=== PATIENT | female | born 1965 | race Caucasian/White ===

== ENCOUNTER 2023-11-13 01:41 | Inpatient (IN) | payer OTHER, SELFPAY ==
[2023-11-12 18:39] VITALS: BP 144/93
[2023-11-12 18:53] LABS: % Basophils 0.9 % (0-2); % Eosinophils 2.1 % (0-6); % Immature Granulocytes 0.8 % (0-0.5); % Lymphocytes 21.2 % (20.5-51.1); % Monocytes 11.8 % (1.7-9.3); % Neutrophils 63.2 % (42.2-75.2); Absolute Basophils 0.1 10^3/uL (0-0.2); Absolute Eosinophils 0.1 10^3/uL (0-0.7); Absolute Immature Granulocytes 0.1 10^3/uL (0-0.05); Absolute Lymphocytes 1.4 10^3/uL (1.2-3.4); Absolute Monocytes 0.8 10^3/uL (0.1-0.6); Absolute Neutrophils 4.2 10^3/uL (1.4-6.5); Hemoglobin 12.1 g/dL (12.0-16.0); Mean Corp Hgb Conc. 35.6 g/dL (33.0-37.0); Mean Platelet Volume 9.4 fL (7.4-10.4); Nucleated Red Blood Cells % 0 %; Platelet Count 152 10^3/uL (130-400); Red Blood Cell Count 3.27 10^6/uL (4.20-5.40); Red Cell Dist. Width 13.5 % (11.5-14.5); White Blood Cell Count 6.6 10^3/uL (4.8-10.8)
[2023-11-12 19:04] LABS: INR 1.05; PT 13.7 Sec (11.4-14.6)
[2023-11-12 19:05] LABS: APTT 31.3 Sec (23.4-35.0)
[2023-11-12 19:12] LABS: ALT (SGPT) 29 U/L (0-35); AST (SGOT) 185 U/L (14-36); Albumin 4.9 g/dl (3.5-5.0); Alkaline Phosphatase 318 U/L (38-126); Blood Urea Nitrogen 14 mg/dl (7-17); Calcium 9.2 mg/dl (8.4-10.2); Carbon Dioxide 23 mmol/L (22-30); Glucose 118 mg/dl (70-99); Total Bilirubin 2.2 mg/dl (0.2-1.3); Total Protein 7.8 g/dl (6.3-8.2); eGFR > 60.00
[2023-11-12 19:33] LABS: Chloride 90 mmol/L (98-107); Potassium 3.8 mmol/L (3.5-5.1); Sodium 135 mmol/L (135-145)
--- NOTE | 2023-11-12 20:15 | ED.GENMED ---
History of Present Illness
General
Chief Complaint: Cough
Source: patient
Exam Limitations: none
Time Seen by Provider: 11/12/23 19:28
Travel History
Have you had any contact with someone who has COVID-19?: No
Do you have any symptoms of coronavirus? Fever > 100 degrees, chills, cough, shortness of breath, sore throat, loss of taste or smell, muscle aches, or headache?: No
History of Present Illness
History of Present Illness:
This is a 58 year old female that comes in with c/o coughing up blood. States that around 2:30pm she started to cough and it was a wet cough from her throat. States that she started to spit out blood. State that this lasted for about 2.5 hours.
States that t was mixed with mucous. States that there was also some blood from her nose. Denies any fever, chills, chest pain, SOB, abd pain, nausea, vomiting, diarrhea, headache, dizziness, urinary burning.
Past History
Past History
ED Past Medical History: Cancer (Mouth cancer, ) and Psychiatric (depression)
ED Past Surgical History: Other (Mouth cancer with removal of Lymph nodes, some of the right jaw removed, )
Social History
Tobacco: Former smoker
Alcohol: Occasional
Personal:
Living: with family
Employment: Employed
Family History
Family History: Other
Review of Systems
Review of Systems
All Other Systems: ROS reviewed and negative except as documented in HPI and ROS
Constitutional: Reports no symptoms; Denies fever or chills
EENT: Reports no symptoms
Respiratory: Reports hemoptysis; Denies trouble breathing
ABD/GI: Reports no symptoms; Denies abdominal pain, nausea, vomiting or diarrhea
: Reports no symptoms; Denies dysuria, frequency or urgency
Musculoskeletal: Reports no symptoms
Skin: Reports no symptoms
Neurological: Reports no symptoms; Denies dizzy or headache
Psychiatric: Reports no symptoms
Phy Exam
General Physical Exam
General Presentation: no apparent distress
General age: appears stated age
General Skin: warm and dry
General Habitus: normal
General Mental: alert
General Hydration: appears well hydrated
ENT Exam
ENT Exam: TM's normal, pharynx normal and neck supple
Eye Exam
Eye Exam: EOMI
Cardiovascular Exam
Cardiovascular Exam: regular rate/rhythm, no edema, normal peripheral pulses and other (Murmur)
Pulmonary Exam
Pulmonary Exam: no respiratory distress, chest non tender, no rhonchi, no wheezing, no cough and other (Fine crackles at bases)
Gastrointestinal Exam
Gastrointestinal Exam: normal bowel sounds, non tender, soft, no organomegaly, no pulsatile mass and non distended
Musculoskeletal Exam
Musculoskeletal Exam: full ROM and no edema
Skin Exam
Skin Exam: normal color, warm/dry, no rash and no petechia
Psychiatric Exam
Psychiatric Exam: normal mood/affect
Course
Orders/Labs/Results
Orders:
Orders
11/12/23 18:46
Alcohol Urgent
Complete Blood Count/With Diff Urgent
Comprehensive Metabolic Panel Urgent
Protime/PTT Urgent
11/12/23 20:14
CT Chest Pe Study Urgent
Comment: HISTORY OF MOUTH CANCER
Reason For Exam: cOUGHING UP BLOOD,
11/12/23 20:15
0.9% Sodium Chloride 500 ml [Nss] 500 ml IV BOLUS
11/12/23 20:23
Add On- LAB Urgent
Tests Added?: alcohol
Pantoprazole [Protonix IV] 40 mg IV NOW STA
11/13/23 01:25
Admit/Transfer Patient As Directed
Co-Sign Provider:
Level of Care: Inpatient admission
Assign to:: IMU- Intermediate Care
Physician / Group: Franki
Diagnosis: Hemoptysis
Reason for Hospitalization: Hemoptysis
Expected length of stay greater than two midnights?: Yes
ELOS- Estimated Length of Stay in days: 2
I certify the patient meets the requirements for IP care: Yes
Lorazepam [Ativan] 0.5 mg IV NOW STA
11/13/23 01:26
Code Status As Directed
Resuscitation Status: Full Code
11/13/23 01:30
COVID-19 Antigen Urgent
Source: Nasal Swab
11/13/23 02:00
Flush (0.9% Sodium Chloride) [Flush (Nss)] See Dose Instructions IV PER PROTOCOL
11/13/23 02:42
0.9% Sodium Chloride 1000 ml [Nss] 1,000 ml IV 125 mls/hr
0.9% Sodium Chloride [Nss (Preservative Free)] See Protocol IV PRN PRN
Acetaminophen [Tylenol] 650 mg PO Q4HPRN PRN
Doxycycline Hyclate [Vibramycin] 100 mg 0.9% Sodium Chloride 250 ml [Nss] 250 ml IV Q12H
FOLic ACID [Folvite] 1 mg 0.9% Sodium Chloride 50 ml [Nss] 50 ml IV DAILYPRN
Lorazepam [Ativan] 1 mg IV Q1HPRN PRN
Lorazepam [Ativan] 1 mg PO Q2HPRN PRN
Lorazepam [Ativan] 2 mg IV Q1HPRN PRN
Ondansetron Injectable [Zofran] 4 mg IV Q6HPRN PRN
Pantoprazole [Protonix IV] 40 mg IV Q12H
11/13/23 02:42
Case Management Consult Once
Case Management Consult: Other
Comment: Substance abuse counseling
Consult Notification Routine
Specialty to Notify: Pulmonary
DIETARY CONSULT Routine
Reason for Consult: Nutrition support, possible refeeding guidelines
PULMONARY CONSULT Routine
Consulting Provider: Andrew Fox
Was physician already notified: No
Reason for consult: Hemoptysis
Ferritin Routine
Iron Routine
Total Iron Binding Routine
Vitamin B12 Routine
Activity As Directed
Activity Level: Bedrest
EKG with chest pain [ECG as needed] As Directed
ECG as needed for:: Chest Pain
I/O [Intake/ Output] As Directed
Frequency: Per unit guidelines
MSAS SCORE As Directed
MSAS Score 0-4: Repeat MSAS every 2 hours until 0-4 for three consecutive assessments, then every 4 hours x 48
hours.
MSAS Score 5-7: For MILD withdrawl symptoms. Repeat MSAS and RASS every 2 hours
MSAS Score 8-11: For MODERATE withdrawal symptoms. Repeat MSAS and RASS every 1 hour. Consider ICU or IMU
level of care.
MSAS Score > 11: For SEVERE withdrawal symptoms. Repeat MSAS and RASS every 1 hour. Notify provider, consider
ICU level of care.
MSAS Additional Instructions: If no improvement or no decrease in score from severe to moderate within 12
hours, consult psychiatry
MSAS Notify Provider: Notify provider if patient requires more than 10 mg of Lorazepam in eight hour period.
Orthostatic Vital Signs As Directed
Orthostatic VS Frequency: BID
Pneumatic Compression Sleeves As Directed
Type: Knee high
Precautions As Directed
Type of Precautions: Aspiration
Quantify Hemopytsis As Directed
Vital Signs As Directed
Frequency: Per unit guidelines
Oxygen Therapy [O2 Therapy] [RESP] Routine
Titrate/Wean O2 to maintain O2 sat greater than (%): 94
DX Deep Vein Thrombosis Video Routine
11/13/23 06:00
Basic Metabolic Panel IN AM
Complete Blood Count/No Diff IN AM
11/13/23 08:00
FOLic ACID [Folvite] 1 mg PO DAILY
Thiamine Injection 200 mg IV Q12
11/13/23 22:00
Mirtazapine [Remeron] 30 mg PO HS
11/14/23 Breakfast
NPO
Allow oral meds: Yes
Allow clear liquids: Sips of Clears
11/16/23 08:00
Thiamine HCl [Vitamin B1] 100 mg PO BID
Abnormal Lab Results
11/12/23
18:46
RBC 3.27 L 10^6/uL
(4.20-5.40)
Hct 34.0 L %
(37.0-47.0)
MCV 104.0 H fL
(81.0-99.0)
MCH 37.0 H pg
(27.0-31.0)
Abs Immat Gran (auto) 0.1 H 10^3/uL
(0-0.05)
Absolute Monos (auto) 0.8 H 10^3/uL
(0.1-0.6)
Immature Gran % 0.8 H %
(0-0.5)
Monocytes % 11.8 H %
(1.7-9.3)
Chloride 90 L mmol/L
(98-107)
Creatinine 0.4 L mg/dL
(0.6-1.0)
Glucose 118 H mg/dl
(70-99)
Total Bilirubin 2.2 H mg/dl
(0.2-1.3)
AST 185 H U/L
(14-36)
Alkaline Phosphatase 318 H U/L
(38-126)
11/12/23 18:46
11/12/23 18:46
Anemia, Chloride low, glucose nonfasting. total chuy elevation. AST elevation. Alk phos elevation. PT 13.7 with INR 1.05, PTT 31.3 Alcohol 64,
Vital Signs
Initial and Last Documented VS:
Initial Vital Signs
Temp Pulse Resp BP Pulse Ox
98.2 F 103 18 144/93 97
11/12/23 18:39 11/12/23 18:39 11/12/23 18:39 11/12/23 18:39 11/12/23 18:39
Last Documented Vital Signs
Temp Pulse Resp BP Pulse Ox
98.2 F 88 21 110/72 98
11/12/23 18:39 11/13/23 02:15 11/13/23 02:15 11/13/23 02:00 11/12/23 20:24
MDM/Problems Addressed
Differential Diagnosis Includes:
PNA, PE, Metastatic disease
MDM/Problems Addressed:
This is a 58 year old female that comes in with c/o coughing up blood. states that she just started about 2:30pm with a wet cough that was blood and mixed with mucous. States that this lasted for about 2.5 hours and now seems to have stopped.
Will get labs and CT chest
Back to see patient and was going to discharge but patient started cought up clots of blood. Will admit. Hospitalist notified.
Chronic conditions affecting care: Cancer
Acute Exacerbation and/or Progression of Chronic Illness: Cancer
*Radiology
Radiology exam reviewed: radiology read reviewed (CT-No CT evidence for pulmonary embolism. No aortic dissection. Stable exam of the lungg. No adenopathy. Fatty infiltration of the liver. )
*Pulse Oximetry
Patient hypoxic: no
*EKG
Interpreted by ED Provider?: NA
Rate: EKG- N/A
*Independent Freight Agent Interpretation
Rate: Independent Freight Agent- N/A
*Critical Care Note
Total Time (30-74mins, 75-104mins- exclusive of procedures): Not Applicable
ED Attending Note
-
Portions of this chart may have been created with voice recognition software.� Occasional wrong word or��sound alike� substitutions may have occurred due to the inherent limitations of voice recognition software.
Discharge Plan
Departure
Patient Disposition: Admit
Date of Disposition: 11/12/23
Time of Disposition: 23:56
Admit to: IMU
Presentation/result/management discussed w/ accepting MD/DO: Hospitalist
Patient with high blood pressure during this ER visit?: Yes
Condition: Good
Covid-19: Not Applicable
Discharge Problem:
Hemoptysis
Interventions
Interventions:
*Risk Screen - Suicide Last Done: 11/12/23 18:39
*General Assessment Last Done: 11/12/23 18:39
*Neglect/Abuse Screening Last Done: 11/12/23 18:39
ED- Fall Risk Assessment Last Done: 11/13/23 00:58
*ED COVID-19 Vaccine History Last Done: 11/13/23 02:50
*Nursing Disposition Last Done: 11/13/23 02:48
ED- Pulmonary Assessment Last Done: 11/13/23 00:58
Discharge Date and Time
Discharge Date/Time: 11/13/23 02:49
[2023-11-12 20:24] VITALS: BP 127/84
[2023-11-12] MEDS: PROTONIX IV 40 MG IV (20:44)
[2023-11-12] MEDS: NSS 500 IV (20:45)
[2023-11-12 20:48] LABS: Alcohol 64 mg/dl
[2023-11-13] VITALS (17 sets, daily range): BP systolic 110–156; BP diastolic 72–96; PULSE 80–99; BMI 21.6; BMI 20.9; BMI 20.8
--- NOTE | 2023-11-13 01:34 | HPS.HSE ---
Family Physician
-
Family Physician: Ponce Iyer
Chief Complaint
-
Coughing up blood
History of Present Illness
Patient is a 58y F with PMH significant for squamous cell carcinoma of the mouth who presents to ED complaining of coughing up blood. Patient states that she was feeling fairly well until about 2:30 this afternoon when she developed a 'wet
sounding cough'. Patient states that she started to cough up bright red blood. This went on for roughly 2 1/2 hours during which patient estimates she coughed up 1-2 cups of blood total. She presented initially to an Urgent Care and was then
directed to the ED. Patient had no further coughing or other symptoms during her several hour stay here. CT scan of the chest done in the ED was unremarkable.
Around 12:30 AM, patient again began to cough and again produced significant amounts of bright red blood.
She denies any fevers, chills, chest pain, SOB, N/V/D, etc.
Medical History
Past Medical History
Past Medical History: Reports Other
Additional Past Medical History:
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
Anxiety / Depression
Past Surgical History: Reports Other
Additional Past Surgical History:
Right Head / Neck Dissection and Carcinoma Excision (2020)
Social History
Tobacco: Former Smoker (Quit smoking 10 years ago. Approx 20 pack years total use.)
Alcohol: Occasional (Patient reports about 4 drinks per week.)
Drug: None
Personal:
Living: With Family
Family History
Family History: Hypertension and Other (Father: Blood clots.)
Allergies / Home Medications
Allergies reflects when Allergies were last updated in [facility].
Home Medications with original date entered in [facility]
Allergy/Medication List:
Allergies
Allergy/AdvReac Type Severity Reaction Status Date / Time
Penicillins Allergy Hives Verified 11/12/23 18:41
seasonal Allergy Unknown Uncoded 11/12/23 18:41
Home Medications
mirtazapine 30 mg tablet 30 mg PO HS 11/12/23
Review of Systems
-
History Source: Patient
A 12 point ROS was completed and negative except as noted: Yes
Constitutional: Denies Fever, Fatigue or Chills
EENT: Denies Sore Throat or Runny Nose
Respiratory: Reports Cough and Hemoptysis; Denies Trouble Breathing
Cardiac: Denies Chest Pain or Palpitations
Abdomen/GI: Denies Abdominal Pain, Nausea, Vomiting, Diarrhea, Bloody Stools or Black Stools
: Denies Dysuria, Frequency, Flank Pain or Bleeding
Musculoskeletal: Denies Joint Pain, Joint Swelling or Edema
Neurological: Reports Headache; Denies Dizzy
Psych: Reports Anxiety; Denies Depression
Physical Exam
Vital Signs
Vital Signs
Temp Pulse Resp BP Pulse Ox
98.2 F 76 20 127/84 98
11/12/23 18:39 11/12/23 20:24 11/12/23 20:24 11/12/23 20:24 11/12/23 20:24
Physical Exam
General: Other (58y F in mild distress due to anxiety / cough.)
HEENT: Moist mucous membranes, PERRLA and Other (Post-surgical changes in the mouth - but no mucosal lesions and no appreciated bleeding.)
Respiratory: Other (Focal rales are appreciated at the L base and over the R mid-lung. No other W/R/R.)
Cardiac: S1/S2 and Regular Rhythm; No Murmur
GI: Soft, Non Tender, Non Distended and Normal Bowel Sounds
Musculoskeletal: No Clubbing, No Cyanosis and No Edema
Neuro: AO x 3
Psych: Anxious
Laboratory Results
-
11/12/23 18:46
11/12/23 18:46
Laboratory Results
PT 13.7 Sec (11.4-14.6) 11/12/23 18:46
INR 1.05 11/12/23 18:46
APTT 31.3 Sec (23.4-35.0) 11/12/23 18:46
Total Bilirubin 2.2 mg/dl (0.2-1.3) H 11/12/23 18:46
AST 185 U/L (14-36) H 11/12/23 18:46
ALT 29 U/L (0-35) 11/12/23 18:46
Alkaline Phosphatase 318 U/L (38-126) H 11/12/23 18:46
Impression/Plan
-
A/P: Patient is a 58y F with PMH significant for squamous cell carcinoma of the mouth who presents to ED complaining of hemoptysis.
Hemoptysis
- Admit for further evaluation and treatment.
- CT chest with no acute findings to explain current presentation.
- Infectious etiology / bronchitis remains most likely possibility - will cover with doxycycline for now.
- Pulmonary evaluation for additional work-up / recommendations - though not entirely certain blood is pulmonary in origin.
- Quantify hemoptysis.
- Check COVID status.
- Monitor for any new / worsening symptoms, developing fevers, etc.
- Follow H&H for any changes.
Alcohol Use Disorder
Anxiety / Depression
- Patient with positive alcohol level and abnormal LFTs today in the ED.
- ? if alcohol intake as noted on H&P is understated. Patient notes that her checked into an alcohol rehab center this AM.
- Follow for signs / symptoms of withdrawal and treat with as-needed BZDs.
- Thiamine / folate / MVI replacement.
- IV PPI BID for now.
- Consider GI evaluation if no Pulmonary source of bleeding can be determined.
- Heme test stools.
- Continue HS mirtazapine.
History of Squamous Cell Carcinoma
- Patient s/p head and neck surgery 3 years ago. No adjuvant treatments done at that time.
- Basic oropharyngeal exam in the ED is unremarkable with no evident lesions and no source of bleeding.
- Consider ENT evaluation if other source of bleeding cannot be identified.
DVT Prophylaxis: SCDs
Code Status: Full
[2023-11-13] MEDS: ATIVAN 0.5 MG IV (01:38)
[2023-11-13 01:58] LABS: COVID-19 Antigen Negative (Negative)
[2023-11-13 03:15] LABS: Hematocrit 29.6 % (37.0-47.0); Mean Corp Hgb Conc. 37.2 g/dL (33.0-37.0); Mean Corpuscular Hgb 37.8 pg (27.0-31.0); Mean Corpuscular Volume 101.7 fL (81.0-99.0); Mean Platelet Volume 9.6 fL (7.4-10.4); Platelet Count 127 10^3/uL (130-400); Red Blood Cell Count 2.91 10^6/uL (4.20-5.40); Red Cell Dist. Width 13.5 % (11.5-14.5); White Blood Cell Count 5.7 10^3/uL (4.8-10.8)
[2023-11-13 03:38] LABS: Blood Urea Nitrogen 13 mg/dl (7-17); Calcium 8.4 mg/dl (8.4-10.2); Carbon Dioxide 25 mmol/L (22-30); Chloride 92 mmol/L (98-107); Estimated Creatinine Clearance 93 ml/min; Glucose 92 mg/dl (70-99); Iron 232 ug/dl (37-170); Potassium 3.5 mmol/L (3.5-5.1); Sodium 130 mmol/L (135-145); eGFR > 60.00
[2023-11-13 03:46] LABS: Percent Saturation 111 % (20-50); Total Iron Binding Capacity 208 ug/dl (265-497)
[2023-11-13] MEDS: REMERON 30 MG PO ×2 (04:24→21:45)
[2023-11-13] MEDS: NSS 1000 IV ×3 (04:25→21:45)
[2023-11-13] MEDS: VIBRAMYCIN 260 MG IV ×2 (04:25→15:37)
[2023-11-13 04:47] LABS: Vitamin B12 349 pg/ml (239-931)
--- NOTE | 2023-11-13 05:08 | PTCARENOTE ---
received patient from the ER. ambulated from the stretcher to bed with minimal assist. slightly unsteady on her feet. alert and orientated x3. pleasant and cooperative. pt on room air sats in the high 90's. NS on the monitor. no further episodes of
coughing up blood since shes been on the floor. NPO except for sips of clears and meds. +BS. NSS infusing with ATB's. ambulated to the bathroom with assist without incident. labs pending.
--- NOTE | 2023-11-13 05:10 | PTCARENOTE ---
pt expressed concern to me that she has 4 dogs at home and she doesn't have anyone to take care of them while she is here. will notify the oncoming nurse.
--- NOTE | 2023-11-13 07:43 | CON.INTV ---
Consultation
Consultation Request
Date/Time Consultation Requested: 11/13/2023-7 AM
Date/Time Consultation Performed: 11/13/2023-7:30 AM
Requesting Provider: hospitalist
Performing Provider: Dr. Fox
Reason for Consultation: Hemoptysis
Medical History
-
Chief Complaint: Hemoptysis
History of Present Illness:
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
Patient states that she has never had hemoptysis before. She was to see ENT at [place] in October. She has not had any evidence for recurrence. She quit smoking 10 years ago. She is not on inhalers. She currently denies any chest pain, chest
tightness, pleurisy, abdominal pain, nausea, vomiting, weakness, and admits to drinking 2-3 drinks several times weekly but never been through withdrawal. Her was admitted to rehab yesterday for alcohol use disorder. She has 4 dogs and she
needs someone to take care of them. She is requesting to be discharged soon as possible.
Past Medical History
Past Medical History: None (Head and neck CA-squamous cell 3 years ago stage I-resected [place]. Anxiety. Depression. Frequent alcohol use-denies ever going through withdrawal.)
Social History
Tobacco: Former Smoker (00-xnyc-omci quit 10 years ago)
Alcohol: Daily (Several times weekly)
Drug: None
Personal:
Living: With Family
Occupational Exposures: No known asbestos exposure
Environmental Exposures: No known tuberculosis exposure
Family History
Family History: Reviewed & Not Pertinent and Other (Hypertension and father with 'blood clots')
Allergies / Home Medications
Allergies
Allergy/AdvReac Type Severity Reaction Status Date / Time
Penicillins Allergy Hives Verified 11/12/23 18:41
seasonal Allergy Unknown Uncoded 11/12/23 18:41
Home Medications
Medication Instructions Recorded Confirmed Last Taken Type
mirtazapine 30 mg tablet 30 mg PO HS 11/12/23 11/12/23 11/11/23 History
Review of Systems
-
Unable to Obtain full review of systems at this time due to: Other (Per HPI)
Vitals / Labs / Diagnostic Testing
Vital Signs
Temp Pulse Resp BP Pulse Ox
98.6 F 97 43 119/81 96
11/13/23 04:23 11/13/23 06:15 11/13/23 06:15 11/13/23 06:00 11/13/23 06:15
Lab Data
11/13/23 03:05
11/13/23 03:05
Laboratory Results
11/12/23
18:46
PT 13.7
INR 1.05
APTT 31.3
Diagnostic Testing:
Physical Exam
-
Exam:
Well-nourished and well-developed in no apparent distress
HEENT-atraumatic, normocephalic
Neck-supple, no JVD, no bruit
Heart-regular rate and rhythm-no murmurs, rubs or gallops
Chest-clear to auscultation, no wheezes, crackles
Back-no tenderness
Abdomen-soft, nontender, nondistended, no hepatosplenomegaly
Extremities-no cyanosis, clubbing, edema and good peripheral pulses
Integument-intact, no rashes, lesions or ecchymosis
Neurology-alert and oriented, nonfocal motor and sensory exam
Assessment
-
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
Assessment
Hemoptysis-suspect related to bronchitis-will need ENT evaluation and if persists consider bronchoscopy
Mild zciset-rgjokpojzy-vsarvtgedh 11.0
Mild thrombocytopenia
Mild hyponatremia-serum sodium 130
Elevated total bilirubin
AST elevation
Elevated TSH
Alcohol level 64
Conditions present prior to admission:
Head and neck CA-squamous cell 3 years ago stage I-resected [place].
Anxiety.
Depression.
Fatty liver
Frequent alcohol use-denies ever going through withdrawal-possible alcohol use disorder
Abnormal CT chest-pulmonary nodule-2 mm right upper lobe and 6 mm wedge-shaped opacification, stable for 2.5 years
Plan
Hemoptysis has resolved and etiology unclear
CT chest reviewed and does not reveal etiology of hemoptysis
ENT evaluation with her ENT physician at [facility] recommended
If hemoptysis recurs and no head and neck reasons for hemoptysis then bronchoscopy may be indicated
Not requiring oxygen
Check sputum
Empiric antibiotics
Monitor for alcohol withdrawal and treatment protocol if indicated
admitted to rehab for alcohol abuse yesterday and she reports they have 4 dogs and would like to be discharged to take care of them as her neighbor can no longer take care of them-I relayed this to primary team
Follow hemoglobin
Check B12 and folate levels
Monitor thrombocytopenia
Replace electrolytes
Follow LFTs
Consider repeat TSH as an outpatient or low-dose replacement therapy
DVT prophylaxis-mechanical with hemoptysis
Nutrition
Early mobilization
Outpatient pulmonary exdeek-pf-[id number], monitor hemoptysis, consider yearly low-dose lung cancer screening CT if qualifies
Reviewed with nursing and primary team
Diagnostic data:
CT neck 04/12/2021-site of primary malignancy is not clearly identified on the CT, negative for lymphadenopathy
CT neck 08/05/2023-postoperative changes, no recurrent mass lesion or lymphadenopathy identified
CT chest 09/26/22-6 mm somewhat triangular-shaped opacification right upper lobe [id number]-teeq possibly chronic, no suspicious lymphadenopathy or pleural effusions
CT chest 08/05/2023-no findings suspicious for metastatic disease, interval development of hepatic fatty infiltration, mild right hemidiaphragm elevation
CT chest 11/12/2023-no CT evidence for pulm embolism, no dissection, tiny 2 mm nodule right upper lobe which in retrospect was present on prior exam 2 and half years ago and likely benign, 6 mm wedge-shaped opacification also seen and unchanged
PET scan 04/18/2021-focal region of FDG activity right lateral floor of oral cavity consistent with patient's known oral squamous cell carcinoma SUV max 4.7, delayed 5.3, no PET evidence for metastatic disease
Data Reviewed
-
EKG: Report reviewed by me
Radiology: Report reviewed by me
CT Scan: Image personally visualized and interpreted and Report reviewed by me
Labs: Labs reviewed by me
Old Records: Reviewed
Total Time Spent with Patient (in minutes): 50
--- NOTE | 2023-11-13 08:03 | W.PN.HOSP.TC ---
Today's Communication/Plan
-
Check labs
Echo
Pulmonary consult
Resume diet
Fluid restriction
Assessment / Plan
Assessment / Plan
Gen-AAOx3, NAD
HEENT-NC, AT, anicteric, clear oral mm
Neck-supple
CV-reg, positive M, +S1/S2
Lungs-clear B/L
Abd-soft, NT, ND
Ext-no edema
Musculoskeletal-no cyanosis, clubbing
Skin-warm and dry
Neuro-grossly non-focal
Psych-calm, cooperative
Acute hemoptysis -possibly due to acute tracheobronchitis. No evidence of pneumonia. Not hypoxic. CT chest negative for pulmonary embolism. Doubt malignancy recurrence. Pulmonary consulted.
Acute anemia, macrocytic -hemoglobin 11.0. Possibly acute blood loss anemia due to hemoptysis. Check anemia labs. Hemodynamically stable.
Acute thrombocytopenia -platelet count 127k, possibly due to consumption. Monitor for now.
Hyponatremia -sodium 130. Possibly due to bleeding. Alcohol use may be contributing. Fluid restriction. Check labs.
History of stage I head and neck cancer -resected in 2020 at [facility]. Follow-up with ENT after discharge.
Moderate mitral regurgitation -noted on prior echo from May 2022. Check echocardiogram for follow-up given ongoing murmur.
Alcohol use disorder -recommend cutting down.
Full code
Anticipated Discharge: Within 24 hours
Subjective/Interval History
-
Date of Service: November 13, 2023
Patient seen/examined, Denies further hemoptysis. No shortness of breath. No complaints.
Objective Data
-
Labs:
Laboratory Results
11/13/23
03:05
WBC 5.7
Hgb 11.0 L
Hct 29.6 L
Plt Count 127 L
Sodium 130 L
Potassium 3.5
Chloride 92 L
Carbon Dioxide 25
BUN 13
Creatinine 0.4 L
Glucose 92
Calcium 8.4
Total Bilirubin Pending
AST Pending
ALT Pending
Alkaline Phosphatase Pending
Vital Signs:
Vital Signs
Temp Pulse Resp BP Pulse Ox
98.6 F 97 43 119/81 96
11/13/23 04:23 11/13/23 06:15 11/13/23 06:15 11/13/23 06:00 11/13/23 06:15
Review of Systems
-
History Source: Patient
All other systems: Reviewed and negative
[2023-11-13 08:06] LABS: ALT (SGPT) 24 U/L (0-35); AST (SGOT) 133 U/L (14-36); Albumin 4.1 g/dl (3.5-5.0); Alkaline Phosphatase 270 U/L (38-126); Direct Bilirubin 0.9 mg/dl (0.0-0.4); Total Bilirubin 2.5 mg/dl (0.2-1.3); Total Protein 6.7 g/dl (6.3-8.2)
[2023-11-13] MEDS: FOLVITE 1 MG PO (08:36)
[2023-11-13] MEDS: NSS (PRESERVATIVE FREE) 10 ML IV ×2 (08:36→19:47)
[2023-11-13] MEDS: THIAMINE INJECTION 200 MG IV ×2 (08:37→19:47)
[2023-11-13] MEDS: PROTONIX IV 40 MG IV ×2 (08:37→19:47)
[2023-11-13 08:52] LABS: Cortisol, Random 18.9 ug/dl; TSH 8.26 uIU/ml (0.47-4.68)
[2023-11-13 09:28] LABS: Folate 2.7 ng/ml (2.76-20)
--- NOTE | 2023-11-13 11:09 | CM ---
CM following re: discharge planning.
Discussed in Rounds, reviewed pt's chart, met with pt.
Pt is a 58 year old female, admitted with primary dx of Acute hemoptysis.
Pt reports she lives with in a 2SH, 3 steps to enter, has no children, has 4 dogs. Pt reports her currently at [facility] inpatient residential D&A rehab. Pt admitted to sig h/o alcohol abuse, pt stated she has been
drinking for all her entire life, stopped drinking last year on [place] and relapsed yesterday. Pt reports her drink of choice is vodka and she usually drinks 3-4 glasses of vodka daily. Pt stated her father was alcoholic. Pt reports she feels she
will need to go to inpatient D&A rehab but cannot do it right now because she has to care for dogs at home. Pt reports she will go to inpatient D&A rehab when her returns back home after the completion of his inpatient residential D&A
program. Pt reports she has been receiving counseling services from [facility] D&A program center
CM provided pt with information regarding [facility] and pt stated that [facility] helped her to get to inpatient residential D&A rehab and she expressed her agreement to meet with [facility] team. A referral to [facility] made, spoke to MARCELLE Fuentes and she
will meet with pt today.
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 No VN or SNF history.
PCP: [facility]
Ph[facility]acy: [facility]
D/C plan: home with resumptions of counseling services at [facility] and to follow up with [facility].
CM will follow with discharge plan updates as hospitalization progresses
--- NOTE | 2023-11-13 11:50 | PTCARENOTE ---
Completed assessment done this morning, Pt assisted to bathroom several times today, voiding without difficulty yellow urine. Pt is steady on feet, however pt knows to use her call hunt before she gets up. Pt without any coughing up blood episodes
today. Emesis basin at bedside. HR SR as per monitor, BP stable, sl murmur heard on auscultation. O2 sat= 95% on room air, lobes clear bilat. Pt ate breakfast without any difficulties. Pt able to go to IMU bed when available. Call hunt at her side.
[2023-11-13 14:02] LABS: Osmolality Urine 334 mOsm/kg (300-900)
[2023-11-13 14:04] LABS: Free T4 1.33 ng/dl (0.78-2.19)
[2023-11-13 14:11] LABS: Urine Sodium 90 mmol/L (30-90)
[2023-11-13] MEDS: VITAMIN B-12 1000 MCG PO (14:54)
--- NOTE | 2023-11-13 20:00 | PTCARENOTE ---
Assume care from AM RN. AAOx3. MSAS score 2-3. NSR in the monitor. Lung sounds are clear and diminished at the bases. SaO2 04% RA. Shallow breathing. Frequent urination. GI WNL. Pt appears comfortable in bed and call hunt within reach.
[2023-11-14] VITALS: BP 124/73
[2023-11-14 02:00] VITALS: BP 126/86
[2023-11-14 04:00] VITALS: BP 120/84
[2023-11-14] MEDS: VIBRAMYCIN 260 MG IV (04:12)
[2023-11-14 04:41] LABS: Hemoglobin 9.5 g/dL (12.0-16.0); Mean Corp Hgb Conc. 35.2 g/dL (33.0-37.0); Mean Corpuscular Hgb 36.8 pg (27.0-31.0); Mean Corpuscular Volume 104.7 fL (81.0-99.0); Mean Platelet Volume 10.2 fL (7.4-10.4); Platelet Count 117 10^3/uL (130-400); Red Blood Cell Count 2.58 10^6/uL (4.20-5.40); Red Cell Dist. Width 13.3 % (11.5-14.5); White Blood Cell Count 4.4 10^3/uL (4.8-10.8)
[2023-11-14 04:52] VITALS: BP 125/81
[2023-11-14 05:03] LABS: Blood Urea Nitrogen 8 mg/dl (7-17); Calcium 7.7 mg/dl (8.4-10.2); Carbon Dioxide 26 mmol/L (22-30); Chloride 106 mmol/L (98-107); Estimated Creatinine Clearance 89 ml/min; Glucose 88 mg/dl (70-99); Potassium 3.1 mmol/L (3.5-5.1); Sodium 137 mmol/L (135-145); eGFR > 60.00
[2023-11-14] MEDS: KCL 40 MEQ PO (05:46)
[2023-11-14] MEDS: NSS 1000 IV (05:46)
[2023-11-14 06:00] VITALS: BP 123/86
--- NOTE | 2023-11-14 07:05 | W.PN.PUL.V3 ---
Today's Communication / Plan
-
Monitor hemoptysis-appears to have resolved
Finite course of antibiotics
Outpatient pulmonary follow-up
Assessment
-
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
Assessment
Hemoptysis-suspect related to bronchitis-will need ENT evaluation and if persists consider bronchoscopy
Mild vamywg-npcuavsssu-busdxoqstq 11.0
Mild thrombocytopenia
Mild hyponatremia-serum sodium 130
Elevated total bilirubin
AST elevation
Elevated TSH
Alcohol level 64
Conditions present prior to admission:
Head and neck CA-squamous cell 3 years ago stage I-resected [facility].�
Anxiety.�
Depression.
Fatty liver
Frequent alcohol use-denies ever going through withdrawal-possible alcohol use disorder
Abnormal CT chest-pulmonary nodule-2 mm right upper lobe and 6 mm wedge-shaped opacification, stable for 2.5 years
Plan
Hemoptysis resolved
Note CT chest reviewed and does not reveal etiology of hemoptysis
ENT evaluation with her ENT physician at [facility] recommended
If hemoptysis recurs and no head and neck reasons for hemoptysis then bronchoscopy may be indicated
Supplemental oxygen as needed-currently on room air
Check sputum-unable to produce sputum
Empiric antibiotics-finite course
Monitor for alcohol withdrawal and treatment protocol if indicated
admitted to rehab for alcohol abuse yesterday and she reports they have 4 dogs and would like to be discharged to take care of them as her neighbor can no longer take care of them-I relayed this to primary team
Monitor hemoglobin
Folate 2.7
B12 pending
Random cortisol 18.9
TSH mildly elevated 8.26
Follow thrombocytopenia
Continue to replace electrolytes
Follow LFTs-can be followed up as an outpatient
Consider repeat TSH as an outpatient and consider low-dose replacement therapy if TSH rising
DVT prophylaxis-mechanical with hemoptysis
Nutrition
Increase activity
Outpatient pulmonary [id number]-uu-NEEn, monitor hemoptysis, consider yearly low-dose lung cancer screening CT if qualifies
Stable for proposed discharge
Reviewed with nursing and primary team
Diagnostic data:
CT neck 04/12/2021-site of primary malignancy is not clearly identified on the CT, negative for lymphadenopathy
CT neck 08/05/2023-postoperative changes, no recurrent mass lesion or lymphadenopathy identified
CT chest 09/26/22-6 mm somewhat triangular-shaped opacification right upper lobe jhj-ouya-pobv possibly chronic, no suspicious lymphadenopathy or pleural effusions
CT chest 08/05/2023-no findings suspicious for metastatic disease, interval development of hepatic fatty infiltration, mild right hemidiaphragm elevation
CT chest 11/12/2023-no CT evidence for pulm embolism, no dissection, tiny 2 mm nodule right upper lobe which in retrospect was present on prior exam 2 and half years ago and likely benign, 6 mm wedge-shaped opacification also seen and unchanged
PET scan 04/18/2021-focal region of FDG activity right lateral floor of oral cavity consistent with patient's known oral squamous cell carcinoma SUV max 4.7, delayed 5.3, no PET evidence for metastatic disease
Subjective Data
-
Date of Service:
Date of Service: November 14, 2023
Chief Complaint: Pulmonary Follow Up and Dyspnea Follow Up
Subjective:
Feels better, anxious to be discharged home, no hemoptysis, no shortness of breath, chest pain or abdominal pain
Review of Systems
General: Other (Per HPI)
Objective Data
Data Reviewed
Vital Signs / I&O:
Vital Signs
Temp Pulse Resp BP Pulse Ox
98.2 F 88 18 123/86 94
11/14/23 04:20 11/14/23 06:00 11/14/23 06:00 11/14/23 06:00 11/14/23 04:52
Intake and Output
11/13/23 11/14/23 11/15/23
06:59 06:59 06:59
Intake Total 4815 / 4815
Output Total 1450 / 1450
Balance 3365 / 3365
SaO2: 94
Physical Exam
General: Respiratory Distress (n) and Comfortable
HEENT: Normocephalic, Anicteric and Moist Mucous Membranes
Cardiovascular: Regular Rhythm
Respiratory: Wheeze (n), Crackles (n), Rhonchi, Non-Labored Respirations and Accessory Resp Muscle Use (n)
GI: Soft, Non Distended and Non Tender
Neurology: Awake, Alert and No Motor Deficits
Skin: Warm, Good Color and Cyanosis (n)
Labs/Micro/Reports
Lab Data
11/14/23 04:20
11/14/23 04:20
[2023-11-14] MEDS: VITAMIN B-12 1000 MCG PO (07:39)
[2023-11-14] MEDS: FOLVITE 1 MG PO (07:39)
[2023-11-14] MEDS: THIAMINE INJECTION 200 MG IV (07:40)
[2023-11-14] MEDS: PROTONIX IV 40 MG IV (07:40)
[2023-11-14] MEDS: NSS (PRESERVATIVE FREE) 10 ML IV (07:40)
[2023-11-14 08:00] VITALS: BP 124/83
--- NOTE | 2023-11-14 08:11 | W.PN.HOSP.TC ---
Today's Communication/Plan
-
Discharge
Assessment / Plan
Assessment / Plan
Gen-AAOx3, NAD
HEENT-NC, AT, anicteric, clear oral mm
Neck-supple
CV-reg, positive M, +S1/S2
Lungs-clear B/L
Abd-soft, NT, ND
Ext-no edema
Musculoskeletal-no cyanosis, clubbing
Skin-warm and dry
Neuro-grossly non-focal
Psych-calm, cooperative
Acute hemoptysis -possibly due to acute tracheobronchitis. No evidence of pneumonia. Not hypoxic. CT chest negative for pulmonary embolism. Doubt malignancy recurrence. Appreciate pulmonary input.
Acute anemia, macrocytic -hemoglobin down to 9.5. Possibly acute blood loss anemia due to hemoptysis. Component of dilution from IV fluids possible. B12 and folic acid deficiency noted, likely contributing factor to her anemia. Continue oral
repletion.
Acute thrombocytopenia -platelet count 117k, possibly due to consumption. Monitor for now.
Pancytopenia -as above. Recommend alcohol cessation. Discussed with patient. Monitor CBC after discharge with PCP.
Hyponatremia -sodium 137. Possibly due to bleeding. Alcohol use may be contributing. Fluid restriction.
History of stage I head and neck cancer -resected in 2020 at [facility]. Follow-up with ENT after discharge.
Moderate mitral regurgitation -noted on prior echo from May 2022. Echocardiogram unchanged. Outpatient follow-up.
Alcohol use disorder -recommend cutting down. Discussed with patient.
Full code
Dispo -stable for discharge. Recommend outpatient follow-up with pulmonary. Follow-up with PCP next week. Advised to return to the emergency room with significant hemoptysis.
32 minutes spent in discharge process.
Anticipated Discharge: Today
Subjective/Interval History
-
Date of Service: November 14, 2023
Patient seen and examined. Eager to go home. No more hemoptysis.
Objective Data
-
Labs:
Laboratory Results
11/14/23
04:20
WBC 4.4 L
Hgb 9.5 L
Hct 27.0 L
Plt Count 117 L
Sodium 137
Potassium 3.1 L
Chloride 106
Carbon Dioxide 26
BUN 8
Creatinine 0.4 L
Glucose 88
Calcium 7.7 L
Vital Signs:
Vital Signs
Temp Pulse Resp BP Pulse Ox
98.5 F 88 18 123/86 94
11/14/23 08:10 11/14/23 06:00 11/14/23 06:00 11/14/23 06:00 11/14/23 07:05
I&O
11/13/23 11/14/23 11/15/23
06:59 06:59 06:59
Intake Total 4815 / 4815
Output Total 1450 / 1450
Balance 3365 / 3365
Review of Systems
-
History Source: Patient
All other systems: Reviewed and negative
--- NOTE | 2023-11-14 08:26 | W.DS.TRANS ---
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
-
Discharge Instructions:
Discharge Diagnosis/Procedures Acute bronchitis, hemoptysis, pancytopenia,
elevated liver enzymes
Diet Regular
Activity As tolerated
Driving Restrictions As prior to admission
Bathing Restrictions None
Blood Work CBC and CMP next week with your primary care
doctor
Instructions:
Stand-Alone Forms:
Changes to Home Medications: No
Discharge Medications:
DC Medications w/original date entered in [employer]
mirtazapine 30 mg tablet 30 mg PO HS 11/12/23
cyanocobalamin (vitamin B-12) 1,000 mcg tablet 1,000 mcg PO DAILY #30 tabs 11/14/23
doxycycline monohydrate 100 mg capsule 100 mg PO BID #10 caps 11/14/23
folic acid 1 mg tablet 1 mg PO DAILY #30 tabs 11/14/23
thiamine HCl (vitamin B1) 100 mg tablet 100 mg PO BID #60 tabs 11/14/23
Home Medication Changes
Pending Results: No
--- NOTE | 2023-11-14 08:39 | PTCARENOTE ---
Complete assessment done and documented in chart/worklist. Pt seen by Dr Burger and Dr Fox this morning. Pt OOB, ambulating to BR with minimal assistance. Labs reviewed by Dr Burger. Pt back to bed, eating breakfast, O2 sat=97% on R/A, MSAS=1.
VSS.
--- NOTE | 2023-11-14 09:41 | PTCARENOTE ---
Pt cleared to be discharged to home as per Dr Burger. R FA INT d/c'd. All discharge instructions and med list reviewed and signed by pt. Pt brought to discharge area via wheel chair. Pt walked to [employer] car door. (Sandro, the delivery driver taking pt home)
--- NOTE | 2023-11-14 13:45 | W.DS.TRANS ---
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
-
Discharge Instructions:
Discharge Diagnosis/Procedures Acute bronchitis, hemoptysis, pancytopenia,
elevated liver enzymes
Diet Regular
Activity As tolerated
Driving Restrictions As prior to admission
Bathing Restrictions None
Blood Work CBC and CMP next week with your primary care
doctor
Instructions:
Stand-Alone Forms:
Changes to Home Medications: No
Discharge Medications:
DC Medications w/original date entered in [employer]
mirtazapine 30 mg tablet 30 mg PO HS 11/12/23
cyanocobalamin (vitamin B-12) 1,000 mcg tablet 1,000 mcg PO DAILY #30 tabs 11/14/23
doxycycline monohydrate 100 mg capsule 100 mg PO BID #10 caps 11/14/23
folic acid 1 mg tablet 1 mg PO DAILY #30 tabs 11/14/23
magnesium 250 mg tablet 250 mg PO BID #20 tabs 11/14/23
thiamine HCl (vitamin B1) 100 mg tablet 100 mg PO BID #60 tabs 11/14/23
Home Medication Changes
Pending Results: No
== END 2023-11-14 09:32 | disposition home or self-care (01) | DRG 202 ==
LOC: ICU 01:41
PROVIDERS: Emergency Medicine; Nurse Practitioner Family; ADMITTING PHYSICIAN Hospitalist; ATTENDING PHYSICIAN Hospitalist; CONSULT PHYSICIAN Internal Medicine Critical Care Medicine; EMERGENCY PHYSICIAN Emergency Medicine; FAMILY PHYSICIAN Family Medicine
DX: J20.9 Acute bronchitis, unspecified (principal); D61.818 Other pancytopenia; E87.1 Hypo-osmolality and hyponatremia; R04.2 Hemoptysis; Z87.891 Personal history of nicotine dependence; F32.A Depression, unspecified; F41.9 Anxiety disorder, unspecified; F10.10 Alcohol abuse, uncomplicated; Z85.819 Personal history of malignant neoplasm of unspecified site of lip, oral cavity, and pharynx; E83.42 Hypomagnesemia; Z11.52 Encounter for screening for COVID-19; E53.8 Deficiency of other specified B group vitamins
CPT/HCPCS: 71275; 80048; 80053; 82077; 82248; 82533; 82607; 82728; 82746; 83540; 83550; 83735; 83935; 84300; 84439; 84443; 85025; 85027; 85610; 85730; 87811; 93306; 96361; 96374; 99285; Q9967

== ENCOUNTER 2024-05-11 06:16 | Day surgery (SDC) | payer OTHER, SELFPAY ==
[2024-05-11 08:28] VITALS: BP 99/70
[2024-05-11 08:32] VITALS: BMI 20.4
[2024-05-11 08:58] LABS: % Eosinophils 1.6 % (0-6); % Immature Granulocytes 0.5 % (0-0.5); % Lymphocytes 16.9 % (20.5-51.1); % Monocytes 7.5 % (1.7-9.3); % Neutrophils 72.5 % (42.2-75.2); Absolute Basophils 0.1 10^3/uL (0-0.2); Absolute Eosinophils 0.2 10^3/uL (0-0.7); Absolute Immature Granulocytes 0.1 10^3/uL (0-0.05); Absolute Lymphocytes 1.9 10^3/uL (1.2-3.4); Absolute Monocytes 0.9 10^3/uL (0.1-0.6); Absolute Neutrophils 8.3 10^3/uL (1.4-6.5); Hematocrit 28.4 % (37.0-47.0); Hemoglobin 9.4 g/dL (12.0-16.0); Mean Corp Hgb Conc. 33.1 g/dL (33.0-37.0); Mean Corpuscular Hgb 34.3 pg (27.0-31.0); Mean Corpuscular Volume 103.6 fL (81.0-99.0); Mean Platelet Volume 10.3 fL (7.4-10.4); Nucleated Red Blood Cells % 0 %; Platelet Count 316 10^3/uL (130-400); Red Blood Cell Count 2.74 10^6/uL (4.20-5.40); White Blood Cell Count 11.5 10^3/uL (4.8-10.8)
[2024-05-11 09:08] LABS: PT 16.2 Sec (11.4-14.6)
[2024-05-11 09:20] LABS: ALT (SGPT) 33 U/L (0-35); AST (SGOT) 192 U/L (14-36); Albumin 3.4 g/dl (3.5-5.0); Alkaline Phosphatase 363 U/L (38-126); Blood Urea Nitrogen 3 mg/dl (7-17); Calcium 8.5 mg/dl (8.4-10.2); Carbon Dioxide 26 mmol/L (22-30); Chloride 99 mmol/L (98-107); Estimated Creatinine Clearance 92 ml/min; Glucose 88 mg/dl (70-99); Magnesium 1.4 mg/dl (1.6-2.3); Potassium 3.5 mmol/L (3.5-5.1); Sodium 140 mmol/L (135-145); Total Protein 6.7 g/dl (6.3-8.2); eGFR > 60.00
[2024-05-11 11:03] VITALS: BP 103/73
[2024-05-11 11:15] VITALS: BP 99/72
[2024-05-11 11:20] VITALS: BP 103/76
[2024-05-11 12:00] LABS: Direct Bilirubin 1.2 mg/dl (0.0-0.4); GGTP 1190 U/L (12-43)
[2024-05-11 13:16] LABS: Vitamin B12 727 pg/ml (239-931)
[2024-05-11 13:51] LABS: Folate 6.5 ng/ml (2.76-20)
== END 2024-05-11 11:40 | disposition home or self-care (01) ==
LOC: SDS 06:16
PROVIDERS: Internal Medicine; ATTENDING PHYSICIAN Internal Medicine
DX: Z12.11 Encounter for screening for malignant neoplasm of colon (principal); D12.2 Benign neoplasm of ascending colon; D12.4 Benign neoplasm of descending colon; K63.5 Polyp of colon; K62.1 Rectal polyp; D50.9 Iron deficiency anemia, unspecified; K64.9 Unspecified hemorrhoids; K56.2 Volvulus; K29.70 Gastritis, unspecified, without bleeding; K44.9 Diaphragmatic hernia without obstruction or gangrene; Z86.010 Personal history of colon polyps
CPT/HCPCS: 45385; 43239; 88305; 80053; 82248; 82607; 82728; 82746; 82977; 83735; 85025; 85610; 88342

== ENCOUNTER → 2024-05-30 08:16 | Outpatient (REF) | payer OTHER, SELFPAY | LOC: HWRAD 08:16 | PROVIDERS: ATTENDING PHYSICIAN Internal Medicine; FAMILY PHYSICIAN Physician Assistant Medical | DX: R74.8 Abnormal levels of other serum enzymes (principal) | CPT/HCPCS: 76700 ==

== ENCOUNTER → 2024-06-22 07:35 | Outpatient (REF) | payer OTHER, SELFPAY ==
[2024-06-22 07:50] VITALS: BP 113/77; BP_SYST 103
[2024-06-22 08:45] VITALS: BP 96/72
[2024-06-22 09:17] LABS: Body Fluid Albumin < 1.0 g/dl; Body Fluid Protein < 2.0 g/dl
[2024-06-22 10:32] LABS: Body Fluid Mononuclear 80.2 %; Body Fluid Polymorphonuclear 19.8 %; Body Fluid WBC 96 /CUMM
[2024-06-22 10:42] LABS: Body Fluid Second Tech AMA
== END ==
LOC: RADI 07:35
PROVIDERS: ATTENDING PHYSICIAN Internal Medicine; FAMILY PHYSICIAN Physician Assistant Medical
DX: R18.8 Other ascites (principal)
CPT/HCPCS: 49083; 88305; 82042; 84157; 87015; 87070; 87205; 88112; 88341; 88342; 89051

== ENCOUNTER 2024-06-22 09:14 | Outpatient (RCR) | payer OTHER, SELFPAY ==
[2024-06-22 09:35] VITALS: BP 101/60
[2024-06-22] MEDS: FLEXBUMIN 50 IV (09:35)
[2024-06-22] MEDS: FLEXBUMIN 100 IV (10:27)
[2024-06-22 10:29] VITALS: BP 100/60
== END 2024-06-23 10:48 | disposition home or self-care (01) ==
LOC: OID 09:14
PROVIDERS: ATTENDING PHYSICIAN Internal Medicine; FAMILY PHYSICIAN Physician Assistant Medical
DX: K70.11 Alcoholic hepatitis with ascites (principal); F10.20 Alcohol dependence, uncomplicated; R94.5 Abnormal results of liver function studies; R14.0 Abdominal distension (gaseous); R63.0 Anorexia; Z85.828 Personal history of other malignant neoplasm of skin; Z63.79 Other stressful life events affecting family and household
CPT/HCPCS: 88305; 49083; 82042; 84157; 87015; 87070; 87205; 88112; 89051; 96365; P9047

== ENCOUNTER 2024-07-05 17:18 | Inpatient (IN) | payer OTHER, SELFPAY ==
[2024-07-05] VITALS (11 sets, daily range): BP systolic 92–109; BP diastolic 51–77; BMI 22.6; BMI 22.4
[2024-07-05 14:34] LABS: HCG, Serum Qualitative Screen Negative
[2024-07-05 14:37] LABS: ALT (SGPT) 56 U/L (0-35); AST (SGOT) 292 U/L (14-36); Albumin 3.3 g/dl (3.5-5.0); Alkaline Phosphatase 365 U/L (38-126); Blood Urea Nitrogen 12 mg/dl (7-17); Calcium 8.4 mg/dl (8.4-10.2); Carbon Dioxide 23 mmol/L (22-30); Chloride 74 mmol/L (98-107); Glucose 109 mg/dl (70-99); Lipase 123 U/L (23-300); Potassium 3.6 mmol/L (3.5-5.1); Sodium 114 mmol/L (135-145); Total Bilirubin 13.8 mg/dl (0.2-1.3); Total Protein 7.2 g/dl (6.3-8.2); eGFR > 60.00
--- NOTE | 2024-07-05 15:21 | ED.GENMED ---
History of Present Illness
General
Chief Complaint: Weakness
Source: patient
Exam Limitations: none
Time Seen by Provider: 07/05/24 15:07
Nursing documentation reviewed up to this point in time: agreed with
History of Present Illness
History of Present Illness:
Patient to ED with complaint of weakness, abdominal swelling, BLE edema. States her symptoms started approx 4 weeks ago. Follows with GI here. She had an outpatient abd. US confirming ascites. 2 weeks ago had a paracentesis performed, states 5.3L
fluid was removed. Fluid has since returned. SHe is jaundice. Admits to history of daily vodka consumption - 2 glasses/day. Brought self to ED for eval. States she is not eating or drinking, too weak to ambulate.
Past History
Past History
ED Past Medical History: Cancer (Mouth cancer, ) and Psychiatric (depression)
ED Past Surgical History: Other (Mouth cancer with removal of Lymph nodes, some of the right jaw removed, )
Social History
Tobacco: Former smoker
Alcohol: Occasional
Personal:
Living: with family
Employment: Employed
Family History
Family History: Other
Review of Systems
Review of Systems
Allergies reviewed?: Yes
All Other Systems: ROS reviewed and negative except as documented in HPI and ROS
Constitutional: Reports weight gain (BLe edema, abdominal ascites) and fatigue
EENT: Reports no symptoms
Respiratory: Reports no symptoms
Cardiac: Reports no symptoms
ABD/GI: Reports anorexia and other (ascites)
: Reports no symptoms
Musculoskeletal: Reports edema (BLE)
Skin: Reports other (jaundice)
Neurological: Reports weakness
Psychiatric: Reports depression
Phy Exam
General Physical Exam
General Presentation: moderate distress
General age: appears older than age
General Skin: other (jaundice)
General Habitus: frail
General Mental: other (flat)
Cardiovascular Exam
Cardiovascular Exam: regular rate/rhythm
Pulmonary Exam
Pulmonary Exam: lungs clear and no respiratory distress
Gastrointestinal Exam
Gastrointestinal Exam: normal bowel sounds, non tender, no pulsatile mass and ascites
Neurological Exam
Neurological Exam: oriented x3, CN II-XII intact, no motor deficits, no sensory deficits and speech normal
Musculoskeletal Exam
Musculoskeletal Exam: full ROM, edema (+1BLE) and neuro vasc intact
Skin Exam
Skin Exam: jaundice
Psychiatric Exam
Psychiatric Exam: depressed
Course
Orders/Labs/Results
Orders:
Orders
07/05/24 14:00
Electrocardiogram (*1) Urgent
Reason for Study: Fatigue / Weakness
EKG- Treatment ONCE
Test Result ONCE
07/05/24 14:05
Complete Blood Count/With Diff Urgent
Comprehensive Metabolic Panel Urgent
Ferritin Urgent
Comment: ADD ON
Folate Urgent
Comment: ADD ON
HCG, Serum Qualitative Screen Urgent
Iron Urgent
Comment: ADD ON
Lipase Urgent
Magnesium Urgent
Comment: ADDON
Total Iron Binding Urgent
Comment: ADD ON
Vitamin B12 Urgent
Comment: ADD ON
07/05/24 15:17
US Abdomen Complete/Upper Urgent
Comment:
Reason For Exam: jaundice, elevated Tbili, ascites
07/05/24 15:25
Urine Osmolality Random [Osmolality, Random Urine] Stat
Urine Sodium Urgent
07/05/24 15:30
Add On- LAB Urgent
Tests Added?: ammonia level
07/05/24 15:38
NEPHROLOGY CONSULT Urgent
Consulting Provider: Cesar Mccoy
Was physician already notified: Yes
07/05/24 15:46
Ammonia Routine
Comment: NEEDS TO BE COLLECTED
07/05/24 15:54
Urine Creatinine Routine
07/05/24 16:00
3% Sodium Chloride 500 ml [Sodium Chloride 3%] 500 ml IV ONCE
07/05/24 16:17
Add On- LAB Routine
Tests Added?: magnesium
07/05/24 16:40
Add On- LAB Urgent
Tests Added?: iron ferritiin tibc, b12 folate
Add On- LAB Urgent
Tests Added?: lactic acid, procalcitonin
07/05/24 17:07
Admit/Transfer Patient As Directed
Co-Sign Provider:
Level of Care: Inpatient admission
Assign to:: IMU- Intermediate Care
Physician / Group: prabhakar gabriel
Diagnosis: Hypotension, acute hyponatremia,Etoh abuse
Reason for Hospitalization: Hypotension, acute hyponatremia,Etoh abuse
Expected length of stay greater than two midnights?: Yes
ELOS- Estimated Length of Stay in days: 5
I certify the patient meets the requirements for IP care: Yes
Code Status As Directed
Resuscitation Status: Do not resuscitate
Reached after discussion with pt or family/Healthcare POA: Yes
Based on pt advanced directive or healthcare POA form: Yes
Decision communicated with: Per patient
DNR Bracelet Application ONCE
07/05/24 17:10
PRN Pain Medication Management As Directed
May give lesser potent ordered pain med per pt: Yes
preference::
Protocol:: Medication orders for pain may be administered in a
manner that supports deferring to patient preference
when the pt is:
- Requesting an ordered lesser potent pain medication.
Least to most potent pain medications are defined
as: acetaminophen < NSAID < tramadol < opioids
(morphine, oxycodone, hydromorphone).
- Requesting a lesser dose of the same medication IF
ORDERED.
- Requesting a less intrusive route of administration
if both routes are prescribed by the provider (PO <
IV).
07/05/24 17:39
0.9% Sodium Chloride [Nss (Preservative Free)] See Protocol IV PRN PRN
FOLic ACID [Folvite] 1 mg 0.9% Sodium Chloride 50 ml [Nss] 50 ml IV DAILYPRN
Lorazepam [Ativan] 1 mg IV Q1HPRN PRN
Lorazepam [Ativan] 1 mg PO Q2HPRN PRN
Lorazepam [Ativan] 2 mg IV Q1HPRN PRN
07/05/24 17:39
DIETARY CONSULT Routine
Reason for Consult: Nutrition support, possible refeeding guidelines
Urinalysis Routine
Urine Drug Abuse Screen Routine
Activity As Directed
Activity Level: With Assistance
Intake/ Output As Directed
Frequency: Per unit guidelines
MSAS SCORE As Directed
MSAS Score 0-4: Repeat MSAS every 2 hours until 0-4 for three consecutive assessments, then every 4 hours x 48
hours.
MSAS Score 5-7: For MILD withdrawl symptoms. Repeat MSAS and RASS every 2 hours
MSAS Score 8-11: For MODERATE withdrawal symptoms. Repeat MSAS and RASS every 1 hour. Consider ICU or IMU
level of care.
MSAS Score > 11: For SEVERE withdrawal symptoms. Repeat MSAS and RASS every 1 hour. Notify provider, consider
ICU level of care.
MSAS Additional Instructions: If no improvement or no decrease in score from severe to moderate within 12
hours, consult psychiatry
MSAS Notify Provider: Notify provider if patient requires more than 10 mg of Lorazepam in eight hour period.
Pneumatic Compression Sleeves As Directed
Type: Knee high
Vital Signs As Directed
Frequency: Per unit guidelines
Weight As Directed
Frequency: Daily
Pt Eval And Treat Routine
Activity Level: With Assistance
DX Deep Vein Thrombosis Video Routine
07/05/24 20:00
Magnesium l-Lactate [Mag-Tab Sr] 84 mg PO BID
07/05/24 21:04
Alcohol Urgent
B-Hydroxybutyrate Urgent
Basic Metabolic Panel Routine
GGTP Urgent
PTT Urgent
Phosphorus Urgent
Prothrombin Time Urgent
07/05/24 22:00
Mirtazapine [Remeron] 30 mg PO HS
07/06/24 00:00
Thiamine Injection 200 mg IV Q8
07/06/24 06:00
Cardiovascular Evaluation IN AM
Complete Blood Count/With Diff IN AM
Comprehensive Metabolic Panel IN AM
Levothyroxine [Synthroid] 50 mcg PO DAILY @ 0600
07/06/24 08:00
FOLic ACID [Folvite] 1 mg PO DAILY
07/07/24 06:00
Complete Blood Count/With Diff IN AM
Comprehensive Metabolic Panel IN AM
07/08/24 06:00
Complete Blood Count/With Diff IN AM
Comprehensive Metabolic Panel IN AM
07/08/24 20:00
Thiamine HCl [Vitamin B1] 100 mg PO BID
07/09/24 06:00
Complete Blood Count/With Diff IN AM
Comprehensive Metabolic Panel IN AM
07/10/24 06:00
Complete Blood Count/With Diff IN AM
Comprehensive Metabolic Panel IN AM
Abnormal Lab Results
07/05/24 07/05/24
14:05 15:46
WBC 11.8 H 10^3/uL
(4.8-10.8)
RBC 2.17 L 10^6/uL
(4.20-5.40)
Hgb 8.3 L g/dL
(12.0-16.0)
Hct 21.8 L %
(37.0-47.0)
MCV 100.5 H fL
(81.0-99.0)
MCH 38.2 H pg
(27.0-31.0)
MCHC 38.1 H g/dL
(33.0-37.0)
MPV 10.9 H fL
(7.4-10.4)
Abs Immat Gran (auto) 0.2 H 10^3/uL
(0-0.05)
Absolute Neuts (auto) 9.3 H 10^3/uL
(1.4-6.5)
Absolute Lymphs (auto) 1.1 L 10^3/uL
(1.2-3.4)
Absolute Monos (auto) 1.2 H 10^3/uL
(0.1-0.6)
Immature Gran % 1.5 H %
(0-0.5)
Neutrophils % 78.7 H %
(42.2-75.2)
Lymphocytes % 9.3 L %
(20.5-51.1)
Monocytes % 9.9 H %
(1.7-9.3)
Sodium 114 L* mmol/L
(135-145)
Chloride 74 L mmol/L
(98-107)
Glucose 109 H mg/dl
(70-99)
Magnesium 1.2 L mg/dl
(1.6-2.3)
TIBC 153 L ug/dl
(265-497)
% Saturation 83 H %
(20-50)
Ferritin 1290.0 H ng/ml
(11.1-264.0)
Total Bilirubin 13.8 H mg/dl
(0.2-1.3)
AST 292 H U/L
(14-36)
ALT 56 H U/L
(0-35)
Alkaline Phosphatase 365 H U/L
(38-126)
Ammonia 35 H umol/L
(9-30)
Albumin 3.3 L g/dl
(3.5-5.0)
Vitamin B12 > 1000 H pg/ml
(348-931)
07/05/24 14:05
07/05/24 14:05
Vital Signs
Initial and Last Documented VS:
Initial Vital Signs
Temp Pulse Resp BP Pulse Ox
97.7 F 90 15 109/60 98
07/05/24 13:56 07/05/24 13:56 07/05/24 13:56 07/05/24 13:56 07/05/24 13:56
Last Documented Vital Signs
Temp Pulse Resp BP Pulse Ox
97.7 F 94 33 98/51 92
07/05/24 22:47 07/05/24 22:00 07/05/24 22:00 07/05/24 22:00 07/05/24 22:00
MDM/Problems Addressed
Differential Diagnosis Includes:
Patient to ED with complaint of worsening weakness, abdominal distention, BLE swelling. Symptoms started approx 4 weeks ago. SHe had a paracentesis performed 2 weeks ago for new onset abd. ascities. SHe feels that the fluid is back. She is
jaundice. States this is a new finding. Labs reviewed. LFT elevation, Tbili 13 noted. Sent for US: Advancing hepatomegaly due to worsening fatty infiltrates. CBD normal measurement. No cholecystitis. MIld abd. ascities. Na 114. Dr. Mccoy
consulted and in to see patient. 3%NSS at 30mll/hr initiated. CBC with chronic iron deficiency anemia, worsening. SHe admits to daily alcohol intake, 2glasses vodka. Last drink yesterday. Will admit to hospitalist service.
*Radiology
Radiology exam reviewed: radiology read reviewed
*Pulse Oximetry
Patient hypoxic: no
*Critical Care Note
Total Time (30-74mins, 75-104mins- exclusive of procedures): Not Applicable
Update Note
Update Note:
Na 114. Dr. Mccoy notified. Will initiate 3%NSS at 30ml/hr as per his request.
ED Attending Note
-
Portions of this chart may have been created with voice recognition software.� Occasional wrong word or��sound alike� substitutions may have occurred due to the inherent limitations of voice recognition software.
Discharge Plan
Departure
Patient Disposition: Admit
Date of Disposition: 07/05/24
Time of Disposition: 16:10
Presentation/result/management discussed w/ accepting MD/DO: Hospitalist
Condition: Fair
Covid-19: Not Applicable
Discharge Problem:
Acute hyponatremia, Alcoholic hepatitis, Anemia
Interventions
Interventions:
*Risk Screen - Suicide Last Done: 07/05/24 14:59
*General Assessment Last Done: 07/05/24 14:59
*Neglect/Abuse Screening Last Done: 07/05/24 14:59
ED- Fall Risk Assessment Last Done: 07/05/24 16:34
*ED COVID-19 Vaccine History Last Done: 07/05/24 14:59
*Nursing Disposition Last Done: 07/05/24 18:29
ED- Cardiac Assessment Last Done: 07/05/24 14:59
ED- Neurological Assessment Last Done: 07/05/24 14:59
ED- Pulmonary Assessment Last Done: 07/05/24 14:59
Discharge Date and Time
Discharge Date/Time: 07/05/24 18:29
--- NOTE | 2024-07-05 15:53 | W.CON.NEPH ---
Consultation
-
Date/Time Consultation Requested: 07/05/24 1500
Date/Time Consultation Performed: 07/05/24 1600
Requesting Provider: Dr Zapata
Performing Provider: Dr Mccoy
Reason for Consultation: hyponatremia
Medical History
-
Chief Complaint: Weakness
History of Present Illness:
This is a 58-year-old female who has known alcoholism with cirrhotic liver. She underwent her first large-volume paracentesis 2 weeks ago for 5.3 L. Since then the fluid has already returned. She drinks about 2 glasses of vodka per day by her
report. She has difficult time cutting intake because her is also an alcoholic. In the last several weeks her oral intake has been very poor at most maybe 2 slices of pizza a day. She does drink at least 48 ounces or more of juice not
including the vodka. In the last 2 days her appetite has worsened and she has not eaten anything at all other than the fluids. Because of this she came to the emergency room for evaluation. She was noted to be jaundiced. Her sodium level is 114
she has not had hyponatremia previously by report. She is typically maintained on Lasix and spironolactone for her liver disease and is followed by gastroenterology. She has hypothyroidism controlled on Synthroid therapy.
Past Medical History
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
Alcoholic cirrhosis
Ascites
Hypothyroidism
Reflux
Colonic polyps
Social History
Tobacco: Non-Smoker
Alcohol: Daily
Family History
Family History: Not Pertinent
Allergies / Home Medications
Allergy/AdvReac Type Severity Reaction Status Date / Time
Penicillins Allergy Mild Hives Verified 07/05/24 13:59
seasonal Allergy Unknown Uncoded 07/05/24 13:59
�Medication �Instructions �Recorded �Confirmed �Type
cyanocobalamin (vitamin B-12) 1,000 mcg PO DAILY #30 tabs 11/14/23 07/05/24 Rx
1,000 mcg tablet
folic acid 1 mg tablet 1 mg PO DAILY #30 tabs 11/14/23 07/05/24 Rx
thiamine HCl (vitamin B1) 100 mg 100 mg PO BID #60 tabs 11/14/23 07/05/24 Rx
tablet
magnesium 250 mg tablet 400 mg PO BID 05/11/24 07/05/24 History
mirtazapine 30 mg tablet 30 mg PO HS 05/11/24 07/05/24 History
spironolactone 50 mg tablet 100 mg PO DAILY 06/22/24 07/05/24 History
furosemide 20 mg tablet (Lasix) 20 mg PO DAILYPRN PRN fluid 07/05/24 07/05/24 History
levothyroxine 50 mcg tablet 50 mcg PO DAILY 07/05/24 07/05/24 History
(Synthroid)
Review of Systems
-
Weakness. Decreased appetite. No issues with urination. No diarrhea.
All other systems: Negative unless noted
Physical Exam
Vital Signs
Vital Signs
Temp Pulse Resp BP Pulse Ox
97.7 F 87 18 105/71 98
07/05/24 13:56 07/05/24 15:15 07/05/24 15:15 07/05/24 15:03 07/05/24 15:15
Lab Results
Sodium 114 mmol/L (135-145) L* 07/05/24 14:05
Potassium 3.6 mmol/L (3.5-5.1) 07/05/24 14:05
Chloride 74 mmol/L (98-107) L 07/05/24 14:05
Carbon Dioxide 23 mmol/L (22-30) 07/05/24 14:05
BUN 12 mg/dl (7-17) 07/05/24 14:05
Creatinine 0.7 mg/dL (0.6-1.0) 07/05/24 14:05
eGFR > 60.00 07/05/24 14:05
Glucose 109 mg/dl (70-99) H 07/05/24 14:05
Calcium 8.4 mg/dl (8.4-10.2) 07/05/24 14:05
Albumin 3.3 g/dl (3.5-5.0) L 07/05/24 14:05
Laboratory Tests
05/11/24 07/05/24
08:45 14:05
Hgb 9.4 L
Sodium 140
Chloride 99
Carbon Dioxide 26
Creatinine 0.4 L
Magnesium 1.4 L
Total Bilirubin 2.0 H 13.8 H
AST 292 H
ALT 56 H
Abdominal ultrasound on 07/05/2024
Right kidney 9.4 cm, left kidney 11.3 cm, small volume ascites
IMPRESSION:
1. Hepatomegaly. Increased hepatic echogenicity most consistent with severe fatty infiltration. No suspicious focal hepatic lesion identified sonographically.
2. Small volume of ascites.
3. Diffuse gallbladder wall thickening most likely related to ascites. No abnormal gallbladder dilation. Negative sonographic Gramajo sign.
4. Pancreas not well seen secondary to overlying bowel gas.
Physical Exam
Patient is awake alert oriented and in no distress. Mood and affect were pleasant, insight and judgment were good. Pupils are equal round and reactive to light, extraocular movements are intact, sclera were anicteric. Hearing was normal, ears and
nose are intact. Oropharynx was clear. Neck was supple with trachea midline and no thyromegaly. Heart was regular rate and rhythm without rubs. Lower extremities with 1+ edema. Lungs were clear to auscultation bilaterally and with normal
excursion. Abdomen was soft, nontender, distended, with normal active bowel sounds, and no hepatosplenomegaly. Skin was without rash and with normal turgor.
Data Reviewed
-
Medical Tests (Nuc Med, Echo etc): Image Personally Visualized and interpreted (EKG on 07/05/2024 by my reading shows normal sinus rhythm nonspecific T wave abnormalities) and Report Reviewed by me (Echocardiogram on 11/13/2023 shows ejection
fraction 55%, moderate MR, mild TR)
Labs: Labs Reviewed by me
Old Records: Reviewed
Assessment/Plan
-
Assessment
ESLD
Ascites
Weakness/failure to thrive/poor oral intake
Acute hyponatremia
Jaundice
Hypotension
Hypothyroidism
Plan
3% NaCl
Serial BMP
Check urine osmolality, fractional excretion of sodium
Fluid restriction 40 ounces
Encourage oral intake, increase solute intake
check mag
[2024-07-05 15:56] LABS: % Basophils 0.5 % (0-2); % Eosinophils 0.1 % (0-6); % Immature Granulocytes 1.5 % (0-0.5); % Lymphocytes 9.3 % (20.5-51.1); % Monocytes 9.9 % (1.7-9.3); % Neutrophils 78.7 % (42.2-75.2); Absolute Basophils 0.1 10^3/uL (0-0.2); Absolute Immature Granulocytes 0.2 10^3/uL (0-0.05); Absolute Lymphocytes 1.1 10^3/uL (1.2-3.4); Absolute Monocytes 1.2 10^3/uL (0.1-0.6); Absolute Neutrophils 9.3 10^3/uL (1.4-6.5); Hematocrit 21.8 % (37.0-47.0); Hemoglobin 8.3 g/dL (12.0-16.0); Mean Corp Hgb Conc. 38.1 g/dL (33.0-37.0); Mean Corpuscular Hgb 38.2 pg (27.0-31.0); Mean Corpuscular Volume 100.5 fL (81.0-99.0); Mean Platelet Volume 10.9 fL (7.4-10.4); Nucleated Red Blood Cells % 0.2 %; Platelet Count 164 10^3/uL (130-400); Red Blood Cell Count 2.17 10^6/uL (4.20-5.40); Red Cell Dist. Width 14.1 % (11.5-14.5); White Blood Cell Count 11.8 10^3/uL (4.8-10.8)
[2024-07-05] MEDS: SODIUM CHLORIDE 3% 500 IV (16:12)
--- NOTE | 2024-07-05 16:33 | HPS.HSE ---
Addendum entered and electronically signed by ROXANNE Castano 07/05/24 17:40:
Anxiety
PT reports takes Ativan 1mg hs for anxiety. She does not recall if she took last night
- I checked PDMP and ther is no record of Ativan rx
Addendum entered and electronically signed by Parish Zapata MD 07/05/24 17:36:
This note serves as an addendum to the H&P by ventilation worker XIOMY Maida MIDDLETON
HPI:
58F pw abdominal pain secondary to swelling, weakness and bilateral lower extremity edema over the past 4 weeks.
US Abdomen:
Hepatomegaly increased hepatic echogenicity most consistent with severe fatty infiltration.
No focal hepatic lesion identified Small volume of ascites, diffuse gallbladder wall thickening most likely related to ascites, pancreas not well-seen due to overlying bowel gas
Active issues:
Acute hyponatremia NA 114
- 3% NS
- check urine Osmo, urine sodium, serum Osmo, urine creatinine, ammonia
- BMP q6H
Recurrent abdominal ascites secondary to alcoholic hepatitis
06/22/2024 Paracentesis performed draining 5.3 L of fluid which was negative for malignant cells.
- current US small amount volume of ascites
- cont spironolactone 100 mg daily Lasix 20 mg daily as needed hold if SBP less than 110 bpm
Hyperbilirubinemia-Acute jaundice MELD 27
Acute on chronic transaminitis
T. bili 13.8
AST 292, ALT 56, alk phos 365
- Follow LFTs
- GI consul
DVT Px: SCD
Code: Full
IMU
Original Note:
Family Physician
-
Family Physician: Brielle Boland
Chief Complaint
-
Abdominal pain lower extremity swelling acute jaundice alcohol abuse
History of Present Illness
58-year-old female complaining of abdominal pain secondary to swelling, weakness and bilateral lower extremity edema over the past 4 weeks. She followed with GI had outpatient ultrasound confirming ascites approximately 2 weeks ago with
paracentesis performed draining 5.3 L of fluid which was negative for malignant cells. Showed benign mesothelial cells and macrophages present in background of lymphocytes. She returns today due to reaccumulation of fluid with jaundice and
bilateral +2 lower extremity edema. She states her last drink was 10 PM yesterday 07/04/2024 of vodka 8 ounces. She is typically drinking 1.75 L over a week. She reports she has been drinking that for the last 10 years then prior 750 mL of wine
per night since age 21s.. She reports she is not eating or and she is too weak to ambulate. She denies headache, dizziness, sore throat, cough, shortness breath, chest pain, palpitations, nausea, vomiting, diarrhea, urinary symptoms she had past
medical history of squamous CA of the mouth with removal of lymph nodes and some of the right jaw resection, former smoker, depression, diverticulosis, anxiety, depression, thrombocytopenia due to alcohol abuse.
Medical History
Past Medical History
Past Medical History: Reports Other
Additional Past Medical History:
squamous CA of the mouth with removal of lymph nodes and some of the right jaw resection
former smoker
depression
diverticulosis
anxiety
depression
thrombocytopenia due to alcohol abuse
Past Surgical History: Reports Other
Additional Past Surgical History:
Squamous cell resection from neck
Social History
Tobacco: Former Smoker (10-year 1/2 pack/day H 20-30 quit 27 years ago)
Alcohol: Daily (Vodka daily drinks 1. mL vodka a week x 10 years then 750 mL wine age 41, age 21 to 37 pack of beer with couple shots)
Drug: None
Personal:
Living: With Family ( Camilo)
Employment: Retired
Family History
Family History: Other (Father history of blood clot)
Allergies / Home Medications
Allergies reflects when Allergies were last updated in [facility].
Home Medications with original date entered in [facility]
Allergy/Medication List:
Allergies
Allergy/AdvReac Type Severity Reaction Status Date / Time
Penicillins Allergy Mild Hives Verified 07/05/24 13:59
seasonal Allergy Unknown Uncoded 07/05/24 13:59
Home Medications
cyanocobalamin (vitamin B-12) 1,000 mcg tablet 1,000 mcg PO DAILY #30 tabs 11/14/23
folic acid 1 mg tablet 1 mg PO DAILY #30 tabs 11/14/23
thiamine HCl (vitamin B1) 100 mg tablet 100 mg PO BID #60 tabs 11/14/23
magnesium 250 mg tablet 400 mg PO BID 05/11/24
mirtazapine 30 mg tablet 30 mg PO HS 05/11/24
spironolactone 50 mg tablet 100 mg PO DAILY 06/22/24
furosemide 20 mg tablet (Lasix) 20 mg PO DAILYPRN PRN fluid 07/05/24
levothyroxine 50 mcg tablet (Synthroid) 50 mcg PO DAILY 07/05/24
Review of Systems
-
History Source: Patient
A 12 point ROS was completed and negative except as noted: Yes
Constitutional: Reports Weight Gain; Denies Fever or Chills
EENT: Reports Other (Scleral icterus); Denies Sore Throat or Runny Nose
Respiratory: Denies Cough or Trouble Breathing
Cardiac: Denies Chest Pain, Diaphoresis or Palpitations
Abdomen/GI: Reports Abdominal Pain (Secondary to ascites) and Constipated (Reports only passes pudding-like stool since her colonoscopy in April); Denies Nausea, Vomiting, Diarrhea, Bloody Stools or Black Stools
: Reports Dark Urine; Denies Dysuria, Frequency or Flank Pain
Musculoskeletal: Reports Edema (+2 bilateral lower extremities); Denies Joint Pain
Skin: Reports Other (Scabbed circular area size of quarter to mid upper chest); Denies Itching or Rash
Neurological: Denies Dizzy or Headache
Endocrine: Reports No Symptoms
Hematologic/Lymphatic: Reports No Symptoms
Psych: Reports Calm
Physical Exam
Vital Signs
Vital Signs
Temp Pulse Resp BP Pulse Ox
97.7 F 87 18 105/71 98
07/05/24 13:56 07/05/24 15:15 07/05/24 15:15 07/05/24 15:03 07/05/24 15:15
Physical Exam
General: Comfortable, Conversant and Other (Acute jaundice face, upper chest); No Pain, Fever or Chills
HEENT: NormoCephalic, Anicteric, PERRLA, No Ptosis and Other (Scleral icterus)
Respiratory: Clear; No Wheezes, Rales or Rhonchi
Cardiac: S1/S2, Regular Rhythm and Peripheral Edema (+2 bilateral lower legs); No Murmur, Rub or Gallop
Breast: Deferred by me
GI: Soft, Normal Bowel Sounds and Distended (Diffuse tympany)
Genito-urinary: Deferred by me
Musculoskeletal: No Clubbing, No Cyanosis, Edema, Left Lower Extremity (+2) and Edema, Right Lower Extremity (+2); No Edema, Left Upper Extremity or Edema, Right Upper Extremity
Skin: Warm, Dry and Jaundice (Face, eyes, upper extremity); No Rash
Neuro: AO x 3, No Motor Deficits, Nonfocal/grossly intact, Cranial Nerves Intact, No Sensory Deficits and Other (Patient reports chronic gait dysfunction due to chronic neuropathy in feet); No Slurred Speech, Facial Droop, Tremors or Sedated
Psych: Calm
Laboratory Results
-
07/05/24 14:05
Laboratory Results
Total Bilirubin 13.8 mg/dl (0.2-1.3) H 07/05/24 14:05
AST 292 U/L (14-36) H 07/05/24 14:05
ALT 56 U/L (0-35) H 07/05/24 14:05
Alkaline Phosphatase 365 U/L (38-126) H 07/05/24 14:05
Lipase 123 U/L (23-300) 07/05/24 14:05
Impression/Plan
-
Impression/plan:
Admit to telemetry
#Acute hyponatremia
NA 114
-Consult nephro
-Check urine Osmo, urine sodium, serum Osmo, urine creatinine, ammonia
-3% sodium chloride 30 mL/h
-BMP q6h
#Recurrent abdominal ascites secondary to alcoholic hepatitis
06/22/2024 Paracentesis performed draining 5.3 L of fluid which was negative for malignant cells.
-Current ultrasound only showing small amount volume of ascites
-HOLD spironolactone 100 mg daily Lasix 20 mg daily as needed due to hypotension
-Fluid restrict 40 ounces
Ultrasound abdomen: Hepatomegaly increased hepatic echogenicity most consistent with severe fatty infiltration. No focal hepatic lesion identified
Small volume of ascites
Diffuse gallbladder wall thickening most likely related to ascites
Pancreas not well-seen due to overlying bowel gas
#Hyperbilirubinemia-Acute jaundice
#Acute on chronic transaminitis
T. bili 13.8
AST 292, ALT 56, alk phos 365
-Follow LFTs
#Acute hypotension
BP 93/64
-Hold current spironolactone 100 mg daily, Lasix 20 mg as needed
Echocardiogram on 11/13/2023 shows ejection fraction 55%, moderate MR, mild TR
# Acute alcohol abuse
her last drink was 10 PM yesterday 07/04/2024 of vodka 8 ounces. She is typically drinking 1.75 L over a week
MSAs screen with protocol
IV thiamine, IV folate
-Check magnesium level, ammonia
-Continue vitamin B1 100 mg twice daily,B12 1000 mcg p.o. daily
-Pending INR was 1.3 on 05/11 MELD score 27 using INR from April
#Acute on chronic anemia
#Hx iron deficiency anemia April 2024
Hgb 8.3 prior 9.4 on 05/11/2024
-Will check B12, folate, iron studies
-Type and screen, obtain blood consent and scanned into computer hold on current blood due to no bleeding
Endoscopy 05/11/2024: Gastritis no significant findings
Anemia, 2 cm hiatal hernia, iron deficiency anemia
Colonoscopy 05/11/2024: Hemorrhoids perianal exam. Diverticula found in the left colon. 12 mm polypectomy in the proximal ascending colon which was removed with cold snare 2 polyps found in the sigmoid
and descending colon small in size and resected, multiple hyperplastic rectal polyps
#Hypomagnesemia Hx
-Check mag level, potassium level is 3.6
-Continue magnesium 400 mg twice daily
#Chronic thrombocytopenia in setting of alcohol abuse
-Platelets stable 164
#Hypothyroidism
-Check TSH with free T4 reflex
-Continue levothyroxine 50 mcg p.o. daily
#Former smoker age [age]/2 pack/day stopped 27 years ago
#Squamous CA of the mouth with removal of lymph nodes and some of the right jaw resection
#Depression
-No current medications
#Diverticulosis
# History of polypectomy proximal ascending colon, 2 polyps sigmoid descending colon 05/11/2024
#Anxiety/Depression
-Continue mirtazapine 30 mg at bedtime
#Chronic neuropathy in feet causing chronic gait dysfunction likely due to chronic alcohol abuse
Check B12 level
PT/OT consult
DVT prophylaxis
SCDs
DNR per patient states her Camilo is her emergency contact
[2024-07-05 17:25] LABS: Magnesium 1.2 mg/dl (1.6-2.3)
[2024-07-05 17:33] LABS: Ammonia 35 umol/L (9-30)
[2024-07-05 17:47] LABS: Iron 128 ug/dl (37-170)
[2024-07-05 17:53] LABS: Percent Saturation 83 % (20-50); Total Iron Binding Capacity 153 ug/dl (265-497)
--- NOTE | 2024-07-05 19:25 | PTCARENOTE ---
Patient received into room 3346 from the ED approx 1820. Patient is aaox3, pleasant. SR on monitor. BP stable. +2 LE edema, weak pulses. Lungs clear, on RA. Abdomen distended, round and firm. She reports she is incontinent of bowel, last BM 4 hours
ago and was 'mush.' Pt reports being continent of bladder. She ate half a sandwich for dinner in the ED. Pt reports nausea. Pt had a dime sized scab on chest and small scab on LLQ. Pt oriented to room and call hunt. Pt asked for cup of ice chips.
Report given to nightshift RN.
[2024-07-05 19:47] LABS: Folate 9.4 ng/ml (2.76-20); Vitamin B12 > 1000 pg/ml (239-931)
[2024-07-05] MEDS: MAG-TAB SR 84 MG PO (20:46)
[2024-07-05 21:27] LABS: INR 1.59; PT 19.2 Sec (11.4-14.6)
[2024-07-05 21:28] LABS: APTT 42.3 Sec (23.4-35.0)
[2024-07-05 21:29] LABS: Lactic Acid 3.2 mmol/L (0.7-2.0)
[2024-07-05 21:35] LABS: Alcohol 26 mg/dl; GGTP 610 U/L (12-43); Phosphorus 3.3 mg/dl (2.5-4.5)
[2024-07-05 21:40] LABS: Blood Urea Nitrogen 12 mg/dl (7-17); Carbon Dioxide 27 mmol/L (22-30); Chloride 77 mmol/L (98-107); Estimated Creatinine Clearance 83 ml/min; Glucose 107 mg/dl (70-99); Sodium 117 mmol/L (135-145); eGFR > 60.00
[2024-07-05 21:41] LABS: B-Hydroxybutyrate 0.31 mmol/L (0.02-0.27)
[2024-07-05 21:44] LABS: Procalcitonin 0.44 ng/ml (0.0-0.25)
--- NOTE | 2024-07-05 21:46 | W.PN.UPDATE ---
Update Note
Progress Note Update
lactic acid 3.2, WBC 11.8 that trending up this am to 12.4. abnormal procalcitonin 0.44. Patient afebrile
Around midnight, patient is hypoxic,SPO2 87% on RA, patient was placed on 2 L of O2 and will order chest x-ray.
Covid test orderd and the result (Neg).
blood cultures, urine culture ordered and the result is pending.
[2024-07-05] MEDS: COMPAZINE 5 MG IV (21:54)
[2024-07-05] MEDS: REMERON PO (22:32)
[2024-07-05] MEDS: KCL 40 MEQ PO (22:40)
[2024-07-05] MEDS: THIAMINE INJECTION 200 MG IV (23:08)
--- NOTE | 2024-07-05 23:55 | PTCARENOTE ---
Pt oriented, presents with flat affect. Rec'd pt with 3% saline running at 30msl/hr. This RN notified thin film technician of critical Na result of 117 via TT. Orders placed to reduce rate to 15mls/hr. Gtt adjusted per MD order. Pt able to take oral pills
whole with water without complication. Pt c/o nausea. ROXANNE Beckford notified, OTD compazine given per OCT. Call hunt within reach.
[2024-07-06] VITALS (12 sets, daily range): BP systolic 88–108; BP diastolic 58–76; PULSE 97; O2SAT 94; BMI 22.1
--- NOTE | 2024-07-06 00:49 | PTCARENOTE ---
2L O2 placed for SaO2 drop to 87 while sleeping.
[2024-07-06 03:51] LABS: Urine Albumin Trace (Neg - Trace); Urine Bilirubin 2+ (Negative); Urine Character Clear (Clear); Urine Color Amber; Urine Glucose Negative (Negative); Urine Ketone Negative (Negative); Urine Leukocyte Trace (Negative); Urine Nitrite Positive (Negative); Urine Occult Blood Negative (Negative); Urine Specific Gravity 1.015 (<1.030); Urine Urobilinogen 4+ (Neg - 1+)
[2024-07-06 03:58] LABS: Osmolality Urine 241 mOsm/kg (300-900)
[2024-07-06 04:02] LABS: COVID-19 Antigen Negative (Negative)
[2024-07-06 04:08] LABS: % Basophils 0.4 % (0-2); % Eosinophils 0.4 % (0-6); % Immature Granulocytes 0.8 % (0-0.5); % Lymphocytes 12.6 % (20.5-51.1); % Monocytes 9.7 % (1.7-9.3); % Neutrophils 76.1 % (42.2-75.2); Absolute Basophils 0.1 10^3/uL (0-0.2); Absolute Eosinophils 0.1 10^3/uL (0-0.7); Absolute Immature Granulocytes 0.1 10^3/uL (0-0.05); Absolute Lymphocytes 1.6 10^3/uL (1.2-3.4); Absolute Monocytes 1.2 10^3/uL (0.1-0.6); Absolute Neutrophils 9.4 10^3/uL (1.4-6.5); Hematocrit 20.5 % (37.0-47.0); Hemoglobin 7.6 g/dL (12.0-16.0); Lactic Acid 1.6 mmol/L (0.7-2.0); Mean Corp Hgb Conc. 37.1 g/dL (33.0-37.0); Mean Corpuscular Hgb 38.6 pg (27.0-31.0); Mean Corpuscular Volume 104.1 fL (81.0-99.0); Mean Platelet Volume 10.7 fL (7.4-10.4); Nucleated Red Blood Cells % 0 %; Platelet Count 145 10^3/uL (130-400); Red Blood Cell Count 1.97 10^6/uL (4.20-5.40); Red Cell Dist. Width 13.5 % (11.5-14.5); White Blood Cell Count 12.4 10^3/uL (4.8-10.8)
[2024-07-06 04:09] LABS: Urine Sodium < 5 mmol/L (30-90)
[2024-07-06 04:13] LABS: ALT (SGPT) 49 U/L (0-35); AST (SGOT) 273 U/L (14-36); Albumin 2.9 g/dl (3.5-5.0); Alkaline Phosphatase 369 U/L (38-126); Blood Urea Nitrogen 12 mg/dl (7-17); Calcium 8.1 mg/dl (8.4-10.2); Carbon Dioxide 27 mmol/L (22-30); Chloride 79 mmol/L (98-107); Estimated Creatinine Clearance 83 ml/min; Glucose 104 mg/dl (70-99); HDL Cholesterol 21 mg/dl; LDL Cholesterol, Calculated 219 mg/dl; Potassium 3.8 mmol/L (3.5-5.1); Sodium 118 mmol/L (135-145); Total Bilirubin 13.1 mg/dl (0.2-1.3); Total Cholesterol 271 mg/dl (50-199); Total Protein 6.8 g/dl (6.3-8.2); Triglyceride 157 mg/dl (10-149); Very Low Density Lipoprotein 31 mg/dl (0-30); eGFR > 60.00
[2024-07-06 04:25] LABS: Amphetamines Negative (Negative); Barbiturates Negative (Negative); Benzodiazepines Positive (Negative); Buprenorphine Negative (Negative); Cocaine Negative (Negative); Marijuana Negative (Negative); Methadone Negative (Negative); Methamphetamines Negative (Negative); Opiates Negative (Negative); Phencyclidine Negative (Negative); Tricyclic Antidepressants Negative (Negative)
[2024-07-06 04:34] LABS: Fentanyl, Urine Negative (Negative)
[2024-07-06] MEDS: SYNTHROID 50 MCG PO (05:08)
--- NOTE | 2024-07-06 05:19 | PTCARENOTE ---
Critical Hct of 20.5 and critical Na of 118 reported to ROXANNE Beckford per protocol.
--- NOTE | 2024-07-06 06:39 | CON.GI ---
Addendum entered and electronically signed by Jina Acuna DO 07/06/24 13:24:
The patient was seen and examined by me independently in collaboration with the nurse practitioner.
Past medical history/social history/medications/allergies/family history reviewed.
Lab data and imaging data reviewed.
Gema Ibarra is a 58-year-old female with past medical history of alcoholic liver disease complicated by clinically significant portal hypertension with recent large-volume paracentesis, ascitic fluid profile consistent with portal hypertension,
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 Her LFTs were significantly higher than her most recent set
of labs, Tbili 13.8 (previously 2 in april), AST 273, ALT 49, Alk phos 369, GGT 610. She is actively drinking, last drink was night of presentation. Difficult social siutation as her is an alcoholic, has a difficult time maintaining her
sobriety. I have referred her to social work at recent visits to discuss rehab options-- at her most recent office visit she was amenable to this.
Nutrition has been an ongoing issue- due to her oral surgery, struggles to eat due to alterations in her taste buds. I have also referred her to nutrition, however, she has not followed up.
#Acute on Chronic Alcohol Hepatitis-- she does not have cirrhosis but is certainly headed in that direction; she has clinically significant portal HTN --> her alc hep is ongoing for many months
#Acute Hyponatremia
#Recurrent Ascites
#Malnutrition
#Failure to thrive
#Anemia
#Alcohol abuse
-Calculated DF = 42.3; technically, there is a potential* benefit of steroids, however, complete abstinence from alcohol is crucial to prevent disease progression and enhance effectiveness of treatment
--> steroids can potentially cause hyopnatremia
--> recommend monitoring for another day and focus on her acute hyponatremia and nutrition, will reevaluate tomorrow for initiation of steroids
-3% NS, fluid restriction, per nephrology
-Hold diuretics
-check abdominal dopplers
-Nutrition consult to discuss long-term nutrition
Original Note:
Consultation
-
Date/Time Consultation Requested: 07/05/24 1730
Date/Time Consultation Performed: 07/06/24 0630
Requesting Provider: ROXANNE Castano
Performing Provider: ROXANNE Bower, Carolyn Acuna DO
Reason for Consultation: Etoh liver disease
Medical History
Chief Complaint / HPI
Chief Complaint: weakness, abdominal distention
History of Present Illness:
Pt is a 58yo with hx squamous cell of mouth s/p resection at [facility], ETOH abuse, tobacco abuse, colon polyps with OP follow in GI office as recently as 2 weeks ago with concern for ETOH issues. She was noted with anemia with hbg 9 range and
elevated LFT's with bili 3.6 up from 2 in April and now bili 13.8 on admission with severe hyponatremia with Na 114 and rise in INR to 1.59. She admits to slow wean of ETOH but still drinking 2 glasses of vodka daily. She also admits to
ongoing issue with abdominal distention. She completed para 06/22 for 5350 neg SBP. No hx evaluation with hepatology in past.
At this time patient admits to severe weakness. She complaints of continued issue with LE swelling and abdominal swelling with some upper and lower abdominal pain. She does have some chronic loose stools. She denies dysphagia, GERD, nausea,
vomiting, constipation and occasional rectal bleeding with hemorrhoids. She had recent scopes completed in March with EGD noted HH, mild gastric erythema, colon with looping to cecum and difficulty to see IC valve, hemorrhoid, diverticulosis,
adenomatous and HP polyps.
Past Medical History
Past Medical History: Cancer (squamous cell CA of mouth), Psychiatric (depression) and Other (ETOH and tobacco abuse, colon polyps, diverticulosis, hemorrhoids, thrombocytopenia )
Past Surgical History: Other (CA mouth removal with lymph node and jaw resection)
Social History
Tobacco: Former Smoker (quit 2 years ago)
Alcohol: Chronic Alcoholic (recent 2 vodka drinks daily )
Drug: None
Personal:
Living: With Family
Employment: Employed
Family History
Family History: Other (mother, father and brother with polyps no family hx liver issues )
Allergies / Home Medications
Allergy/AdvReac Type Severity Reaction Status Date / Time
Penicillins Allergy Mild Hives Verified 07/05/24 13:59
seasonal Allergy Unknown Uncoded 07/05/24 13:59
�Medication �Instructions �Recorded
cyanocobalamin (vitamin B-12) 1,000 mcg PO DAILY #30 tabs 11/14/23
1,000 mcg tablet
folic acid 1 mg tablet 1 mg PO DAILY #30 tabs 11/14/23
thiamine HCl (vitamin B1) 100 mg 100 mg PO BID #60 tabs 11/14/23
tablet
magnesium 250 mg tablet 400 mg PO BID 05/11/24
mirtazapine 30 mg tablet 30 mg PO HS 05/11/24
spironolactone 50 mg tablet 100 mg PO DAILY 06/22/24
furosemide 20 mg tablet (Lasix) 20 mg PO DAILYPRN PRN fluid 07/05/24
levothyroxine 50 mcg tablet 50 mcg PO DAILY 07/05/24
(Synthroid)
lorazepam 1 mg tablet (Ativan) 1 mg PO HS 07/05/24
Review of Systems
-
History Source: Patient and Family
Constitutional: Reports Other (wt up and down with fluid then recent para)
EENT: Reports No Symptoms
Respiratory: Reports No Symptoms
Cardiac: Reports No Symptoms
Abdomen/GI: Reports Abdominal Pain, Nausea, Diarrhea and Bloody Stools (occasional with hemorrhoids )
: Reports No Symptoms
Musculoskeletal: Reports Edema
Skin: Reports No Symptoms
Neurological: Reports Weakness and Other (decreased focus )
Endocrine: Reports No Symptoms
Hematologic/Lymphatic: Reports No Symptoms
Vital Signs
Temp Pulse Resp BP Pulse Ox
98.2 F 101 25 96/58 93
07/06/24 05:19 07/06/24 06:00 07/06/24 06:00 07/06/24 06:00 07/06/24 05:21
Physical Exam
Exam
General: Other (noted muscle wasting )
HEENT: Other (jaundice )
Respiratory: Clear
Cardiac: Regular Rhythm and Peripheral Edema
GI: Soft, Tender (diffuse ) and Distended
Musculoskeletal: No Clubbing and No Cyanosis
Skin: Warm and Dry
Neuro: Awake, Alert, AO x 3 and Other (found sleeping in dark room under covers but cooperative for exam)
Psych: Calm
Results
WBC 12.4 10^3/uL (4.8-10.8) H 07/06/24 03:28
Hgb 7.6 g/dL (12.0-16.0) L 07/06/24 03:28
Hct 20.5 % (37.0-47.0) L* 07/06/24 03:28
MCV 104.1 fL (81.0-99.0) H 07/06/24 03:28
Plt Count 145 10^3/uL (130-400) 07/06/24 03:28
Absolute Neuts (auto) 9.4 10^3/uL (1.4-6.5) H 07/06/24 03:28
PT 19.2 Sec (11.4-14.6) H 07/05/24 21:04
INR 1.59 07/05/24 21:04
APTT 42.3 Sec (23.4-35.0) H 07/05/24 21:04
Sodium 118 mmol/L (135-145) L* 07/06/24 03:28
Potassium 3.8 mmol/L (3.5-5.1) D 07/06/24 03:28
Chloride 79 mmol/L (98-107) L 07/06/24 03:28
Carbon Dioxide 27 mmol/L (22-30) 07/06/24 03:28
BUN 12 mg/dl (7-17) 07/06/24 03:28
Creatinine 0.7 mg/dL (0.6-1.0) 07/06/24 03:28
Calcium 8.1 mg/dl (8.4-10.2) L 07/06/24 03:28
Total Bilirubin 13.1 mg/dl (0.2-1.3) H 07/06/24 03:28
AST 273 U/L (14-36) H 07/06/24 03:28
ALT 49 U/L (0-35) H 07/06/24 03:28
Alkaline Phosphatase 369 U/L (38-126) H 07/06/24 03:28
Lipase 123 U/L (23-300) 07/05/24 14:05
Diagnostic Image Results:
07/05/24 US abdomen
1. Hepatomegaly. Increased hepatic echogenicity most consistent with severe fatty infiltration. No suspicious focal hepatic lesion identified sonographically.
2. Small volume of ascites.
3. Diffuse gallbladder wall thickening most likely related to ascites. No abnormal gallbladder dilation. Negative sonographic Gramajo sign.
4. Pancreas not well seen secondary to overlying bowel gas.
Abdominal ultrasound 05/30/2024: Liver is increased in echotexture. Stable simple left hepatic lobe cyst measuring 1.6 cm. The portal and hepatic vessels appear grossly patent. Diffuse gallbladder wall thickening measuring up to 7 mm. No gallstones,
pericholecystic fluid or sonographic Gramajo sign. Small to moderate volume diffuse abdominal ascites.
Abdominal US (2021): Moderate generalized increased echotexture and diminished sound through transmission, consistent with fatty infiltration. There is a 1.6 cm cyst in the left lobe.
ECHO (11/13/23): LVEF 55-60%. Moderate MR. Mild TR. PA 21 mmHg.�
CT Chest 10/2023: No evidence of pulmonary embolism
-EGD 05/11/24: EGD for iron deficiency anemia, not on PPI. 2 cm hiatal hernia otherwise normal esophagus. Mild gastric erythema. Gastric biopsies negative for H. pylori, small bowel normal and negative for celiac. Avoid alcohol. Start once daily acid
medication with a gastritis. Follow-up with Dr. Acuna
-Colonoscopy 05/11/24: Good prep with significant looping to the cecum. External hemorrhoids, left-sided diverticulosis, 12 mm proximal ascending adenoma, small descending adenoma, sigmoid hyperplastic otherwise normal. Difficult to see behind the IC
valve due to looping. Repeat colonoscopy in 3 years.
--Colonoscopy 11/06/2017:Hemorrhoids on perianal exam. 2mm hyperplastic polyp in the rectum. Sigmoid diverticulosis.�
--Colonoscopy 06/12/2014: 1x TA in transverse colon. 2x Hyperplastic polyps in the descending colon. 1x hyperplastic polyp in the sigmoid colon.�
--Colonoscopy 03/27/2011: Hyperplastic polyp in the descending colon. 2x hyperplastic polyps in the sigmoid colon. 2x TAs in the rectosigmoid colon.
Assessment / Plan
-
Pt is a 58yo with hx squamous cell of mouth s/p resection at [facility], ETOH abuse, tobacco abuse, colon polyps with OP follow in GI office as recently as 2 weeks ago with concern for ETOH issues. She was noted with anemia with hbg 9 range and
elevated LFT's with bili 3.6 up from 2 in April and now bili 13.8 on admission with severe hyponatremia with Na 114 and rise in INR to 1.59. She admits to slow wean of ETOH but still drinking 2 glasses of vodka daily. She also admits to
ongoing issue with abdominal distention. She completed para 06/22 for 5350 neg SBP. No hx evaluation with hepatology in past.
-ETOH hepatitis with decompensation
-marked rise in LFT's
-leukocytosis
-anemia
-coagulopathy
-ascites
-severe hyponatremia
-weakness/failure to thrive
-continued ETOH abuse
-diarrhea
-hypotension
-hypoalbuminemia
-hx squamous cell mouth with resection
PLAN:
concern for ETOH hepatitis unclear if any underlying cirrhosis
MELD 3.0 27, DF 42.3 based on control of [address] Acuna for steroids
if not responding to steroid will need hepatology evaluation ( no prior evaluation in past)
US with Hepatomegaly, severe fatty liver, no lesion, small volume ascites, GB thickening with ascites
reviewed with renal continue to correct NA 118 today
t/c para when Na better corrected if enough fluid to tap ( reported as small amount per US)
diuretic management per renal
trend daily MELD labs
regular diet with fluid restriction, add supplement BID -- stressed need for good nutrition
trend hbg with anemia s/p recent EGD/colonoscopy completed
monitor for loose stools
counseled on ETOH abstinence
case management consider for resources
consider psych eval-- for depression/ETOH issues - pt states she does not feel very focused today to review with them
-
-
Thank you for consultation and allowing me to participate in the patient's care. Please call the injection molding supervisor GI physician during the after hours with any questions or concerns.
[2024-07-06 07:07] LABS: Urine Squamous Cell >30 /LPF (Few)
[2024-07-06 07:13] LABS: Urine Amorphous Seen; Urine Bacteria Many (Negative); Urine Urothelial Cell >30 /LPF (FEW)
[2024-07-06 07:15] LABS: Urine Red Blood Cell 0-2 /HPF (0-2); Urine White Cell 16-20 /HPF (0-5); Urine Yeast Moderate (Negative)
--- NOTE | 2024-07-06 08:15 | W.PN.NEPH.PH ---
Today's Communication / Plan
-
Maintain 3% infusion at 15 cc/h
Recheck electrolytes 1400
Assessment/Plan
-
Assessment
Cirrhosis
Suspected ETOH hepatitis
Ascites
Weakness/failure to thrive/poor oral intake
Acute hyponatremia
Jaundice
Hypotension
Hypothyroidism
Plan
3% NaCl will continue as sodium only up to 118 from 114
Serial BMP, recheck lytes at 2pm
Checkrf urine osmolality, fractional excretion of sodium
Fluid restriction 40 ounces
Encourage oral intake, increase solute intake
-
-
Date of Service: July 06, 2024
CC / HPI / ROS
-
Chief Complaint:
Hyponatremia
History of Present Illness:
serum sodium up from 114 to 118 on 3% saline 15cc/hr
hemodynamically unstable (sbp ~89)
Review of Systems:
non oliguric
no fevers
on O2
ascites
Labs
-
Labs:
WBC 12.4 10^3/uL (4.8-10.8) H 07/06/24 03:28
RBC 1.97 10^6/uL (4.20-5.40) L 07/06/24 03:28
Hgb 7.6 g/dL (12.0-16.0) L 07/06/24 03:28
Hct 20.5 % (37.0-47.0) L* 07/06/24 03:28
Plt Count 145 10^3/uL (130-400) 07/06/24 03:28
Sodium 118 mmol/L (135-145) L* 07/06/24 03:28
Potassium 3.8 mmol/L (3.5-5.1) D 07/06/24 03:28
Chloride 79 mmol/L (98-107) L 07/06/24 03:28
Carbon Dioxide 27 mmol/L (22-30) 07/06/24 03:28
BUN 12 mg/dl (7-17) 07/06/24 03:28
Creatinine 0.7 mg/dL (0.6-1.0) 07/06/24 03:28
eGFR > 60.00 07/06/24 03:28
Glucose 104 mg/dl (70-99) H 07/06/24 03:28
Calcium 8.1 mg/dl (8.4-10.2) L 07/06/24 03:28
Phosphorus 3.3 mg/dl (2.5-4.5) 07/05/24 21:04
Albumin 2.9 g/dl (3.5-5.0) L 07/06/24 03:28
Physical Exam
-
Vital Signs:
Vital Signs
Temp Pulse Resp BP Pulse Ox
98.6 F 90 16 89/60 95
07/06/24 07:48 07/06/24 08:00 07/06/24 08:00 07/06/24 08:00 07/06/24 08:00
Cardiovascular:: Regular rate and rhythm
Respiratory:: Bilateral: CTA
Lung Excursion:: Normal
Abdomen:: Distended
Bowel Sounds:: Decreased
Extremity Edema:: None: Bilateral:
Joyce Catheter: No
[2024-07-06] MEDS: THIAMINE INJECTION 200 MG IV ×3 (08:25→23:46)
[2024-07-06] MEDS: MAG-TAB SR 84 MG PO ×2 (08:25→20:19)
[2024-07-06] MEDS: FOLVITE 1 MG PO (08:25)
--- NOTE | 2024-07-06 09:35 | W.PN.HOSP.TC ---
Addendum entered and electronically signed by James Epps MD 07/06/24 15:35:
Seen and examined by me independently in collaboration with the pesticide use medical coordinator Arthur.
Lab data and imaging data reviewed.
Addendum as below :
Admitted with generalized weakness suspect multifactorial including severe hyponatremia. Corrected sodium with IV hypertonic solution and follow for clinical improvements. Renal following.
Patient with ongoing alcoholism with a new diagnosis of decompensated liver disease within the last month. She needed paracentesis and is experiencing lower extremity edema lately. She is agreeable to see a psychiatrist on consider alcohol rehab
programs.
Significant elevation in bilirubin and return of ascites noted. Check ultrasound of the liver with the radiologist to see if the hepatic and portal veins are patent. GI to see. Will arrange for ascites tap once Na is better.
Original Note:
Today's Communication/Plan
-
copy worker/rehab consult
Continue M SAS protocol
Continue 3% sodium
Right upper quadrant ultrasound Doppler
Symptomatic management
Assessment / Plan
Assessment / Plan
Assessment:
58-year-old female past ministry of alcohol use disorder, recurrent ascites, alcoholic hepatitis, jaundice presents with acute symptomatic hyponatremia.
Plan:
#Acute hyponatremia
Sodium on admission 114
Sodium today 118
Continue 3% saline
Etiology likely secondary to hepatorenal syndrome and volume overload
Urine sodium less than 5, osmolarity also low
Nephrology following
Fluid restriction
Mentation intact, patient is not confused or altered
#Abdominal ascites
Patient has a history of recurrent abdominal ascites
Ultrasound abdomen demonstrated small volume ascites
Patient currently has fluid wave present on exam
GI following
GI considering taking for paracentesis once sodium has improved
Will check right upper quadrant ultrasound Doppler to assess portal and hepatic veins for thrombosis
#Suspected alcohol hepatitis
AST ALT and alk phos all elevated
T bilirubin 13, GGT elevated 610
Recent admission demonstrated T bilirubin of approximately 2, likely patient has acute injury of liver due to alcohol
Ultrasound abdomen demonstrated hepatomegaly, no suspicious focal hepatic lesions
#Hyperbilirubinemia
#Acute jaundice
Likely acute on chronic transaminitis
T. bili 13.8 on admission
AST, ALT and alk phos also all elevated
GI consulted and following
Daily CMP
#Acute on chronic anemia
Likely anemia of chronic disease, iron labs demonstrated extremely high ferritin and high iron saturation
Will check stools for heme positivity
#Hypomagnesemia
Magnesium returned low
Status post magnesium infusion
Will recheck mag in a.m.
#Hypokalemia
Resolved
Status post potassium replacement
Monitor with daily CMP
CODE STATUS: DNR
Diet: Regular with fluid restriction
DVT prophylaxis: SCDs
Anticipated Discharge: > 48 hours
Subjective/Interval History
-
Date of Service: July 06, 2024
Patient reports patient reports nausea
Objective Data
-
Labs:
Laboratory Results
07/05/24 07/06/24 07/06/24
21:04 03:28 14:00
WBC 12.4 H
Hgb 7.6 L
Hct 20.5 L*
Plt Count 145
Sodium 117 L* 118 L* Pending
Potassium 3.0 L 3.8 D Pending
Chloride 77 L 79 L Pending
Carbon Dioxide 27 27 Pending
BUN 12 12
Creatinine 0.7 0.7
Glucose 107 H 104 H
Calcium 8.0 L 8.1 L
Total Bilirubin 13.1 H
AST 273 H
ALT 49 H
Alkaline Phosphatase 369 H
07/06/24
20:00
WBC
Hgb
Hct
Plt Count
Sodium Pending
Potassium Pending
Chloride Pending
Carbon Dioxide Pending
BUN
Creatinine
Glucose
Calcium
Total Bilirubin
AST
ALT
Alkaline Phosphatase
Vital Signs:
Vital Signs
Temp Pulse Resp BP Pulse Ox
98.6 F 90 16 89/60 95
07/06/24 07:48 07/06/24 08:00 07/06/24 08:00 07/06/24 08:00 07/06/24 08:00
I&O
07/05/24 07/06/24 07/07/24
06:59 06:59 06:59
Intake Total 120 / 120
Output Total 200 / 200
Balance -80 / -80
Review of Systems
-
Constitutional: Reports Sleep Disturbance and Other (General malaise)
Respiratory: Reports No Symptoms
Cardiac: Reports No Symptoms
Abdomen/GI: Reports Nausea and Other (Ascites); Denies Vomiting
Genitourinary: Reports No Symptoms
Physical Exam
-
General: Appears in Distress, Conversant and Appears Chronically Ill
Respiratory: Clear to Auscultation
Cardiac: Regular Rhythm and S1/S2
GI: Nontender, Distended and Other (Large abdominal ascites and fluid wave present on exam)
Skin: Jaundice
Neuro: Awake, Alert, Oriented and AO x 3
Psych: Calm and Intact Judgement/Insight
Data Reviewed
-
Diagnostic Radiology: Report Reviewed by me and Discussed with Physician
Ultrasound: Report Reviewed by me and Discussed with Physician
Labs: Labs Reviewed by me and Discussed with Physician
--- NOTE | 2024-07-06 11:39 | CM ---
Addendum entered by Sayra Fernandez RN 07/06/24 15:39:
Met with AYLIN Carpenter; he met with the patient who is interested in an Outpatient Etoh program. He provided resources for outpatient follow up.
In addition Jayden said that the patient was interested in having Vivatrol injections ---> message forwarded to Resident Arthur Dinero.
Plan follow patient's progress with her mobility.
Original Note:
Patient with Hx squamous cell CA of mouth, Etoh use disorder, recent paracentesis for ascites. PT Eval; requires assist of 2, recommend skilled rehab.
Met with patient who resides with her and 4 dogs in a 2 story house with 3 FR[address].
The patient was independent in ADLs and ambulation until about 1 1/2 weeks ago when she developed weakness.
She was mostly staying in bed recently, saying it took 20 minutes to get herself off the toilet due to weakness.
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
She denies any food, housing/utilities or transportation insecurity.
DME - [facility]
Prior [facility]
No prior SNF.
PCP - Brielle Boland
Pharmacy - [facility]
CM Consult:
Advanced Directive
Provided forms and patient agrees to inform nurse when completed.
CM Consult: Etoh Withdrawal Risk
The patient states she has not participated in any Etoh outpatient or inpatient program previously, including AA.
She confirms that her has completed [facility] for Etoh - asked her if she would be interested in the same program - no response.
Patient volunteers that she wishes to separate from her due to his alcohol use, which she feels is impacting her ability to not drink.
She has asked her to move out of their house.
The patient agrees to speak with AYLIN---> referral to [facility]. Jayden will see the patient today.
The patient says she has no family in [place]. She has a brother in [place]. The patient has no children.
Message to Resident Arthur Dinero requesting OT Eval.
Plan follow up after seen by OT.
Plan follow up after seen by BCARES.
--- NOTE | 2024-07-06 11:42 | PTCARENOTE ---
Assumed care of patient this morning. She is aaox3. MSAS was 2 this morning. Pt does complain of nausea but was able to eat sal[place]ar and some sausage this morning. Pt now NPO for abdominal US this afternoon. Pt has large, round, full appearing abdomen.
Pt is continent of bladder but has been incontinent of bowel. Pt remains on 3% NaCl. Pt is currently sitting up in the chair, pt got up approx 0945. Assessment, care and VS as charted.
[2024-07-06 15:42] LABS: Carbon Dioxide 28 mmol/L (22-30); Chloride 82 mmol/L (98-107); Potassium 4.2 mmol/L (3.5-5.1); Sodium 119 mmol/L (135-145)
[2024-07-06 20:24] LABS: Carbon Dioxide 29 mmol/L (22-30); Chloride 80 mmol/L (98-107); Potassium 3.6 mmol/L (3.5-5.1); Sodium 119 mmol/L (135-145)
--- NOTE | 2024-07-06 21:08 | W.PN.UPDATE ---
Update Note
Progress Note Update
Pt was away for U/S, will return to interview.
[2024-07-06] MEDS: REMERON 30 MG PO (21:25)
[2024-07-07] VITALS (28 sets, daily range): BP systolic 87–130; BP diastolic 52–90; BMI 22.1
[2024-07-07] MEDS: SODIUM CHLORIDE 3% 500 IV (04:04)
[2024-07-07 05:55] LABS: INR 1.68; PT 20.3 Sec (11.4-14.6)
[2024-07-07 06:10] LABS: % Basophils 0.5 % (0-2); % Eosinophils 0.6 % (0-6); % Immature Granulocytes 0.9 % (0-0.5); % Lymphocytes 15.4 % (20.5-51.1); % Monocytes 10.2 % (1.7-9.3); % Neutrophils 72.4 % (42.2-75.2); ALT (SGPT) 43 U/L (0-35); AST (SGOT) 211 U/L (14-36); Absolute Basophils 0.1 10^3/uL (0-0.2); Absolute Eosinophils 0.1 10^3/uL (0-0.7); Absolute Immature Granulocytes 0.1 10^3/uL (0-0.05); Absolute Lymphocytes 1.8 10^3/uL (1.2-3.4); Absolute Monocytes 1.2 10^3/uL (0.1-0.6); Absolute Neutrophils 8.4 10^3/uL (1.4-6.5); Albumin 2.6 g/dl (3.5-5.0); Alkaline Phosphatase 336 U/L (38-126); Blood Urea Nitrogen 14 mg/dl (7-17); Calcium 7.7 mg/dl (8.4-10.2); Carbon Dioxide 29 mmol/L (22-30); Chloride 85 mmol/L (98-107); Estimated Creatinine Clearance 83 ml/min; Glucose 102 mg/dl (70-99); Hematocrit 18.2 % (37.0-47.0); Hemoglobin 6.8 g/dL (12.0-16.0); Magnesium 1.3 mg/dl (1.6-2.3); Mean Corp Hgb Conc. 37.4 g/dL (33.0-37.0); Mean Corpuscular Hgb 38.6 pg (27.0-31.0); Mean Corpuscular Volume 103.4 fL (81.0-99.0); Mean Platelet Volume 10.7 fL (7.4-10.4); Nucleated Red Blood Cells % 0 %; Platelet Count 132 10^3/uL (130-400); Potassium 3.7 mmol/L (3.5-5.1); Red Blood Cell Count 1.76 10^6/uL (4.20-5.40); Red Cell Dist. Width 14.1 % (11.5-14.5); Sodium 122 mmol/L (135-145); Total Bilirubin 10.6 mg/dl (0.2-1.3); Total Protein 6.1 g/dl (6.3-8.2); White Blood Cell Count 11.7 10^3/uL (4.8-10.8); eGFR > 60.00
--- NOTE | 2024-07-07 06:21 | W.PN.UPDATE ---
Update Note
Progress Note Update
AM labs received, critical value, Hgb 6.8/Hct 18.2. Consent to transfuse scanned in chart, dated 07/05/2024. Ordered type and screen, and one unit PRBC's. RN aware.
Mag 1.3, ordered supplemental Magnesium IV.
--- NOTE | 2024-07-07 06:56 | W.PN.GI.CBS2 ---
Addendum entered and electronically signed by Jina Acuna DO 07/07/24 12:12:
The patient was seen and examined by me independently in collaboration with the nurse practitioner.
Past medical history/social history/medications/allergies/family history reviewed.
Lab data and imaging data reviewed.
Patient seen in follow-up-- Na improved to 122.
Hgb dropped 7.6 --> 6.8 without evidence of active GI bleeding
INR elevated 1.59 --> 1.68; I suspect a large nutritional component rather than acute liver failure
Doppler US shows moderate ascites, patent vasculature
Mg 1.3, replete; phos WNL
Tbili trending down, 13.8 --> 13.1 --> 10.6; DF slightly increased to 44 due slightly worsening INR
Mental status intact
Mild leukocytosis of 11.7, procal elevated
Plan:
-continue sodium correction per nephrology; hold diuretics
-diagnostic paracentesis -- need to give 6-8 g of 25% albumin for every liter above 4.5L removed
-->check fluid studies: culture, cell count, fluid, albumin
-empirically start ceftriaxone following paracentesis
-check blood cultures
-PPI IV BID
-2 large peripheral gauge IVs
-Active T&C
-transfuse for Hgb <7
-Start oral vitamin K
-Hold on steroids due to possible worsening of hyponatremia as well as concern for infection
-Nutrition consult
-Education on alcohol cessation-- SW consult for rehab-- was open to it when I spoke with her
[facility] continue to follow
Original Note:
Today's Communication / Plan
-
concern for ETOH hepatitis unclear if any underlying cirrhosis
MELD 3.0 27 on admission , 07/06 DF 42.3 based on control of 13-- 07/07 44.1
steroids held for now as can also cause hyponatremia but consider if DF still elevated after further correction
add vitamin K orally with some rise in INR though LFT's slight improvement
if not responding to steroid will need hepatology evaluation ( no prior evaluation in past)
US with Hepatomegaly, severe fatty liver, no lesion, small volume ascites, GB thickening with ascites
reviewed with renal continue to correct NA 122, diuretics on hold
t/c para when Na better corrected if enough fluid to tap ( reported as small amount per US)
diuretic management per renal
trend daily MELD labs
regular diet with fluid restriction, cont supplement BID -- stressed need for good nutrition
trend hbg with anemia some drop may be bone marrow suppression wtih ETOH use -- stools remains brown s/p recent EGD/colonoscopy completed
again counseled on ETOH abstinence pt motivated to quit
case management consider for resources
consider psych eval-- for depression/ETOH issues - pt states she does not feel very focused today to review with them
Assessment / Plan
-
Pt is a 58yo with hx squamous cell of mouth s/p resection at [facility], ETOH abuse, tobacco abuse, colon polyps with OP follow in GI office as recently as 2 weeks ago with concern for ETOH issues. She was noted with anemia with hbg 9 range and
elevated LFT's with bili 3.6 up from 2 in April and now bili 13.8 on admission with severe hyponatremia with Na 114 and rise in INR to 1.59. She admits to slow wean of ETOH but still drinking 2 glasses of vodka daily. She also admits to
ongoing issue with abdominal distention. She completed para 06/22 for 5350 neg SBP. No hx evaluation with hepatology in past.
07/05/24 US Abdomen Complete/Upper
1. Hepatomegaly. Increased hepatic echogenicity most consistent with severe fatty infiltration. No suspicious focal hepatic lesion identified sonographically.
2. Small volume of ascites.
3. Diffuse gallbladder wall thickening most likely related to ascites. No abnormal gallbladder dilation. Negative sonographic Gramajo sign.
4. Pancreas not well seen secondary to overlying bowel gas.
07/06/24 US abd doppler
1. No sonographic evidence for portal or hepatic vein thrombosis.
2. Moderate right upper quadrant perihepatic ascites.
-ETOH hepatitis with decompensation
-marked rise in LFT's
-leukocytosis
-anemia
-coagulopathy
-ascites
-severe hyponatremia
-weakness/failure to thrive
-continued ETOH abuse
-GB thickening likely related to ascites
-diarrhea
-hypotension
-hypoalbuminemia
-malnutrition/failure to thrive
-hx squamous cell mouth with resection
PLAN:
concern for ETOH hepatitis unclear if any underlying cirrhosis
MELD 3.0 27 on admission , 07/06 DF 42.3 based on control of -- 07/07 44.1
steroids held for now as can also cause hyponatremia but consider if DF still elevated after further correction
add vitamin K orally with some rise in INR though LFT's slight improvement
if not responding to steroid will need hepatology evaluation ( no prior evaluation in past)
US with Hepatomegaly, severe fatty liver, no lesion, small volume ascites, GB thickening with ascites
reviewed with renal continue to correct NA 122, diuretics on hold
t/c para when Na better corrected if enough fluid to tap ( reported as small amount per US)
diuretic management per renal
trend daily MELD labs
regular diet with fluid restriction, cont supplement BID -- stressed need for good nutrition
trend hbg with anemia some drop may be bone marrow suppression wtih ETOH use -- stools remains brown s/p recent EGD/colonoscopy completed
again counseled on ETOH abstinence pt motivated to quit
case management consider for resources
consider psych eval-- for depression/ETOH issues - pt states she does not feel very focused today to review with them
Subjective
Subjective
Date of Service: July 07, 2024
07/07 susanne shi stools, on regular diet with supplement
Objective
Data Reviewed
Laboratory Data:
Laboratory Results
07/07/24 05:30
07/07/24 05:30
Laboratory Results
PT 20.3 Sec (11.4-14.6) H 07/07/24 05:30
INR 1.68 07/07/24 05:30
APTT 42.3 Sec (23.4-35.0) H 07/05/24 21:04
Phosphorus 3.3 mg/dl (2.5-4.5) 07/05/24 21:04
Magnesium 1.3 mg/dl (1.6-2.3) L 07/07/24 05:30
Total Bilirubin 10.6 mg/dl (0.2-1.3) H 07/07/24 05:30
AST 211 U/L (14-36) H 07/07/24 05:30
ALT 43 U/L (0-35) H 07/07/24 05:30
Alkaline Phosphatase 336 U/L (38-126) H 07/07/24 05:30
Lipase 123 U/L (23-300) 07/05/24 14:05
Vital Signs and I&O:
Vital Signs
Temp Pulse Resp BP Pulse Ox
98.1 F 89 19 87/52 98
07/07/24 04:33 07/07/24 05:00 07/07/24 05:00 07/07/24 04:00 07/07/24 05:00
I&O
07/05/24 07/06/24 07/07/24
06:59 06:59 06:59
Intake Total 120 / 120 300 / 300
Output Total 200 / 200 600 / 600
Balance -80 / -80 -300 / -300
Physical Exam
Physical Exam
HEENT: Other (jaundice )
Cardiology: Normal Sinus Rhythm
Pulmonary: Other (decreased)
GI: Soft, Distended and Tender (mild)
Extremities: Edema (trace)
Neuro: Non Focal
--- NOTE | 2024-07-07 07:53 | W.PN.HOSP.TC ---
Addendum entered and electronically signed by James Epps MD 07/07/24 15:24:
Seen and examined by me independently in collaboration with the medical billing clerk Arthur.
Lab data and imaging data reviewed.
Addendum as below :
Feeling improved with weakness but not at baseline.
She continues to have some discomfort in abdomen and poor appetite.
Afebrile. MAP more than 65.
Alert and oriented. No respiratory distress. Chest CTA.
Abdomen distended with generalized discomfort in all the quadrants but no rebound guarding rigidity.
Improving sodium-continue treatments per nephrology
Acute on chronic anemia. No obvious external bleeding. Check stools for blood. Transfuse PRBC.
With leukocytosis and elevated procalcitonin and ongoing abdominal discomfort and no other obvious source of infection including urine and chest will plan on diagnostic paracentesis today and pending start antibiotics. Will hold the steroids for
alcohol hepatitis till infection ruled out.
Discussed with GI about the plan.
Discussed with IR for diagnostic paracentesis.
Today patient is amenable for psychiatry evaluation for her chronic alcoholism and anxiety.
total time spent on today's encounter was 52 minutes which included time spent in counseling the patient/family regarding diagnosis and treatment plan as listed above, goals of care, and symptom management. Case was discussed with nursing staff,
specialists . All labs and imaging personally reviewed by me. Remainder the time spent in detailed review of previous records, lab data, imaging, and other medical provider documentation.
Original Note:
Today's Communication/Plan
-
Continue 3% sodium
Symptomatic management
Transfuse 1 unit packed red blood cell, transfuse magnesium
Monitor labs closely
IR to diag para today
Assessment / Plan
Assessment / Plan
Assessment:
58-year-old female past ministry of alcohol use disorder, recurrent ascites, alcoholic hepatitis, jaundice presents with acute symptomatic hyponatremia.
Plan:
#Acute hyponatremia
Sodium on admission 114
Sodium today 122
Continue 3% saline
Etiology likely secondary to hepatorenal syndrome and volume overload
Urine sodium less than 5, osmolarity also low
Nephrology following
Fluid restriction
Mentation intact, patient is not confused or altered
#Abdominal ascites
Patient has a history of recurrent abdominal ascites
Ultrasound abdomen demonstrated small volume ascites
Patient currently has fluid wave present on exam
GI following
GI considering taking for paracentesis once sodium has improved
Right upper quadrant Doppler demonstrated no sonographic evidence for portal or hepatic vein thrombosis
Ir consulted to preform diagnostic paracentesis today
Labs ordered for analysis
May consider starting ceftriaxone based off results
#Suspected alcohol hepatitis
AST ALT and alk phos all elevated
T bilirubin 13, GGT elevated 610
Recent admission demonstrated T bilirubin of approximately 2, likely patient has acute injury of liver due to alcohol
Ultrasound abdomen demonstrated hepatomegaly, no suspicious focal hepatic lesions
Daily CMP
#Alcohol use disorder
Patient reports drinking 2 glasses of vodka per day, based on labs very likely much more
Patient would like rehab services, endorses wanting to get better
credit manager consult, B cares consult
Psychiatry consult today pending
Continue M SAS protocol with supportive measures
#Hyperbilirubinemia
#Acute jaundice
Improving, LFTs still elevated
Likely acute on chronic transaminitis
T. bili 13.8 on admission
AST, ALT and alk phos also all elevated
GI consulted and following
Daily CMP
#Acute on chronic anemia
Likely anemia of chronic disease, iron labs demonstrated extremely high ferritin and high iron saturation
Will check stools for heme positivity
Hemoglobin returned 6.8 today, new consent obtained 07/07/24 1 unit packed red blood cells given. Will recheck H&H in afternoon
Will recheck CBC in a.m.
#Hypomagnesemia
Magnesium returned low
Status post magnesium infusion x 2
Will recheck mag in a.m.
#Hypokalemia
Resolved
Status post potassium replacement
Monitor with daily CMP
#Asymptomatic bacteriuria
UA on admission demonstrates that urine is dirty with bacteria and yeast as well as white blood cells
UA sample demonstrated it was not a clean catch and culture returned mixed
Recheck UA with culture
Patient currently has no symptoms, she is not or immune suppressed
Guidelines recommend no need for antibiotics at this time
CODE STATUS: DNR
Diet: Regular with fluid restriction
DVT prophylaxis: SCDs
Anticipated Discharge: > 48 hours
Subjective/Interval History
-
Date of Service: July 07, 2024
Hemoglobin returned 6.8 this morning, consent and transfusion of 1 unit of packed red blood cell completed
Magnesium also low, administered IV magnesium
Patient reports feeling better than yesterday, still nauseous, Also had difficulty sleeping
Objective Data
-
Labs:
Laboratory Results
07/06/24 07/07/24
19:52 05:30
WBC 11.7 H
Hgb 6.8 L*
Hct 18.2 L*
Plt Count 132
PT 20.3 H
INR 1.68
Sodium 119 L* 122 L
Potassium 3.6 3.7
Chloride 80 L 85 L
Carbon Dioxide 29 29
BUN 14
Creatinine 0.7
Glucose 102 H
Calcium 7.7 L
Total Bilirubin 10.6 H
AST 211 H
ALT 43 H
Alkaline Phosphatase 336 H
Vital Signs:
Vital Signs
Temp Pulse Resp BP Pulse Ox
98.1 F 89 19 87/52 98
07/07/24 07:23 07/07/24 05:00 07/07/24 05:00 07/07/24 04:00 07/07/24 05:00
I&O
07/06/24 07/07/24 07/08/24
06:59 06:59 06:59
Intake Total 120 / 120 300 / 300
Output Total 200 / 200 600 / 600
Balance -80 / -80 -300 / -300
Review of Systems
-
Constitutional: Reports No Appetite and Sleep Disturbance
Respiratory: Reports No Symptoms
Cardiac: Reports No Symptoms
Abdomen/GI: Reports Abdominal Pain, Nausea and Diarrhea; Denies Vomiting
Genitourinary: Reports No Symptoms
Musculoskeletal: Reports Edema
Physical Exam
-
General: Conversant and Appears Chronically Ill
Respiratory: Clear to Auscultation
Cardiac: Regular Rhythm and S1/S2
GI: Soft, Tender and Distended
Musculoskeletal: Edema, Right Lower Extrem and Edema, Left Lower Extrem
Skin: Warm and Dry
Neuro: Awake, Alert, Oriented and AO x 3; Negative Tremors
Psych: Calm and Intact Judgement/Insight
Data Reviewed
-
Ultrasound: Report Reviewed by me and Discussed with Physician
Labs: Labs Reviewed by me and Discussed with Physician
[2024-07-07] MEDS: MAG-TAB SR 84 MG PO ×3 (08:29→20:00)
[2024-07-07] MEDS: MEPHYTON 10 MG PO (08:29)
[2024-07-07] MEDS: MAGNESIUM SULFATE 102 GRAMS IV (08:29)
[2024-07-07] MEDS: THIAMINE INJECTION 200 MG IV ×2 (08:30→18:38)
[2024-07-07] MEDS: SYNTHROID 50 MCG PO (08:30)
[2024-07-07] MEDS: NSS (PRESERVATIVE FREE) 10 ML IV ×2 (08:30→21:26)
[2024-07-07] MEDS: PROTONIX IV 40 MG IV ×2 (08:30→21:26)
[2024-07-07] MEDS: FOLVITE 1 MG PO (08:30)
[2024-07-07] MEDS: ZOFRAN 4 MG PO (08:55)
--- NOTE | 2024-07-07 09:27 | W.PN.NEPH.PH ---
Today's Communication / Plan
-
Maintain hypertonic saline at 15 cc per
Recheck electrolytes at 3 PM
Holding diuretic
For blood products
Assessment/Plan
-
Assessment
Cirrhosis
Suspected ETOH hepatitis
Ascites
Weakness/failure to thrive/poor oral intake
Acute hyponatremia
Jaundice
Hypotension
Hypothyroidism
Hypoalbuminemia
Plan
s/p 3% NaCl was given : sodium up to 122 from 114 (07/05)
will contine 3% saline at 15cc/hr and recheck at 3pm
Urine sodium was less than 5 urine osmolality 241
Lasix due to hypotension and suspected compromise effective circulating volume
Fluid restriction 40 ounces to continue
Encourage oral intake, increase solute intake
We will provide IV albumin following eventual paracentesis for low blood pressure which will help suppress ADH
Patient to receive blood products today which will help suppress ADH and assist with hypotension
-
-
Date of Service: July 07, 2024
CC / HPI / ROS
-
Chief Complaint:
Hyponatremia
History of Present Illness:
serum sodium up from 114 to 122 on 3% saline 15cc/hr
hemodynamically unstable (sbp ~89)
Anemia worsening
Review of Systems:
non oliguric
no fevers
on O2
ascites
Labs
-
Labs:
WBC 11.7 10^3/uL (4.8-10.8) H 07/07/24 05:30
RBC 1.76 10^6/uL (4.20-5.40) L 07/07/24 05:30
Plt Count 132 10^3/uL (130-400) 07/07/24 05:30
Sodium 122 mmol/L (135-145) L 07/07/24 05:30
Potassium 3.7 mmol/L (3.5-5.1) 07/07/24 05:30
Chloride 85 mmol/L (98-107) L 07/07/24 05:30
Carbon Dioxide 29 mmol/L (22-30) 07/07/24 05:30
BUN 14 mg/dl (7-17) 07/07/24 05:30
Creatinine 0.7 mg/dL (0.6-1.0) 07/07/24 05:30
eGFR > 60.00 07/07/24 05:30
Glucose 102 mg/dl (70-99) H 07/07/24 05:30
Calcium 7.7 mg/dl (8.4-10.2) L 07/07/24 05:30
Phosphorus 3.3 mg/dl (2.5-4.5) 07/05/24 21:04
Albumin 2.6 g/dl (3.5-5.0) L 07/07/24 05:30
Physical Exam
-
Vital Signs:
Vital Signs
Temp Pulse Resp BP Pulse Ox
98.2 F 89 19 87/52 98
07/07/24 08:34 07/07/24 05:00 07/07/24 05:00 07/07/24 04:00 07/07/24 05:00
Cardiovascular:: Regular rate and rhythm
Respiratory:: Bilateral: CTA
Lung Excursion:: Normal
Abdomen:: Distended
Bowel Sounds:: Decreased
Extremity Edema:: None: Bilateral:
Joyce Catheter: No
--- NOTE | 2024-07-07 12:41 | PTCARENOTE ---
see nursing shift assessment. sinus rythym on monitor. one unit of prbcs infusing without signs of reaction. medicated with zofran this am for mild nausea with good relief. ate 100 percent of breakfast. oob to chair briefly and using bedside commode
prn, c/o slight dizziness when standing. 3percent saline infusing per order. see msas, pt not requiring any prn ativan this am.
[2024-07-07 16:21] LABS: Hematocrit 25.9 % (37.0-47.0); Hemoglobin 9.2 g/dL (12.0-16.0)
[2024-07-07 16:30] LABS: Carbon Dioxide 28 mmol/L (22-30); Chloride 87 mmol/L (98-107); Potassium 3.6 mmol/L (3.5-5.1); Sodium 126 mmol/L (135-145)
--- NOTE | 2024-07-07 16:34 | CM ---
Patient with Hx squamous cell CA of mouth, Etoh use disorder, recent paracentesis for ascites. PT Eval; requires assist of 2, recommend skilled rehab. PT/OT held today due to transfusion.
As per prior CM notes, seen by [facility] and agreed to an outpatient program/resources.
Plan follow patient's progress with PT/OT and follow up after next therapy session.
[2024-07-07 18:06] LABS: Body Fluid Albumin < 1.0 g/dl
[2024-07-07 18:36] LABS: Body Fluid Second Tech DW
[2024-07-07 18:37] LABS: Body Fluid Mononuclear 62.2 %; Body Fluid Polymorphonuclear 37.8 %; Body Fluid WBC 66 /CUMM
[2024-07-07] MEDS: ATIVAN 1 MG PO (21:28)
[2024-07-07] MEDS: REMERON 30 MG PO (21:28)
--- NOTE | 2024-07-07 21:35 | PTCARENOTE ---
Received pt from day shift. Pt aaox3. NSR on the monitor. Pt assisted to BSC, hygiene completed and URBAN medications administered. Pt resting in bed with call hunt in reach.
[2024-07-08] VITALS (8 sets, daily range): BP systolic 94–117; BP diastolic 57–81; PULSE 94–96; O2SAT 98; BMI 19.7
[2024-07-08] MEDS: THIAMINE INJECTION 200 MG IV ×2 (00:40→07:36)
[2024-07-08 05:34] LABS: % Basophils 0.7 % (0-2); % Eosinophils 0.8 % (0-6); % Immature Granulocytes 1.2 % (0-0.5); % Lymphocytes 21.1 % (20.5-51.1); % Monocytes 10.5 % (1.7-9.3); % Neutrophils 65.7 % (42.2-75.2); Absolute Basophils 0.1 10^3/uL (0-0.2); Absolute Eosinophils 0.1 10^3/uL (0-0.7); Absolute Immature Granulocytes 0.1 10^3/uL (0-0.05); Absolute Lymphocytes 2.2 10^3/uL (1.2-3.4); Absolute Monocytes 1.1 10^3/uL (0.1-0.6); Absolute Neutrophils 6.9 10^3/uL (1.4-6.5); Hemoglobin 8.4 g/dL (12.0-16.0); Mean Corp Hgb Conc. 36.5 g/dL (33.0-37.0); Mean Corpuscular Hgb 34.7 pg (27.0-31.0); Mean Platelet Volume 10.2 fL (7.4-10.4); Nucleated Red Blood Cells % 0 %; Platelet Count 144 10^3/uL (130-400); Red Blood Cell Count 2.42 10^6/uL (4.20-5.40); Red Cell Dist. Width 25.2 % (11.5-14.5); White Blood Cell Count 10.5 10^3/uL (4.8-10.8)
[2024-07-08 05:46] LABS: INR 1.53; PT 18.9 Sec (11.4-14.6)
[2024-07-08 05:59] LABS: ALT (SGPT) 42 U/L (0-35); AST (SGOT) 210 U/L (14-36); Albumin 2.6 g/dl (3.5-5.0); Alkaline Phosphatase 346 U/L (38-126); Blood Urea Nitrogen 12 mg/dl (7-17); Calcium 7.9 mg/dl (8.4-10.2); Carbon Dioxide 28 mmol/L (22-30); Chloride 90 mmol/L (98-107); Estimated Creatinine Clearance 78 ml/min; Glucose 90 mg/dl (70-99); Magnesium 1.6 mg/dl (1.6-2.3); Potassium 3.5 mmol/L (3.5-5.1); Sodium 127 mmol/L (135-145); Total Bilirubin 9.4 mg/dl (0.2-1.3); Total Protein 6.1 g/dl (6.3-8.2); eGFR > 60.00
[2024-07-08] MEDS: SYNTHROID 50 MCG PO (07:24)
[2024-07-08] MEDS: MAG-TAB SR 84 MG PO ×2 (07:35→20:59)
[2024-07-08] MEDS: FOLVITE 1 MG PO (07:35)
[2024-07-08] MEDS: PROTONIX IV 40 MG IV (07:36)
[2024-07-08] MEDS: NSS (PRESERVATIVE FREE) 10 ML IV (07:36)
[2024-07-08 08:29] LABS: Normal RBC Morphology No
[2024-07-08 08:30] LABS: Anisocytosis 1+; Macrocytosis 1+
[2024-07-08 08:31] LABS: Hypochromasia 1+; Target Cells 1+
--- NOTE | 2024-07-08 08:53 | W.PN.NEPH.PH ---
Today's Communication / Plan
-
NaCl
Assessment/Plan
-
Assessment
Cirrhosis
Suspected ETOH hepatitis
Ascites
Weakness/failure to thrive/poor oral intake
Acute hyponatremia
Jaundice
Hypotension
Hypothyroidism
Hypoalbuminemia
Plan
salt tabs
follow BMP
no lasix for now
albumin course
transfuse prn
-
-
Date of Service: July 08, 2024
CC / HPI / ROS
-
Chief Complaint:
Hyponatremia
History of Present Illness:
serum sodium up to 127 after 3%
hemodynamically unstable/hypotense
Anemia worsening 8.4
Review of Systems:
non oliguric
no fevers
on O2
ascites
Labs
-
Labs:
WBC 10.5 10^3/uL (4.8-10.8) 07/08/24 05:19
RBC 2.42 10^6/uL (4.20-5.40) L 07/08/24 05:19
Hgb 8.4 g/dL (12.0-16.0) L 07/08/24 05:19
Hct 23.0 % (37.0-47.0) L 07/08/24 05:19
Plt Count 144 10^3/uL (130-400) 07/08/24 05:19
Sodium 127 mmol/L (135-145) L 07/08/24 05:19
Potassium 3.5 mmol/L (3.5-5.1) 07/08/24 05:19
Chloride 90 mmol/L (98-107) L 07/08/24 05:19
Carbon Dioxide 28 mmol/L (22-30) 07/08/24 05:19
BUN 12 mg/dl (7-17) 07/08/24 05:19
Creatinine 0.7 mg/dL (0.6-1.0) 07/08/24 05:19
eGFR > 60.00 07/08/24 05:19
Glucose 90 mg/dl (70-99) 07/08/24 05:19
Calcium 7.9 mg/dl (8.4-10.2) L 07/08/24 05:19
Phosphorus 3.3 mg/dl (2.5-4.5) 07/05/24 21:04
Albumin 2.6 g/dl (3.5-5.0) L 07/08/24 05:19
Physical Exam
-
Vital Signs:
Vital Signs
Temp Pulse Resp BP Pulse Ox
98.1 F 96 18 99/67 94
07/08/24 07:30 07/08/24 08:00 07/08/24 08:00 07/08/24 06:58 07/08/24 08:00
Cardiovascular:: Regular rate and rhythm
Respiratory:: Bilateral: Coarse
Lung Excursion:: Normal
Abdomen:: Nontender and Soft
Bowel Sounds:: Normal
Extremity Edema:: None: Bilateral:
--- NOTE | 2024-07-08 09:26 | W.PN.HOSP.TC ---
Addendum entered and electronically signed by James Epps MD 07/08/24 16:37:
seen and examined by me independently in collaboration with the medical fee clerk Arthur.
Lab data and imaging data reviewed.
Addendum as below :
Patient is feeling improved with regards to weakness. Tolerating diet little bit better.
Improved sodium noted. Status post paracentesis and no evidence of SBP based on the cell count.
Status post blood transfusion with improved blood count. Await heme testing.
Restart diuretics when okay by nephro from Na standpoint.
Transfer to [facility].
With regards to alcoholism she is B cares and plans to do outpatient rehab. Appreciate psychiatry input
Original Note:
Today's Communication/Plan
-
Downgrade to med surg
continue NA tablets
Initiation of steroids per GI
Assessment / Plan
Assessment / Plan
Assessment:
58-year-old female past ministry of alcohol use disorder, recurrent ascites, alcoholic hepatitis, jaundice presents with acute symptomatic hyponatremia.
Plan:
#Acute hyponatremia
Sodium on admission 114
Sodium today 127
3% saline discontinued
Started on Na tablets by nephrology
Etiology likely secondary to hepatorenal syndrome and volume overload
Urine sodium less than 5, osmolarity also low
Nephrology following
Fluid restriction
Mentation intact, patient is not confused or altered
#Abdominal ascites
Patient has a history of recurrent abdominal ascites
Ultrasound abdomen demonstrated small volume ascites
Patient currently has fluid wave present on exam
GI following
GI considering taking for paracentesis once sodium has improved
Right upper quadrant Doppler demonstrated no sonographic evidence for portal or hepatic vein thrombosis
IR preformed diagnostic paracentesis on 07/07/24. Removed 5850ml of asitic fluid
IV albumin replacement per protocol
Ascites fluid returned sterile
no need for ceftriaxone
#Suspected alcohol hepatitis
AST ALT and alk phos all elevated
T bilirubin 13, GGT elevated 610
Recent admission demonstrated T bilirubin of approximately 2, likely patient has acute injury of liver due to alcohol
Ultrasound abdomen demonstrated hepatomegaly, no suspicious focal hepatic lesions
GI to start steroids today
Daily CMP
#Alcohol use disorder
Patient reports drinking 2 glasses of vodka per day, based on labs very likely much more
Patient would like rehab services, endorses wanting to get better
manager graphic consult, B cares consult- pt wanting outpatient rehab
Psychiatry consult today pending
Continue M SAS protocol with supportive measures
#Hyperbilirubinemia
#Acute jaundice
Improving, LFTs still elevated
Likely acute on chronic transaminitis
T. bili 13.8 on admission
AST, ALT and alk phos also all elevated
GI consulted and following
Daily CMP
#Acute on chronic anemia
Likely anemia of chronic disease, iron labs demonstrated extremely high ferritin and high iron saturation
Will check stools for heme positivity
Hemoglobin returned 6.8, new consent obtained 07/07/24 1 unit packed red blood cells given.
Transfuse if below 7
Continue to monitor with daily CBC
#Hypomagnesemia
Resolved
Magnesium returned low
Status post magnesium infusion x 2
#Hypokalemia
Resolved
Status post potassium replacement
Monitor with daily CMP
#Asymptomatic bacteriuria
UA on admission demonstrates that urine is dirty with bacteria and yeast as well as white blood cells
UA sample demonstrated it was not a clean catch and culture returned mixed
Recheck UA with culture
Patient currently has no symptoms, she is not or immune suppressed
Guidelines recommend no need for antibiotics at this time
CODE STATUS: DNR
Diet: Regular with fluid restriction
DVT prophylaxis: SCDs
Anticipated Discharge: 24 - 48 hours
Subjective/Interval History
-
Date of Service: July 08, 2024
Patient states feeling better after paracentesis
Objective Data
-
Labs:
Laboratory Results
07/08/24
05:19
WBC 10.5
Hgb 8.4 L
Hct 23.0 L
Plt Count 144
PT 18.9 H
INR 1.53
Sodium 127 L
Potassium 3.5
Chloride 90 L
Carbon Dioxide 28
BUN 12
Creatinine 0.7
Glucose 90
Calcium 7.9 L
Total Bilirubin 9.4 H
AST 210 H
ALT 42 H
Alkaline Phosphatase 346 H
Vital Signs:
Vital Signs
Temp Pulse Resp BP Pulse Ox
98.1 F 96 18 99/67 94
07/08/24 07:30 07/08/24 08:00 07/08/24 08:00 07/08/24 06:58 07/08/24 08:00
I&O
07/07/24 07/08/24 07/09/24
06:59 06:59 06:59
Intake Total 300 / 300 310 / 310
Output Total 600 / 600
Balance -300 / -300 310 / 310
Review of Systems
-
History Source: Patient
Constitutional: Reports No Symptoms
Respiratory: Reports No Symptoms
Cardiac: Reports No Symptoms
Abdomen/GI: Reports No Symptoms
Physical Exam
-
General: Well Developed and Well Nourished
Respiratory: Clear to Auscultation
Cardiac: Regular Rhythm and S1/S2
GI: Soft, Nontender, Distended (Slightly distended, much improved from yesterday) and Other (No obvious fluid wave appreciated)
Musculoskeletal: Other (Lower extremity edema present)
Skin: Warm and Dry
Neuro: Awake, Alert, Oriented and AO x 3
Psych: Calm and Intact Judgement/Insight
Data Reviewed
-
Labs: Labs Reviewed by me and Discussed with Physician
--- NOTE | 2024-07-08 10:36 | W.PN.GI.CBS2 ---
Today's Communication / Plan
-
-- Start steroids for alcoholic hepatitis
-- Out of bed with therapy
Assessment / Plan
-
Pt is a 58yo with hx squamous cell of mouth s/p resection at [place], ETOH abuse, tobacco abuse, colon polyps with OP follow in GI office as recently as 2 weeks ago with concern for ETOH issues. She was noted with anemia with hbg 9 range and
elevated LFT's with bili 3.6 up from 2 in April and now bili 13.8 on admission with severe hyponatremia with Na 114 and rise in INR to 1.59. She admits to slow wean of ETOH but still drinking 2 glasses of vodka daily. She also admits to
ongoing issue with abdominal distention. She completed para 06/22 for 5350 neg SBP. No hx evaluation with hepatology in past.
07/05/24 US Abdomen Complete/Upper
1. Hepatomegaly. Increased hepatic echogenicity most consistent with severe fatty infiltration. No suspicious focal hepatic lesion identified sonographically.
2. Small volume of ascites.
3. Diffuse gallbladder wall thickening most likely related to ascites. No abnormal gallbladder dilation. Negative sonographic Gramajo sign.
4. Pancreas not well seen secondary to overlying bowel gas.
07/06/24 US abd doppler
1. No sonographic evidence for portal or hepatic vein thrombosis.
2. Moderate right upper quadrant perihepatic ascites.
-ETOH hepatitis with decompensation
-marked rise in LFT's
-leukocytosis
-anemia
-coagulopathy
-ascites
-severe hyponatremia
-weakness/failure to thrive
-continued ETOH abuse
-GB thickening likely related to ascites
-diarrhea
-hypotension
-hypoalbuminemia
-malnutrition/failure to thrive
-hx squamous cell mouth with resection
PLAN:
concern for ETOH hepatitis unclear if any underlying cirrhosis
MELD 3.0 27 on admission , 07/06 DF 42.3 based on control of -- 07/07 44.1
steroids held for now as can also cause hyponatremia but consider if DF still elevated after further correction
add vitamin K orally with some rise in INR though LFT's slight improvement
if not responding to steroid will need hepatology evaluation ( no prior evaluation in past)
US with Hepatomegaly, severe fatty liver, no lesion, small volume ascites, GB thickening with ascites
reviewed with renal continue to correct NA 122, diuretics on hold
t/c para when Na better corrected if enough fluid to tap ( reported as small amount per US)
diuretic management per renal
trend daily MELD labs
regular diet with fluid restriction, cont supplement BID -- stressed need for good nutrition
trend hbg with anemia some drop may be bone marrow suppression wtih ETOH use -- stools remains brown s/p recent EGD/colonoscopy completed
again counseled on ETOH abstinence pt motivated to quit
case management consider for resources
consider psych eval-- for depression/ETOH issues - pt states she does not feel very focused today to review with them
07/08/2024
--# Chronic anemia - received 1 unit of blood yesterday, stools are brown with no significant overt bleeding
-- On 07/07/2024 received 10 mg of vitamin K more for malnutrition
-- Patient is eating well and has an appetite
-- # Hyponatremia -improving from 114 on admission to 127 today on 07/08 -appreciate renal -hyponatremia driven by poor nutrition, alcoholism, diuretics
# Alcoholic hepatitis -DF 41, steroids may slightly worsen her hyponatremia, she has no infection -urine culture negative, blood culture no growth, peritoneal fluid pending culture blood cell count less than 250 PMNs
--Nutrition and alcohol abstinence are the most important treatment for her. She has been ruled out for infection. She is on ulcer prophylaxis
--Due to her continued elevated DF we will start steroids but we will have to monitor her sodium
# Ascites -5.8 L removed on 07/07/2024 that is negative for SBP ultrasound with Dopplers showed no evidence of vascular clot, she has no lower extremity edema. She cannot tolerate diuretics at this point due to her hyponatremia
# Liver disease -has normal platelet count; unclear if she is cirrhotic; follows with Dr. Acuna outpatient -MELD 3.0 24, DF 41
# Active drinking -continues to drink high amounts of alcohol. Her is also an alcoholic. Social situation is a problem
# Malnutrition -today eating well
Subjective
Subjective
Date of Service: July 08, 2024
Patient does feel improved. She is not confused. Feels better after the paracentesis yesterday which was negative for SBP. Denies any bleeding.
Objective
Data Reviewed
Laboratory Data:
Laboratory Results
07/08/24 05:19
07/08/24 05:19
Laboratory Results
PT 18.9 Sec (11.4-14.6) H 07/08/24 05:19
INR 1.53 07/08/24 05:19
APTT 42.3 Sec (23.4-35.0) H 07/05/24 21:04
Phosphorus 3.3 mg/dl (2.5-4.5) 07/05/24 21:04
Magnesium 1.6 mg/dl (1.6-2.3) 07/08/24 05:19
Total Bilirubin 9.4 mg/dl (0.2-1.3) H 07/08/24 05:19
AST 210 U/L (14-36) H 07/08/24 05:19
ALT 42 U/L (0-35) H 07/08/24 05:19
Alkaline Phosphatase 346 U/L (38-126) H 07/08/24 05:19
Lipase 123 U/L (23-300) 07/05/24 14:05
Vital Signs and I&O:
Vital Signs
Temp Pulse Resp BP Pulse Ox
98.1 F 96 18 99/67 94
07/08/24 07:30 07/08/24 08:00 07/08/24 08:00 07/08/24 06:58 07/08/24 08:00
I&O
07/07/24 07/08/24 07/09/24
06:59 06:59 06:59
Intake Total 300 / 300 310 / 310
Output Total 600 / 600
Balance -300 / -300 310 / 310
Physical Exam
Physical Exam
HEENT: Anicteric (Icteric)
GI: Soft, Distended, Non Tender and Fluid Wave
Extremities: No Edema
Neuro: Non Focal
[2024-07-08] MEDS: SODIUM CHLORIDE 0.5 GRAM PO ×2 (12:13→20:59)
[2024-07-08] MEDS: FLEXBUMIN 100 IV ×2 (12:14→17:29)
[2024-07-08] MEDS: PRELONE 40 MG PO (12:15)
--- NOTE | 2024-07-08 12:36 | CM ---
Patient seen bedside.
Contine to monitor labs.
PT/OT recommending home with home care.
Options discussed, patient would like [facility].
TT to liaison.
Plan: home with [facility] when stable. Patient stated she does have a walker.
--- NOTE | 2024-07-08 14:16 | VNURNOTE ---
Home Health Liaison notified by CM patient requested [facility]. [facility] referral completed in [facility].
[2024-07-08 17:05] LABS: Urine Albumin Trace (Neg - Trace); Urine Bilirubin 2+ (Negative); Urine Character Clear (Clear); Urine Color Amber; Urine Glucose Negative (Negative); Urine Ketone Trace (Negative); Urine Leukocyte Trace (Negative); Urine Nitrite Negative (Negative); Urine Occult Blood Negative (Negative); Urine Specific Gravity 1.015 (<1.030); Urine Urobilinogen 4+ (Neg - 1+)
[2024-07-08 17:27] LABS: Urine Squamous Cell >30 /LPF (Few)
[2024-07-08 17:28] LABS: Urine Red Blood Cell 0-2 /HPF (0-2); Urine White Cell 0-2 /HPF (0-5)
[2024-07-08 17:29] LABS: Urine Bacteria Moderate (Negative); Urine Yeast Moderate (Negative)
--- NOTE | 2024-07-08 18:53 | PTCARENOTE ---
pt downgraded to med surg. [facility]. transformer mechanic recieving rn to call for report.
--- NOTE | 2024-07-08 19:59 | PTCARENOTE ---
report given to Lorne on .
[2024-07-08] MEDS: PROTONIX 40 MG PO (20:59)
[2024-07-08] MEDS: VITAMIN B1 100 MG PO (20:59)
[2024-07-08] MEDS: ATIVAN 1 MG PO (21:55)
[2024-07-08] MEDS: REMERON 30 MG PO (21:56)
[2024-07-09] MEDS: FLEXBUMIN 100 IV (01:56)
[2024-07-09] MEDS: SYNTHROID 50 MCG PO (05:07)
[2024-07-09 06:00] VITALS: BMI 20.2
--- NOTE | 2024-07-09 06:41 | W.PN.UPDATE ---
Update Note
Progress Note Update
1130 pt was code purple for attempting to flee unit
pt with confused conversation. staff able to bring pt back to room
pt agitated
will give ativan iv x1
add ammonia to labs if pt allows draw
1:1 for safety for now
[2024-07-09 07:45] VITALS: BP 128/86
[2024-07-09 08:08] LABS: % Basophils 0.2 % (0-2); % Immature Granulocytes 1.3 % (0-0.5); % Lymphocytes 12.9 % (20.5-51.1); % Monocytes 8.8 % (1.7-9.3); % Neutrophils 76.8 % (42.2-75.2); Absolute Immature Granulocytes 0.2 10^3/uL (0-0.05); Absolute Lymphocytes 1.5 10^3/uL (1.2-3.4); Absolute Monocytes 1.1 10^3/uL (0.1-0.6); Absolute Neutrophils 9.2 10^3/uL (1.4-6.5); Hematocrit 26.2 % (37.0-47.0); Hemoglobin 8.7 g/dL (12.0-16.0); Mean Corp Hgb Conc. 33.2 g/dL (33.0-37.0); Mean Corpuscular Hgb 33.3 pg (27.0-31.0); Mean Corpuscular Volume 100.4 fL (81.0-99.0); Mean Platelet Volume 10.3 fL (7.4-10.4); Nucleated Red Blood Cells % 0 %; Platelet Count 145 10^3/uL (130-400); Red Blood Cell Count 2.61 10^6/uL (4.20-5.40); Red Cell Dist. Width 25.4 % (11.5-14.5); White Blood Cell Count 11.9 10^3/uL (4.8-10.8)
[2024-07-09] MEDS: FOLVITE 1 MG PO (08:12)
[2024-07-09] MEDS: PROTONIX 40 MG PO (08:12)
[2024-07-09] MEDS: SODIUM CHLORIDE 0.5 GRAM PO (08:12)
[2024-07-09] MEDS: MAG-TAB SR 84 MG PO (08:12)
[2024-07-09] MEDS: VITAMIN B1 100 MG PO (08:12)
[2024-07-09 08:22] LABS: Ammonia 43 umol/L (9-30)
[2024-07-09 09:00] LABS: ALT (SGPT) 42 U/L (0-35); AST (SGOT) 190 U/L (14-36); Albumin 4.3 g/dl (3.5-5.0); Alkaline Phosphatase 325 U/L (38-126); Blood Urea Nitrogen 12 mg/dl (7-17); Calcium 8.9 mg/dl (8.4-10.2); Carbon Dioxide 25 mmol/L (22-30); Chloride 90 mmol/L (98-107); Estimated Creatinine Clearance 93 ml/min; Glucose 118 mg/dl (70-99); Potassium 3.6 mmol/L (3.5-5.1); Sodium 134 mmol/L (135-145); Total Bilirubin 9.6 mg/dl (0.2-1.3); Total Protein 8.1 g/dl (6.3-8.2); eGFR > 60.00
[2024-07-09 09:20] LABS: INR 1.38; PT 17.2 Sec (11.4-14.6)
--- NOTE | 2024-07-09 09:56 | W.PN.GI.CBS2 ---
Today's Communication / Plan
-
lab slips for [facility] for next to check Lille score
Assessment / Plan
-
Pt is a 58yo with hx squamous cell of mouth s/p resection at [place], ETOH abuse, tobacco abuse, colon polyps with OP follow in GI office as recently as 2 weeks ago with concern for ETOH issues. She was noted with anemia with hbg 9 range and
elevated LFT's with bili 3.6 up from 2 in April and now bili 13.8 on admission with severe hyponatremia with Na 114 and rise in INR to 1.59. She admits to slow wean of ETOH but still drinking 2 glasses of vodka daily. She also admits to
ongoing issue with abdominal distention. She completed para 06/22 for 5350 neg SBP. No hx evaluation with hepatology in past.
07/05/24 US Abdomen Complete/Upper
1. Hepatomegaly. Increased hepatic echogenicity most consistent with severe fatty infiltration. No suspicious focal hepatic lesion identified sonographically.
2. Small volume of ascites.
3. Diffuse gallbladder wall thickening most likely related to ascites. No abnormal gallbladder dilation. Negative sonographic Gramajo sign.
4. Pancreas not well seen secondary to overlying bowel gas.
07/06/24 US abd doppler
1. No sonographic evidence for portal or hepatic vein thrombosis.
2. Moderate right upper quadrant perihepatic ascites.
-ETOH hepatitis with decompensation
-marked rise in LFT's
-leukocytosis
-anemia
-coagulopathy
-ascites
-severe hyponatremia
-weakness/failure to thrive
-continued ETOH abuse
-GB thickening likely related to ascites
-diarrhea
-hypotension
-hypoalbuminemia
-malnutrition/failure to thrive
-hx squamous cell mouth with resection
07/07/2024
concern for ETOH hepatitis unclear if any underlying cirrhosis
MELD 3.0 27 on admission , 07/06 DF 42.3 based on control of 13-- 07/07 44.1
steroids held for now as can also cause hyponatremia but consider if DF still elevated after further correction
add vitamin K orally with some rise in INR though LFT's slight improvement
if not responding to steroid will need hepatology evaluation ( no prior evaluation in past)
US with Hepatomegaly, severe fatty liver, no lesion, small volume ascites, GB thickening with ascites
reviewed with renal continue to correct NA 122, diuretics on hold
t/c para when Na better corrected if enough fluid to tap ( reported as small amount per US)
diuretic management per renal
trend daily MELD labs
regular diet with fluid restriction, cont supplement BID -- stressed need for good nutrition
trend hbg with anemia some drop may be bone marrow suppression wtih ETOH use -- stools remains brown s/p recent EGD/colonoscopy completed
again counseled on ETOH abstinence pt motivated to quit
case management consider for resources
consider psych eval-- for depression/ETOH issues - pt states she does not feel very focused today to review with them
07/08/2024
--# Chronic anemia - received 1 unit of blood yesterday, stools are brown with no significant overt bleeding
-- On 07/07/2024 received 10 mg of vitamin K more for malnutrition
-- Patient is eating well and has an appetite
-- # Hyponatremia -improving from 114 on admission to 127 today on 07/08 -appreciate renal -hyponatremia driven by poor nutrition, alcoholism, diuretics
# Alcoholic hepatitis -DF 41, steroids may slightly worsen her hyponatremia, she has no infection -urine culture negative, blood culture no growth, peritoneal fluid pending culture blood cell count less than 250 PMNs
--Nutrition and alcohol abstinence are the most important treatment for her. She has been ruled out for infection. She is on ulcer prophylaxis
--Due to her continued elevated DF we will start steroids but we will have to monitor her sodium
# Ascites -5.8 L removed on 07/07/2024 that is negative for SBP ultrasound with Dopplers showed no evidence of vascular clot, she has no lower extremity edema. She cannot tolerate diuretics at this point due to her hyponatremia
# Liver disease -has normal platelet count; unclear if she is cirrhotic; follows with Dr. Acuna outpatient -MELD 3.0 24, DF 41
# Active drinking -continues to drink high amounts of alcohol. Her is also an alcoholic. Social situation is a problem
# Malnutrition -today eating well
07/09/2024
07/08/2024 Day 0 labs for Lille score: Total bilirubin 9.4 - started prednisone 40mg on 07/08/2024
- Gave lab slip for the hospital and for [facility] for day 7 for her to get a CBC as well. Likely discharge today - she will get blood work on 07/14/24
- has follow up with us in August
- sodium is back in 130s, restarting low dose of lactulose, low doses of diuretics and she is reaccumulating quickly
- -May need to repeat outpatient paracentesis. I told her to call her office if that is necessary
-I relayed the importance of steroids and there are multiple possible side effects. Depending on her Lille score she may continue a 30-day course versus stopping them. She reiterates understanding to get the Anne score next
-To ensure compliance I told the primary team to only give her a week of 40 mg once daily
Subjective
Subjective
Date of Service: July 09, 2024
Objective
Data Reviewed
Laboratory Data:
Laboratory Results
07/09/24 07:29
07/09/24 07:29
Laboratory Results
PT 17.2 Sec (11.4-14.6) H 07/09/24 07:29
INR 1.38 07/09/24 07:29
APTT 42.3 Sec (23.4-35.0) H 07/05/24 21:04
Phosphorus 3.3 mg/dl (2.5-4.5) 07/05/24 21:04
Magnesium 1.6 mg/dl (1.6-2.3) 07/08/24 05:19
Total Bilirubin 9.6 mg/dl (0.2-1.3) H 07/09/24 07:29
AST 190 U/L (14-36) H 07/09/24 07:29
ALT 42 U/L (0-35) H 07/09/24 07:29
Alkaline Phosphatase 325 U/L (38-126) H 07/09/24 07:29
Lipase 123 U/L (23-300) 07/05/24 14:05
Vital Signs and I&O:
Vital Signs
Temp Pulse Resp BP Pulse Ox
97.7 F 98 18 128/86 97
07/09/24 07:45 07/09/24 07:45 07/09/24 07:45 07/09/24 07:45 07/09/24 07:45
I&O
07/08/24 07/09/24 07/10/24
06:59 06:59 06:59
Intake Total 310 / 310 240 / 240
Balance 310 / 310 240 / 240
--- NOTE | 2024-07-09 10:19 | W.PN.HOSP.TC ---
Addendum entered and electronically signed by James Epps MD 07/09/24 16:05:
Seen and examined by me independently in collaboration with the medical assistant internal medicine Arthur.
Lab data and imaging data reviewed.
Addendum as below :
Patient tried to leave hospital without notice . she stayed back with persuasion till reviewed by physicians.
Patient feels great. Denies any nausea vomiting. Tolerating diet. Denies any dizziness.
No fever or chills.
Feels her abdominal distention is slightly coming back. No abdominal pain.
Her is back from rehab yesterday and going to pick her up.
Afebrile and hemodynamically stable. Mild abdominal distention noted. No tenderness. Chest clear.
Lab data noted.
Much improved sodium. Will hold further salt tablet. Discussed with calciner feeder who are okay to resume diuretics which she needs for ascites management. She had 2 large-volume paracentesis. Will put her back on spironolactone and Lasix.
Advised to get a follow-up BMP in a week.
With regards to alcohol hepatitis and decompensation GI planning to start on steroids prednisone. discussed with the patient who understands the treatment indication of prednisone and will follow closely with GI. She understands the need of
getting Anne score in 7 days for which she needs a blood test. Continue diuretics for ascites management. Add lactulose for elevated NH3 ;no signs of HE.
With regards to alcoholism she is going to quit when she returns home. No signs and symptoms of withdrawal currently. She spoke with Leah garcia and planning to do outpatient alcohol rehab.
Medically stable for discharge. Cleared by GI and nephrology 2.
Total time of discharge 35 min
Original Note:
Today's Communication/Plan
-
pt wanting to leave. Discharge home with steroids and GI follow up
Assessment / Plan
Assessment / Plan
Assessment:
58-year-old female past ministry of alcohol use disorder, recurrent ascites, alcoholic hepatitis, jaundice presents with acute symptomatic hyponatremia.
Plan:
#Acute hyponatremia
Sodium on admission 114
Sodium today 127
3% saline discontinued
Started on Na tablets by nephrology
Etiology likely secondary to hepatorenal syndrome and volume overload
Urine sodium less than 5, osmolarity also low
Nephrology following
Fluid restriction
Mentation intact, patient is not confused or altered
#Abdominal ascites
Patient has a history of recurrent abdominal ascites
Ultrasound abdomen demonstrated small volume ascites
Patient currently has fluid wave present on exam
GI following
GI considering taking for paracentesis once sodium has improved
Right upper quadrant Doppler demonstrated no sonographic evidence for portal or hepatic vein thrombosis
IR preformed diagnostic paracentesis on 07/07/24. Removed 5850ml of asitic fluid
IV albumin replacement per protocol
Ascites fluid returned sterile
no need for ceftriaxone
#Suspected alcohol hepatitis
AST ALT and alk phos all elevated
T bilirubin 13, GGT elevated 610
Recent admission demonstrated T bilirubin of approximately 2, likely patient has acute injury of liver due to alcohol
Ultrasound abdomen demonstrated hepatomegaly, no suspicious focal hepatic lesions
GI to start steroids
Daily CMP
#Alcohol use disorder
Patient reports drinking 2 glasses of vodka per day, based on labs very likely much more
Patient would like rehab services, endorses wanting to get better
mortgage sales manager consult, [facility] consult- pt wanting outpatient rehab
Psychiatry consult pending
Continue [facility] protocol with supportive measures
#Hyperbilirubinemia
#Acute jaundice
Improving, LFTs still elevated
Likely acute on chronic transaminitis
T. bili 13.8 on admission
AST, ALT and alk phos also all elevated
GI consulted and following
Daily CMP
#Acute on chronic anemia
Likely anemia of chronic disease, iron labs demonstrated extremely high ferritin and high iron saturation
Will check stools for heme positivity
Hemoglobin returned 6.8, new consent obtained 07/07/24 1 unit packed red blood cells given.
Transfuse if below 7
Continue to monitor with daily CBC
#Hypomagnesemia
Resolved
Magnesium returned low
Status post magnesium infusion x 2
#Hypokalemia
Resolved
Status post potassium replacement
Monitor with daily CMP
#Asymptomatic bacteriuria
UA on admission demonstrates that urine is dirty with bacteria and yeast as well as white blood cells
UA sample demonstrated it was not a clean catch and culture returned mixed
Recheck UA with culture
Patient currently has no symptoms, she is not or immune suppressed
Guidelines recommend no need for antibiotics at this time
CODE STATUS: DNR
Diet: Regular with fluid restriction
DVT prophylaxis: SCDs
Anticipated Discharge: Today
Subjective/Interval History
-
Date of Service: July 09, 2024
pt attempted to elope this morning. Code purple was called
Objective Data
-
Labs:
Laboratory Results
07/09/24
07:29
WBC 11.9 H
Hgb 8.7 L
Hct 26.2 L
Plt Count 145
PT 17.2 H
INR 1.38
Sodium 134 L
Potassium 3.6
Chloride 90 L
Carbon Dioxide 25
BUN 12
Creatinine 0.6
Glucose 118 H
Calcium 8.9
Total Bilirubin 9.6 H
AST 190 H
ALT 42 H
Alkaline Phosphatase 325 H
Vital Signs:
Vital Signs
Temp Pulse Resp BP Pulse Ox
97.7 F 98 18 128/86 97
07/09/24 07:45 07/09/24 07:45 07/09/24 07:45 07/09/24 07:45 07/09/24 07:45
I&O
07/08/24 07/09/24 07/10/24
06:59 06:59 06:59
Intake Total 310 / 310 240 / 240
Balance 310 / 310 240 / 240
Review of Systems
-
History Source: Patient
Constitutional: Reports No Symptoms
Respiratory: Reports No Symptoms
Cardiac: Reports No Symptoms
Abdomen/GI: Reports Abdominal Pain
Physical Exam
-
General: Well Nourished, No Apparent Distress, Comfortable and Conversant
Respiratory: Clear to Auscultation
Cardiac: Regular Rhythm and S1/S2
GI: Soft, Tender and Distended
Musculoskeletal: Edema, Right Lower Extrem and Edema, Left Lower Extrem
Skin: Warm and Dry
Neuro: Awake, Alert, Oriented and AO x 3
Psych: Calm and Intact Judgement/Insight
Data Reviewed
-
Labs: Labs Reviewed by me and Discussed with Physician
--- NOTE | 2024-07-09 10:41 | CM ---
Chart reviewed and plan is to home today with [facility], spouse to transport.
Plan; Home with [facility]
--- NOTE | 2024-07-09 10:55 | W.PN.NEPH.PH ---
Today's Communication / Plan
-
lasix/abigail
Assessment/Plan
-
Assessment
Cirrhosis
Suspected ETOH hepatitis
Ascites
Weakness/failure to thrive/poor oral intake
Acute hyponatremia
Jaundice
Hypotension
Hypothyroidism
Hypoalbuminemia
Plan
dc salt tabs
follow BMP
restart lasix/spironolactone
-
-
Date of Service: July 09, 2024
CC / HPI / ROS
-
Chief Complaint:
Hyponatremia
History of Present Illness:
serum sodium up to 134
hemodynamically stable, slightly low
Anemia stable low 8.7
Review of Systems:
non oliguric
no fevers
on O2
ascites
Labs
-
Labs:
WBC 11.9 10^3/uL (4.8-10.8) H 07/09/24 07:29
RBC 2.61 10^6/uL (4.20-5.40) L 07/09/24 07:29
Hgb 8.7 g/dL (12.0-16.0) L 07/09/24 07:29
Hct 26.2 % (37.0-47.0) L 07/09/24 07:29
Plt Count 145 10^3/uL (130-400) 07/09/24 07:29
Sodium 134 mmol/L (135-145) L 07/09/24 07:29
Potassium 3.6 mmol/L (3.5-5.1) 07/09/24 07:29
Chloride 90 mmol/L (98-107) L 07/09/24 07:29
Carbon Dioxide 25 mmol/L (22-30) 07/09/24 07:29
BUN 12 mg/dl (7-17) 07/09/24 07:29
Creatinine 0.6 mg/dL (0.6-1.0) 07/09/24 07:29
eGFR > 60.00 07/09/24 07:29
Glucose 118 mg/dl (70-99) H 07/09/24 07:29
Calcium 8.9 mg/dl (8.4-10.2) 07/09/24 07:29
Phosphorus 3.3 mg/dl (2.5-4.5) 07/05/24 21:04
Albumin 4.3 g/dl (3.5-5.0) D 07/09/24 07:29
Physical Exam
-
Vital Signs:
Vital Signs
Temp Pulse Resp BP Pulse Ox
97.7 F 98 18 128/86 97
07/09/24 07:45 07/09/24 07:45 07/09/24 07:45 07/09/24 07:45 07/09/24 07:45
Cardiovascular:: Regular rate and rhythm
Respiratory:: Bilateral: Coarse
Lung Excursion:: Normal
Abdomen:: Nontender and Soft
Bowel Sounds:: Normal
Extremity Edema:: None: Bilateral:
[2024-07-09 11:15] VITALS: BP 163/78
--- NOTE | 2024-07-09 13:54 | W.DCSUMMARY ---
Discharge Summary
Discharge Data
Date of Admission: 07/05/24
Date of Discharge: 07/09/24
-
Pending Results: No
Hospital Course
Discharging Physician : Mich Dinero
Disposition : Home
Primary care physician : Dr. Brielle Boland
Principal Discharge diagnosis : Acute hyponatremia, alcoholic hepatitis
Chronic Discharge diagnosis : Alcohol use disorder, alcoholic hepatitis, recurrent abdominal ascites, hyperbilirubinemia, jaundice, acute on chronic anemia, hypomagnesemia, hypokalemia, asymptomatic bacteriuria
Hospital Course : 58-year-old female past ministry of alcohol use disorder presents for increasing abdominal pain and swelling with weakness and bilateral lower extremity edema for the past 4 weeks. On presentation to the emergency room she was
found to have hyponatremia sodium 114. Other pertinent labs include total bilirubin 13.8, AST 292, alk phos 365 her MELD score was calculated 27. Patient received ultrasound abdomen which demonstrated hepatomegaly. GI was consulted, nephrology
was consulted. Patient was started on 3% hypertonic saline solution and admitted to IMU. Urine studies were checked which were consistent with hepatorenal syndrome. Patient was given hypertonic saline and her sodium was gradually increased.
Eventually patient was discontinued on normal saline and started on oral salt tablets. Her sodium continued to keep trending upwards. Patient was complaining of abdominal pain, had an elevated white count and we felt it was appropriate to do a
diagnostic paracentesis. Patient received diagnostic paracentesis, however she had 5.8 L of fluid removed, fluid returned sterile with low WBC count and albumin was given per protocol. As her fluid was sterile there is no need for ceftriaxone.
Conversation was had with patient regarding alcohol rehab, correctional casework specialist and psychiatry were consulted to speak to patient. Patient was agreeable to alcohol rehab however she wanted outpatient rehab. He was provided resources and told to follow-up
after discharge. During her stay her hemoglobin returned 6.8, consent was obtained and she received 1 unit packed red blood cell transfusion. Electrolytes were monitored and repleted as needed. Patient began being restless, wanting to be
discharged. She began to walk out of her room towards the elevators, a chandu skaggs was called and patient was redirected back to her room. On speaking with her she was adamant about wanting to be discharged. At that point she was medically stable
sodium had improved and we had a plan regarding her medications from nephrology and GI. Patient was initiated back on spironolactone and Lasix, we also initiated prednisone, per GI recommendation. She will follow-up with GI closely regarding her
steroids. She also will receive a BMP in a week after discharge. Patient will follow-up with her primary care physician within 1 week of discharge, gastroenterology in 2 weeks. Patient will seek outpatient alcohol rehab per her wishes.
Important imaging findings :
07/05/2024 abdominal ultrasound, impression:
1. Hepatomegaly. Increased hepatic echogenicity most consistent with severe fatty infiltration. No suspicious focal hepatic lesion identified sonographically.
2. Small volume of ascites.
3. Diffuse gallbladder wall thickening most likely related to ascites. No abnormal gallbladder dilation. Negative sonographic [place] sign.
4. Pancreas not well seen secondary to overlying bowel gas.
07/06/2024 chest x-ray, impression:
Low lung volumes without focal airspace disease or overt pulmonary edema.
07/06/2024 Doppler abdominal ultrasound, impression:
1. No sonographic evidence for portal or hepatic vein thrombosis.
2. Moderate right upper quadrant perihepatic ascites.
Procedure findings :
07/07/2024 diagnostic paracentesis, impression:
Successful ultrasound-guided paracentesis, yielding 5850 milliliters of ascitic fluid. Fluid was sent for laboratory analysis.
Discharge Plan
-
Patient Disposition: Home (Routine Discharge)
Discharge Diagnosis/Procedures: acute hyponatremia, alcoholic hepatitis
Condition: Fair
Diet: Low Sodium and Restrict fluids to 48 oz
Activity: As tolerated
Driving Restrictions: As prior to admission
Bathing Restrictions: None
Blood Work: CMP, INR, in one week
Activity Restrictions/Additional Instructions:
follow up with your PCP within one week of discharge
Follow up with GI in one week of discharge
Follow up with [facility] for outpatient rehab
Referrals:
Brielle Boland PA-C [Family Provider] - in less than 1 week
Jessica Ware DO [Active] - in one week
Additional Discharge Medication Instructions: please start lasix 40mg by mouth daily
Please start lactulose 20g by mouth twice daily
Please start pantoprazole 40mg by mouth daily
Changed spironolactone from 100 to 50mg daily. Take 50 mg by mouth daily
Stopped lasix 20mg as needed
Prescriptions:
New
pantoprazole 40 mg Tablet,Delayed Release (Dr/Ec)
40 mg PO DAILY Qty: 30 0RF
furosemide [Lasix] 40 mg tablet
40 mg PO DAILY Qty: 30 0RF
lactulose 20 gram/30 mL solution
20 g PO BID Qty: 1200 0RF
Rx Instructions:
aim for 2-3 bowel movements per day
prednisone 20 mg tablet
40 mg PO DAILY Qty: 40 0RF
Rx Instructions:
renew prescription by GI doctor
Continued
mirtazapine 30 mg Tablet
30 mg PO HS
magnesium 250 mg tablet
400 mg PO BID
levothyroxine [Synthroid] 50 mcg Tablet
50 mcg PO DAILY
lorazepam [Ativan] 1 mg Tablet
1 mg PO HS
cyanocobalamin (vitamin B-12) 1,000 mcg tablet
1,000 mcg PO DAILY
thiamine HCl (vitamin B1) 100 mg tablet
100 mg PO BID
folic acid 1 mg tablet
1 mg PO DAILY
Changed
spironolactone 50 mg Tablet
50 mg PO DAILY Qty: 30 0RF
Discontinued
furosemide [Lasix] 20 mg Tablet
20 mg PO DAILYPRN PRN (Reason: fluid)
Discharge Orders:
Discharge Patient (As Directed); Ordered 07/09/24
Ordered By: Mark Dinero
Discharge Date and Time
Discharge Date/Time: 07/09/24 12:19
Print Language: DJIBOUTIAN
== END 2024-07-09 12:19 | disposition home health service (06) | DRG 640 ==
LOC: 4 WEST ACU 17:18
PROVIDERS: Clinical Nurse Specialist Family Health; Nurse Practitioner; Nurse Practitioner Adult Health; Nurse Practitioner Family; Radiology Vascular & Interventional Radiology; Specialist; Student in an Organized Health Care Education/Training Program; ADMITTING PHYSICIAN Internal Medicine; ATTENDING PHYSICIAN Internal Medicine; CONSULT PHYSICIAN Internal Medicine; CONSULT PHYSICIAN Specialist; EMERGENCY PHYSICIAN Student in an Organized Health Care Education/Training Program; FAMILY PHYSICIAN Physician Assistant Medical
PROC: 0W9G3ZX Drainage of Peritoneal Cavity, Percutaneous Approach, Diagnostic (ICD-10-PCS; 2024-07-07)
DX: E87.1 Hypo-osmolality and hyponatremia (principal); K76.7 Hepatorenal syndrome; E46 Unspecified protein-calorie malnutrition; Z68.1 Body mass index [BMI] 19.9 or less, adult; Z72.0 Tobacco use; K70.11 Alcoholic hepatitis with ascites; K70.31 Alcoholic cirrhosis of liver with ascites; F10.20 Alcohol dependence, uncomplicated; E83.42 Hypomagnesemia; E87.6 Hypokalemia; D64.9 Anemia, unspecified
CPT/HCPCS: 88305; 49083; 71045; 76700; 80048; 80051; 80053; 80061; 80306; 80307; 81003; 81015; 82010; 82042; 82077; 82140; 82570; 82607; 82728; 82746; 82977; 83540; 83550; 83605; 83690; 83735; 83935; 84100; 84145; 84300; 84439; 84443; 84703; 85014; 85018; 85025; 85610; 85730; 86850; 86900; 86901; 86920; 87015; 87040; 87070; 87086; 87205; 87811; 88112; 89051; 93005; 93975; 97163; 97166; 97530; 99285; P9016; P9047

== ENCOUNTER → 2024-07-27 08:34 | Outpatient (REF) | payer OTHER, SELFPAY ==
[2024-07-27 08:58] VITALS: BP 128/79; BP_SYST 98
[2024-07-27 10:31] LABS: Body Fluid Polymorphonuclear 19.1 %; Body Fluid WBC 47 /CUMM
[2024-07-27 10:32] LABS: Body Fluid Mononuclear 80.9 %
[2024-07-27 10:36] VITALS: BP 115/71
[2024-07-27 11:17] LABS: Body Fluid Second Tech AMA
[2024-07-27 11:20] LABS: Body Fluid Albumin < 1.0 g/dl; Body Fluid Protein < 2.0 g/dl
== END ==
LOC: RADI 08:34
PROVIDERS: ATTENDING PHYSICIAN Internal Medicine; FAMILY PHYSICIAN Physician Assistant Medical
DX: R18.8 Other ascites (principal)
CPT/HCPCS: 49083; 88305; 82042; 84157; 87015; 87070; 87205; 88112; 89051

== ENCOUNTER → 2024-08-16 07:07 | Outpatient (REF) | payer OTHER, SELFPAY ==
[2024-08-16 07:40] VITALS: BP 115/69; BP_SYST 86
[2024-08-16 09:15] VITALS: BP 107/63; BP_SYST 87
[2024-08-16 09:16] LABS: Body Fluid Mononuclear 48.1 %; Body Fluid Polymorphonuclear 51.9 %; Body Fluid WBC 104 /CUMM
[2024-08-16 09:26] VITALS: BP 107/63
[2024-08-16 09:37] LABS: Body Fluid Second Tech AMA
[2024-08-16 09:45] LABS: Body Fluid Albumin < 1.0 g/dl; Body Fluid Protein < 2.0 g/dl
== END ==
LOC: RADI 07:07
PROVIDERS: ATTENDING PHYSICIAN Internal Medicine; FAMILY PHYSICIAN Physician Assistant Medical
DX: R18.8 Other ascites (principal)
CPT/HCPCS: 49083; 88305; 82042; 84157; 87015; 87070; 87205; 88112; 89051; P9047

== ENCOUNTER 2024-08-16 09:32 | Outpatient (RCR) | payer OTHER, SELFPAY ==
[2024-07-27 11:15] VITALS: BP 133/75
[2024-07-27 11:18] VITALS: BP 133/75
[2024-07-27] MEDS: FLEXBUMIN 100 IV (11:18)
[2024-07-27] MEDS: FLEXBUMIN 50 IV (13:01)
[2024-07-27 13:02] VITALS: BP 117/66
[2024-07-27 14:05] VITALS: BP 114/67
[2024-08-16 09:50] VITALS: BP 103/53
[2024-08-16 09:54] VITALS: BP 103/53
[2024-08-16] MEDS: FLEXBUMIN 100 IV (09:54)
[2024-08-16] MEDS: FLEXBUMIN 50 IV (11:42)
[2024-08-16 11:44] VITALS: BP 95/45
[2024-08-16 12:40] VITALS: BP 98/51
== END 2024-08-23 23:59 | disposition home or self-care (01) ==
LOC: OID 09:32
PROVIDERS: ATTENDING PHYSICIAN Internal Medicine; FAMILY PHYSICIAN Physician Assistant Medical
DX: D64.9 Anemia, unspecified (principal); F10.90 Alcohol use, unspecified, uncomplicated; K70.11 Alcoholic hepatitis with ascites; R74.8 Abnormal levels of other serum enzymes; Z63.72 Alcoholism and drug addiction in family; Z85.819 Personal history of malignant neoplasm of unspecified site of lip, oral cavity, and pharynx; Z87.891 Personal history of nicotine dependence
CPT/HCPCS: 88305; 49083; 82042; 84157; 87015; 87070; 87205; 88112; 89051; 96365; 96366; P9047

== ENCOUNTER → 2024-09-22 07:37 | Outpatient (REF) | payer OTHER, SELFPAY ==
[2024-09-22 08:00] VITALS: BP 121/78; BP_SYST 81
[2024-09-22 08:40] VITALS: BP 108/70
[2024-09-22 09:03] LABS: Body Fluid WBC 213 /CUMM
[2024-09-22 09:19] LABS: Body Fluid Albumin < 1.0 g/dl; Body Fluid Protein 2.3 g/dl
[2024-09-22 09:38] LABS: Body Fluid Second Tech AMA
== END ==
LOC: RADI 07:37
PROVIDERS: ATTENDING PHYSICIAN Internal Medicine
DX: R18.8 Other ascites (principal)
CPT/HCPCS: 88305; 49083; 82042; 84157; 87015; 87070; 87205; 88112; 89051

== ENCOUNTER → 2024-11-11 07:40 | Outpatient (REF) | payer OTHER, SELFPAY ==
[2024-11-11 08:11] VITALS: BP 124/78; BP_SYST 82
[2024-11-11 08:33] LABS: INR 1.14; PT 14.9 Sec (11.4-14.6)
[2024-11-11 08:44] LABS: % Basophils 1.4 % (0-2); % Eosinophils 1.8 % (0-6); % Immature Granulocytes 0.8 % (0-0.5); % Lymphocytes 30.2 % (20.5-51.1); % Neutrophils 51.8 % (42.2-75.2); Absolute Basophils 0.1 10^3/uL (0-0.2); Absolute Eosinophils 0.1 10^3/uL (0-0.7); Absolute Lymphocytes 1.5 10^3/uL (1.2-3.4); Absolute Monocytes 0.7 10^3/uL (0.1-0.6); Absolute Neutrophils 2.5 10^3/uL (1.4-6.5); Hematocrit 35.8 % (37.0-47.0); Hemoglobin 11.9 g/dL (12.0-16.0); Mean Corp Hgb Conc. 33.2 g/dL (33.0-37.0); Mean Corpuscular Hgb 34.8 pg (27.0-31.0); Mean Corpuscular Volume 104.7 fL (81.0-99.0); Mean Platelet Volume 9.3 fL (7.4-10.4); Nucleated Red Blood Cells % 0 %; Platelet Count 104 10^3/uL (130-400); Red Blood Cell Count 3.42 10^6/uL (4.20-5.40); Red Cell Dist. Width 14.5 % (11.5-14.5); White Blood Cell Count 4.9 10^3/uL (4.8-10.8)
[2024-11-11 09:01] LABS: ALT (SGPT) 23 U/L (0-35); AST (SGOT) 73 U/L (14-36); Albumin 4.1 g/dl (3.5-5.0); Alkaline Phosphatase 255 U/L (38-126); Blood Urea Nitrogen 15 mg/dl (7-17); Carbon Dioxide 29 mmol/L (22-30); Chloride 98 mmol/L (98-107); Glucose 138 mg/dl (70-99); Potassium 3.6 mmol/L (3.5-5.1); Sodium 136 mmol/L (135-145); Total Bilirubin 3.6 mg/dl (0.2-1.3); Total Protein 8.1 g/dl (6.3-8.2); eGFR > 60.00
[2024-11-11 09:11] LABS: AFP Male/Tumor Marker 5.28 ng/ml
== END ==
LOC: RADI 07:40
PROVIDERS: ATTENDING PHYSICIAN Internal Medicine; FAMILY PHYSICIAN Physician Assistant
DX: R18.8 Other ascites (principal); Z53.8 Procedure and treatment not carried out for other reasons
CPT/HCPCS: 36415; 76705; 80053; 82105; 85025; 85610

== ENCOUNTER → 2024-12-30 07:05 | Outpatient (REF) | payer OTHER, SELFPAY ==
[2024-12-30 07:17] VITALS: BP 110/70; BP_SYST 79
[2024-12-30 07:56] VITALS: BP 111/68
[2024-12-30 08:29] LABS: Body Fluid Mononuclear 81.6 %; Body Fluid Polymorphonuclear 18.4 %; Body Fluid WBC 207 /CUMM
[2024-12-30 09:14] LABS: Body Fluid Second Tech EF
[2024-12-30 09:27] LABS: Body Fluid Albumin < 1.0 g/dl; Body Fluid Protein 2.9 g/dl
== END ==
LOC: RADI 07:05
PROVIDERS: ATTENDING PHYSICIAN Internal Medicine; FAMILY PHYSICIAN Physician Assistant Medical
DX: R18.8 Other ascites (principal)
CPT/HCPCS: 88305; 49083; 82042; 84157; 87015; 87070; 87205; 88112; 89051

== ENCOUNTER 2025-01-16 23:12 | Emergency (ER) | payer OTHER, SELFPAY ==
[2025-01-16 23:13] VITALS: BP 108/77; BMI 19.8
--- NOTE | 2025-01-16 23:15 | EDRN ---
Patient ambulated to the restroom and back in bd resting comfortably, patient was able to ambulate without difficulty
[2025-01-16 23:19] VITALS: BP 108/77
[2025-01-16 23:44] LABS: % Basophils 1.3 % (0-2); % Immature Granulocytes 0.5 % (0-0.5); % Lymphocytes 39.6 % (20.5-51.1); % Neutrophils 46.6 % (42.2-75.2); Absolute Basophils 0.1 10^3/uL (0-0.2); Absolute Eosinophils 0.1 10^3/uL (0-0.7); Absolute Lymphocytes 2.4 10^3/uL (1.2-3.4); Absolute Monocytes 0.7 10^3/uL (0.1-0.6); Absolute Neutrophils 2.8 10^3/uL (1.4-6.5); Hematocrit 27.8 % (37.0-47.0); Hemoglobin 9.5 g/dL (12.0-16.0); Mean Corp Hgb Conc. 34.2 g/dL (33.0-37.0); Mean Corpuscular Hgb 36.5 pg (27.0-31.0); Mean Corpuscular Volume 106.9 fL (81.0-99.0); Nucleated Red Blood Cells % 0 %; Red Cell Dist. Width 14.6 % (11.5-14.5); White Blood Cell Count 5.9 10^3/uL (4.8-10.8)
[2025-01-17] VITALS (10 sets, daily range): BP systolic 91–107; BP diastolic 58–67
[2025-01-17 00:03] LABS: ALT (SGPT) 42 U/L (0-35); AST (SGOT) 198 U/L (14-36); Albumin 4.2 g/dl (3.5-5.0); Alkaline Phosphatase 244 U/L (38-126); Blood Urea Nitrogen 20 mg/dl (7-17); Calcium 9.7 mg/dl (8.4-10.2); Carbon Dioxide 30 mmol/L (22-30); Chloride 99 mmol/L (98-107); Estimated Creatinine Clearance 87 ml/min; Glucose 102 mg/dl (70-99); Potassium 3.5 mmol/L (3.5-5.1); Sodium 142 mmol/L (135-145); Total Bilirubin 3.7 mg/dl (0.2-1.3); Total Protein 8.1 g/dl (6.3-8.2); eGFR > 60.00
[2025-01-17 00:17] LABS: Alcohol 391 mg/dl; Magnesium 1.5 mg/dl (1.6-2.3)
[2025-01-17 00:25] LABS: Mean Platelet Volume 9.3 fL (7.4-10.4); Platelet Count 81 10^3/uL (130-400)
[2025-01-17 00:27] LABS: Anisocytosis 1+; Macrocytosis 1+; Normal RBC Morphology No; Target Cells 1+
[2025-01-17 00:28] LABS: Polychromasia Occasional
[2025-01-17 00:29] LABS: Ovalocytes Occasional
[2025-01-17 00:30] LABS: Hypochromasia OCC
[2025-01-17 00:31] LABS: Tear Drop Red Blood Cells Occasional
--- NOTE | 2025-01-17 01:26 | ED.GENMED ---
History of Present Illness
General
Chief Complaint: Numbness
Source: patient and previous hospital records (Previous hospitalization June 2024 for alcohol abuse, acute hyponatremia, alcoholic hepatitis)
Exam Limitations: none
Time Seen by Provider: 01/16/25 23:56
Nursing documentation reviewed up to this point in time: agreed with
History of Present Illness
History of Present Illness:
This is a 59-year-old woman who has longstanding history of alcohol abuse, alcoholic cirrhosis with ascites. She undergoes sporadic paracentesis every 6 to 8 weeks last occurring December 30. She was previously hospitalized June 2020 for with
similar complaints of weakness and was noted to be significantly hyponatremic at that time with initial sodium of 114, treated with hypertonic saline. Since that time she has been compliant with her diuretics, vitamins but admits to ongoing alcohol
use, more so over the past week or 2.
She admits to chronic poor/tumultuous relationship with her and she has been attempting to arrange for him to leave the household but has been unsuccessful.
More recently she has been in touch with the woman's place and was provided with paperwork to be filed at the local court house but patient states this must be done within the next 4 days. She is unclear as to why it must be filed within 4 days but
she has been frustrated and unable to accomplish this task.
She complains of bilateral lower extremity numbness with difficulty ambulating but denies falls. She denies back pain, denies abdominal pain. No cough no shortness of breath.
She arrives to the ED via EMS.
Since arrival to the ED patient has successfully ambulated to and from the bathroom with steady unaided gait.
She admits to daily alcohol consumption with last drink earlier today. She drinks vodka on a daily basis.
Past History
Past History
ED Past Medical History: Cancer (Mouth cancer, ), Psychiatric (depression) and Other (Chronic alcohol abuse, alcoholic cirrhosis with ascites)
ED Past Surgical History: Other (Mouth cancer with removal of Lymph nodes, some of the right jaw removed, )
Social History
Tobacco: Former smoker
Alcohol: Daily
Personal:
Living: with family
Employment: Employed
Family History
Family History: Other (Noncontributory)
Phy Exam
Physical Exam
Physical Exam:
GENERAL: 59-year-old woman appears somewhat older than stated age. Mildly disheveled she is bright and alert, easily communicative and in no acute distress. Moderate odor of alcohol about the patient's breath.
EYE: pupils equal and reactive. Mildly icteric.
NECK: Supple, nontender, no meningismus, no significant adenopathy.
ENT: posterior pharynx is clear, oral mucosa is moist. TM clear b/l, nares patent.
CARDIAC: Regular rate and rhythm. no murmur.
LUNGS: Clear breath sounds bilaterally, no acute respiratory distress, no wheezes/rales/rhonchi
ABDOMEN: Soft, minimally distended, without focal tenderness, no r/g, no cvat. normoactive BS.
NEUROLOGICAL: Alert and oriented x3, no focal neuro deficits. Motor strength is 5/5 bilaterally. Gross sensation is intact. Gait is acosta and steady.
SKIN: Warm and dry, normal color, skin intact. No rash.
MUSCULOSKELETAL: No C/C/E. peripheral pulses are full and equal b/l. No palpable tenderness.
PSYCH: Mildly anxious. Admits to ongoing alcohol use. Denies suicidal thoughts or plan. Admits to chronically poor relationship with her but denies physical abuse.
Course
Orders/Labs/Results
Orders:
Orders
01/16/25 23:20
Electrocardiogram (*1) Urgent
Reason for Study: Fatigue / Weakness
EKG- Treatment ONCE
01/16/25 23:25
Alcohol Urgent
Complete Blood Count/With Diff Urgent
Comprehensive Metabolic Panel Urgent
Magnesium Urgent
Comment: ADD ON
01/16/25 23:52
Add On- LAB Urgent
Tests Added?: alcohol
01/17/25 00:01
Add On- LAB Urgent
Tests Added?: Mg
01/17/25 02:03
Mirtazapine [Remeron] 30 mg PO HS STA
01/17/25 02:04
Mirtazapine [Remeron] 30 mg .ROUTE .STK-MED ONE
01/17/25 02:55
Lorazepam [Ativan] 0.5 mg PO NOW STA
Abnormal Lab Results
01/16/25
23:25
RBC 2.60 L 10^6/uL
(4.20-5.40)
Hgb 9.5 L g/dL
(12.0-16.0)
Hct 27.8 L %
(37.0-47.0)
MCV 106.9 H fL
(81.0-99.0)
MCH 36.5 H pg
(27.0-31.0)
RDW 14.6 H %
(11.5-14.5)
Plt Count 81 L 10^3/uL
(130-400)
Absolute Monos (auto) 0.7 H 10^3/uL
(0.1-0.6)
Monocytes % 11.0 H %
(1.7-9.3)
BUN 20 H mg/dl
(7-17)
Glucose 102 H mg/dl
(70-99)
Magnesium 1.5 L mg/dl
(1.6-2.3)
Total Bilirubin 3.7 H mg/dl
(0.2-1.3)
AST 198 H U/L
(14-36)
ALT 42 H U/L
(0-35)
Alkaline Phosphatase 244 H U/L
(38-126)
01/16/25 23:25
01/16/25 23:25
Vital Signs
Initial and Last Documented VS:
Initial Vital Signs
Temp Pulse Resp BP
97.7 F 83 20 108/77
01/16/25 23:13 01/16/25 23:13 01/16/25 23:13 01/16/25 23:13
Last Documented Vital Signs
Temp Pulse Resp BP Pulse Ox
97.7 F 81 17 94/60 93
01/16/25 23:13 01/17/25 05:45 01/17/25 05:45 01/17/25 06:00 01/17/25 05:30
MDM/Problems Addressed
Differential Diagnosis Includes:
Chronic alcohol abuse with concern for increase in alcohol consumption.
Concern for recurrent hyponatremia, concern for other electrolyte abnormality.
No evidence of focal neurologic deficit, no history of trauma and no evidence of trauma on exam. Patient has successfully ambulated about exam room with steady unaided gait.
Laboratory studies are pending.
Very mild abdominal ascites noted but abdomen is otherwise soft without appreciable tenderness.
At this point no indication for imaging.
Chronic conditions affecting care: Psychiatric illness and Other (Chronic alcohol abuse, recurrent ascites)
*Pulse Oximetry
Patient hypoxic: no
*EKG
Interpreted by ED Provider?: Yes
Interpretation: normal
Comparison EKG: no changes (Unchanged from previous June 2024)
Rate: normal
Rhythm: sinus
[place]: normal axis
Interval: normal interval
QRS Pattern: normal QRS
Ischemia: no ischemia
*[employer] Design Engineer Interpretation
Rate: normal
Interpretation: normal
Rhythm: sinus
*Critical Care Note
Total Time (30-74mins, 75-104mins- exclusive of procedures): Not Applicable
Update Note
Update Note:
01:45
Labs are overall unremarkable save for elevated alcohol level 391. Moderately elevated LFTs have trended up slightly from previous. Normal electrolytes. Mild but stable anemia. Mild but stable thrombocytopenia.
After hospitalization in June patient states that she had remained sober until October and has been drinking on a regular basis since then. She admits to significant frustration with her . Adamantly denies physical abuse but admits that
they just do not get along.
After lengthy talk she is agreeable to inpatient rehabilitation.
Will contact Leah garcia.
06:00
Patient has been tentatively accepted to [facility].
Awaiting morning bed assignment and arrangements for transfer.
Patient resting comfortably. No evidence of alcohol withdrawal.
ED Attending Note
-
Portions of this chart may have been created with voice recognition software.� Occasional wrong word or��sound alike� substitutions may have occurred due to the inherent limitations of voice recognition software.
Discharge Plan
Departure
Patient Disposition: Acute Rehab Facility
Date of Disposition: 01/17/25
Time of Disposition: 03:28
Discharge Problem:
Alcohol abuse
Prescriptions:
No Action
mirtazapine 30 mg Tablet
30 mg PO HS
magnesium 250 mg tablet
400 mg PO BID
levothyroxine [Synthroid] 50 mcg Tablet
50 mcg PO DAILY
lorazepam [Ativan] 1 mg Tablet
0.5 mg PO HS
folic acid 1 mg tablet
1 mg PO DAILY
furosemide [Lasix] 40 mg tablet
40 mg PO DAILY Qty: 30 0RF
thiamine HCl (vitamin B1) 100 mg tablet
100 mg PO DAILY Qty: 30 0RF
bupropion HCl [Wellbutrin XL] 150 mg Tablet Extended Release 24 Hr
150 mg PO DAILY
spironolactone 50 mg tablet
100 mg PO DAILY
Referrals:
Brielle Boland PA-C [Family Provider] -
Interventions
Interventions:
*Risk Screen - Suicide Last Done: 01/16/25 23:13
*General Assessment Last Done: 01/16/25 23:13
*Neglect/Abuse Screening Last Done: 01/16/25 23:13
*ED- Fall Risk Assessment Last Done: 01/16/25 23:28
*ED COVID-19 Vaccine History Last Done: 01/16/25 23:13
ED- Neurological Assessment Last Done: 01/16/25 23:28
Discharge Date and Time
Print Language: KOREAN
[2025-01-17] MEDS: REMERON 30 MG PO (02:06)
--- NOTE | 2025-01-17 02:19 | EDRN ---
contacted [facility] for patient
[2025-01-17] MEDS: ATIVAN 0.5 MG PO (03:30)
--- NOTE | 2025-01-17 03:47 | EDRN ---
Patient provided with a lunch box, waiting on placement at this time.
--- NOTE | 2025-01-17 06:12 | EDRN ---
[facility] in to see patient to update her on placement at [facility], however have to wait for the morning staff there to process insurance and arrange transport
== END 2025-01-17 10:20 ==
LOC: EMR 23:12
PROVIDERS: EMERGENCY PHYSICIAN Emergency Medicine; FAMILY PHYSICIAN Physician Assistant Medical
DX: R20.0 Anesthesia of skin (principal); F10.129 Alcohol abuse with intoxication, unspecified; Y90.8 Blood alcohol level of 240 mg/100 ml or more; D64.9 Anemia, unspecified; K70.31 Alcoholic cirrhosis of liver with ascites; Z63.0 Problems in relationship with spouse or partner; F32.A Depression, unspecified; F41.9 Anxiety disorder, unspecified; Z85.819 Personal history of malignant neoplasm of unspecified site of lip, oral cavity, and pharynx; Z87.891 Personal history of nicotine dependence; Z88.0 Allergy status to penicillin; Z91.048 Other nonmedicinal substance allergy status
CPT/HCPCS: 99285; 80053; 82077; 83735; 85025; 93005